=== PATIENT | male | born 1960 | race Caucasian/White ===

== ENCOUNTER 2017-11-02 12:07 | Inpatient (IN) | payer OTHER, MEDICAID ==
[~2017-11-02] VITALS: Ht 165.1 cm; Wt 54.0 kg
[2017-11-02 17:06] VITALS: BP 109/68
[2017-11-02] MEDS ORDERED: NYSTATIN ORAL SUSP 5 ML UDC ONE (19:53)
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
[2017-11-02] MEDS: NYSTATIN ORAL SUSP 5 ML UDC PO SCH (20:39)
[2017-11-02] MEDS: QUEtiapine 25 MG (SEROquel) TAB IMMEDIATE RELEASE PO SCH (20:40)
[2017-11-02] MEDS: ENOXAPARIN 30 MG/0.3 ML (LOVENOX) SYR SC SCH (20:40)
[2017-11-02] MEDS: oxyCODONE/APAP 5/325MG (PERCOCET 5) TABLET PO PRN (20:40)
[2017-11-02] MEDS: DOCUSATE SODIUM 100 MG (COLACE) CAP PO SCH (20:41)
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
[2017-11-03] MEDS: oxyCODONE/APAP 5/325MG (PERCOCET 5) TABLET PO PRN ×5 (03:43→21:26)
[2017-11-03 05:22] VITALS: BP 110/75
[2017-11-03] MEDS: NYSTATIN ORAL SUSP 5 ML UDC PO SCH ×3 (05:28→16:59)
[2017-11-03] MEDS: lisINopril 10 MG (PRINIVIL) TABLET PO SCH (07:55)
[2017-11-03] MEDS: ENOXAPARIN 30 MG/0.3 ML (LOVENOX) SYR SC SCH ×2 (07:55→21:25)
[2017-11-03] MEDS: DOCUSATE SODIUM 100 MG (COLACE) CAP PO SCH ×2 (07:56→21:26)
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
[2017-11-03] MEDS ORDERED: lisINopril 40 MG (PRINIVIL) TABLET PO SCH (09:00)
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
--- NOTE | 2017-11-03 13:29 | Physical Therapy Daily Note ---
PT Daily Note-Current Subjective "Perseverance" "I hope I worked hard today." Transfers Functional [place] Measure 0=Not Assessed/NA 4=Minimal Assistance 1=Total Assistance 5=Supervision or Setup 2=Maximal Assistance 6=Modified [place] 3=Moderate Assistance 7=Complete IndependenceIRFPAI Quality Coding Scale 6 Independent with activity with or without an assistive device 5 Patient requires set up or clean up by helper. Patient completes activity by themselves 4 Supervision or touching assist (CGA). [employer] provide cues , steadying assist 3 The helper provides less than half the effort to complete the activity 2 The helper provides more than half the effort to complete the activity 1 Dependent. The helper does all the effort to complete an activity 7 Patient refused to complete or attempt activity 9 The patient did not perform the activity before the current illness or injury 88 Not attempted due to Medical conditions or safety concerns Weight Bearing Right Lower Extremity: Right Non Weight Bearing Left Lower Extremity: Left Weight Bearing/Tolerated Treatments Supine to from sit with mod assist and assist to move his right LE. Sat EOB and performed AP, LAQ on the left. Worked on deep breathing and education on importance of upright mobility. Also discussed risk of pneumonia and bed sores. Pt able to sit EOB and scoot up towards the head of bed with CGA and light assist to lift his right leg. Pt in bed post treatment with needs met. Assessment Motivated and cooperative. Aware of his precautions. PT Short Term Goals Short Term Goals Time Frame: November 10, 2017 Transfers (B,C,W/C) (FIM): 4 Gait (FIM): 1 Gait Distance Comment: 5' Gait Level of Assist: 4 Gait Assistive Device: FWW Wheelchair Distance: 50' PT Sponge Fisherman Goals Sponge Fisherman Goals PT Sponge Fisherman Goals Time Frame: Nov 24, 2017 Transfers (B,C,W/C) (FIM): 5 Sit to Lying (QC): 4 Lying-Sitting on Side/Bed(QC): 4 Sit to Stand (QC): 4 Rollin Roll Left to Right (QC): 4 Chair/Oks-is-Nqjgx Xfer(QC): 4 Car Transfer (QC): 4 Gait (FIM): 1 Distance: 20' Walk 10 feet (QC): 4 Walk 10ft-Uneven Surface(QC): 4 Gait Level of Assist: 4 Gait Assistive Device: FWW Wheelchair (FIM): 6 Distance: 150' Wheel 50 feet with 2 turns (QC: 6 PT Plan Problem List Problem List: Activity Tolerance, Functional Strength, Safety, Balance, Gait, Transfer, Bed Mobility Treatment/Plan Treatment Plan: Continue Plan of Care Treatment Plan: Bed Mobility, Concurrent Therapy, Education, Functional Activity [place], Functional Strength, Group Therapy, Gait, Safety, Therapeutic Exercise, Transfers Treatment Duration: Nov 24, 2017 Frequency: At least 5 of 7 days/Wk (IRF) Estimated Hrs Per Day: 1.5 hours per day Patient and/or Family Agrees t: Yes Safety Risks/Education Patient Education: Reviewed Precautions, Safety Issues Teaching Recipient: Patient Teaching Methods: Demonstration Response to Teaching: Verbalize Understanding, Reinforcement Needed Time/GCodes Time In: 1300 Time Out: 1327 Total Billed Treatment Time: 27 Total Billed Treatment visit FA 27 MALI MATAMOROS PT November 03, 2017 13:29
[2017-11-03] MEDS ORDERED: RT-ALBUINH INH (13:31)
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
[2017-11-03] MEDS: SALIVA STIMULANT MOUTH SPRAY (BIOTENE) 1.5 OZ MM PRN (16:59)
[2017-11-03 17:07] VITALS: BP 123/70
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
[2017-11-03] MEDS: QUEtiapine 25 MG (SEROquel) TAB IMMEDIATE RELEASE PO SCH (21:26)
[2017-11-04] MEDS: NYSTATIN ORAL SUSP 5 ML UDC PO SCH ×4 (00:41→17:12)
[2017-11-04] MEDS: oxyCODONE/APAP 5/325MG (PERCOCET 5) TABLET PO PRN ×3 (02:44→19:45)
[2017-11-04 05:12] VITALS: BP 117/75
[2017-11-04 05:49] LABS: BASOPHILS % (AUTO) 0 % (0-10); EOSINOPHILS # (AUTO) 0.2 10^3/uL (0.0-0.3); EOSINOPHILS % (AUTO) 2 % (0-10); HEMATOCRIT 34 % (40-54); HEMOGLOBIN 11.3 G/DL (13.3-17.7); LYMPHOCYTES # (AUTO) 1.2 X 10^3 (1.0-4.0); LYMPHOCYTES % (AUTO) 15 % (12-44); MEAN CORPUSCULAR HEMOGLOBIN 30 PG (25-34); MEAN CORPUSCULAR HGB CONC 33 G/DL (32-36); MEAN CORPUSCULAR VOLUME 91 FL (80-99); MEAN PLATELET VOLUME 9.5 FL (7.4-10.4); MONOCYTES # (AUTO) 0.8 X 10^3 (0.0-1.0); MONOCYTES % (AUTO) 10 % (0-12); NEUTROPHILS # (AUTO) 5.8 X 10^3 (1.8-7.8); NEUTROPHILS % (AUTO) 72 % (42-75); PLATELET COUNT 290 10^3/uL (130-400); RED BLOOD COUNT 3.77 10^6/uL (4.35-5.85); RED CELL DISTRIBUTION WIDTH 14.4 % (10.0-14.5)
[2017-11-04 06:15] LABS: ALANINE AMINOTRANSFERASE 105 U/L (0-55); ALBUMIN 2.7 GM/DL (3.2-4.5); ALKALINE PHOSPHATASE 149 U/L (40-136); BILIRUBIN,TOTAL 0.7 MG/DL (0.1-1.0); BUN/CREATININE RATIO 29; CALCIUM 8.6 MG/DL (8.5-10.1); CARBON DIOXIDE 25 MMOL/L (21-32); CHLORIDE 102 MMOL/L (98-107); CREATININE SERUM 0.55 MG/DL (0.60-1.30); GFR ESTIMATED > 60; GLUCOSE 133 MG/DL (70-105); POTASSIUM 4.6 MMOL/L (3.6-5.0); SODIUM 136 MMOL/L (135-145); TOTAL PROTEIN 7.3 GM/DL (6.4-8.2)
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
[2017-11-04] MEDS: DOCUSATE SODIUM 10 MG/ML 10 ML UDC (COLACE) PEG SCH ×2 (08:50→21:00)
[2017-11-04] MEDS: lisINopril 10 MG (PRINIVIL) TABLET PO SCH (08:50)
[2017-11-04] MEDS: ENOXAPARIN 30 MG/0.3 ML (LOVENOX) SYR SC SCH ×2 (08:51→19:57)
--- NOTE | 2017-11-04 09:00 | Physical Therapy Daily Note ---
PT Daily Note-Current Subjective Patient in bed pre tx, agrees to PT, has 7/10 pain. Appearance Patient in wheelchair at bedside pre tx, has nurse call, phone, tray, all needs met. Mental Status Patient Orientation: Person, Place, Situation Attachments: PEG Tube cervical collar, bilateral knee immobilizers Transfers Functional [place] Measure 0=Not Assessed/NA 4=Minimal Assistance 1=Total Assistance 5=Supervision or Setup 2=Maximal Assistance 6=Modified [place] 3=Moderate Assistance 7=Complete IndependenceIRFPAI Quality Coding Scale 6 Independent with activity with or without an assistive device 5 Patient requires set up or clean up by helper. Patient completes activity by themselves 4 Supervision or touching assist (CGA). Alicia provide cues , steadying assist 3 The helper provides less than half the effort to complete the activity 2 The helper provides more than half the effort to complete the activity 1 Dependent. The helper does all the effort to complete an activity 7 Patient refused to complete or attempt activity 9 The patient did not perform the activity before the current illness or injury 88 Not attempted due to Medical conditions or safety concerns Transfers (B, C, W/C) (FIM): 3 Scootin Rollin Supine to/from Sit: 3 Sit to/from Stand: 3 Bed to/from Chair: 3 Patient performed a sliding board transfer with min/mod assist, he needs the board placed and some assistance with scooting, especially if he has to go uphill. Weight Bearing Right Lower Extremity: Right Non Weight Bearing Left Lower Extremity: Left Weight Bearing/Tolerated Wheelchair Training Does the Pt Use a Wheelchair?: Yes Wheelchair (FIM): 2 Distance: 100', 50' Wheelchair Level of Assist: 5 Type of Wheelchair: Manual Patient could not propel the wheelchair all the way back to his room due to right arm pain. Exercises Supine Ex: Ankle pumps, Quad Set, Glut sets, Straight leg raise, Hip abd/add Supine Reps: 20 Treatments bed mobility, transfers, functional strengthening, right leg brace was adjusted it slid down his leg and needed to be readjusted Assessment Current Status: Fair Progress Patient can now perform a sliding board transfer. PT Short Term Goals Short Term Goals Time Frame: November 10, 2017 Gait (FIM): 1 Gait Distance Comment: 5' Gait Level of Assist: 4 Gait Assistive Device: FWW Wheelchair Distance: 50' PT Recording Clerk Goals Recording Clerk Goals PT Recording Clerk Goals Time Frame: Nov 24, 2017 Transfers (B,C,W/C) (FIM): 5 Sit to Lying (QC): 4 Lying-Sitting on Side/Bed(QC): 4 Sit to Stand (QC): 4 Rollin Roll Left to Right (QC): 4 Chair/Uvz-sk-Tnkva Xfer(QC): 4 Car Transfer (QC): 4 Gait (FIM): 1 Distance: 20' Walk 10 feet (QC): 4 Walk 10ft-Uneven Surface(QC): 4 Gait Level of Assist: 4 Gait Assistive Device: FWW Wheelchair (FIM): 6 Distance: 150' Wheel 50 feet with 2 turns (QC: 6 PT Plan Problem List Problem List: Activity Tolerance, Functional Strength, Safety, Balance, Gait, Transfer, Bed Mobility, ROM Treatment/Plan Treatment Plan: Continue Plan of Care Treatment Plan: Bed Mobility, Concurrent Therapy, Education, Functional Activity Douglas, Functional Strength, Group Therapy, Gait, Safety, Therapeutic Exercise, Transfers Treatment Duration: Nov 24, 2017 Frequency: At least 5 of 7 days/Wk (IRF) Estimated Hrs Per Day: 1.5 hours per day Patient and/or Family Agrees t: Yes Safety Risks/Education Patient Education: Transfer Techniques, Reviewed Precautions, Correct Positioning, Safety Issues Teaching Recipient: Patient Teaching Methods: Demonstration, Discussion Response to Teaching: Reinforcement Needed Time/GCodes Time In: 815 Time Out: 900 Total Billed Treatment Time: 45 Total Billed Treatment 1 visit EX 15' FA 15' WCH 15' FARIHA REYES PT November 04, 2017 09:00
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
--- NOTE | 2017-11-04 10:07 | Speech Therapy Daily Note ---
Speech Daily Progress Note Subjective Date Seen by Provider: November 04, 2017 Time Seen by Provider: 09:00 The patient was seated upright in wheelchair upon entrance. The moment the clinician entered the room, the patient wished to return to bed. The clinician attempted to have the patient remain upright as he recently finished PT and was initiating OT in 30 minutes, however, the patient requested to lay down. With the aid of two RN's the patient was returned upright in bed for the session. Objective The patient was provided a [place] as he continues to expectorate thick copious secretions into tissues. The patient frequently clears his throat and coughs at baseline due to secretions. Oral Trials: The patient refused all PO oral trials stating all consistencies were "too cold" and he was "already cold enough." The clinician attempted puree (room temperature), however, the patient again deferred. The patient was provided extra blankets and stated he was comfortable following placement. Dysphagia Exercises: Base of tongue retraction, laryngeal closure, and pharyngeal wall contraction exercises were initiated on this date. The patient demonstrated limited accuracy and participation, as he frequently returned to previous topics of conversation. Three to five repetitions of each exercise were performed. Assessment Assessment Current Status: Poor Progress Treatment Plan Continue Plan of Care Communication Comprehension: 4 Expression: 5 Social Cognition Social Interaction: 4 Problem Solvin Memory: 3 Speech Short Term Goals Short Term Goals Short Term Goals 1. The patient will attend to a task for a duration of five minutes with mild clinician verbal prompting. 2. The patient will identify safety concerns in a common environment with 80% accuracy and mild clinician verbal cueing. 3. The patient will recall and demonstrate intelligibility strategies with 80% accuracy and mild clinician cueing. 4. The patient will tolerate 10/10 puree and honey-thickened liquid bolus trials without signs/symptoms of aspiration or laryngeal penetration. Time Frame-STG: Two Weeks Speech It Applications Manager Goals [facility]ci Goals 1. The patient will demonstrate improved cognitive linguistic skills for increased safety and function with ADL's. 2. The patient will tolerate trials of the least restrictive consistency without signs/symptoms of aspiration. Time Frame: Four Weeks Comprehension: 4 Expression: 5 Social Interaction: 5 Problem Solvin Memory: 4 Speech-Plan Treatment Plan Speech Therapy Treatment Plan: Continue Plan of Care Continue skilled speech pathology to target improved swallowing function. Treatment Duration: Dec 01, 2017 Frequency: 3 times per week Estimated Hrs Per Day: .5 hour per day Rehab Potential: Fair Safety Risks/Education Teaching Recipient: Patient Teaching Methods: Demonstration, Discussion Response to Teaching: Reinforcement Needed Education Topics Provided: Oropharyngeal Strengthening Exercises Time Speech Therapy Time In: 09:00 Speech Therapy Time Out: 09:30 Total Billed Time: 30 Billed Treatment Time 1, CHARLENE ALEXIS FOX November 04, 2017 10:07
[2017-11-04] MEDS: SALIVA STIMULANT MOUTH SPRAY (BIOTENE) 1.5 OZ MM PRN (12:41)
--- NOTE | 2017-11-04 13:01 | Occupational Ther Daily Note ---
OT Current Status-Daily Note Subjective Pt seen in room, up in bed, agreeable to OT and looking forward to shower. Pt did not report pain at beginning of tx and was more verbal about feeling hot and sweaty and cold during ADLs. Mental Status/Objective Functional [place] Measure 0=Not Assessed/NA 4=Minimal Assistance 1=Total Assistance 5=Supervision or Setup 2=Maximal Assistance 6=Modified [place] 3=Moderate Assistance 7=Complete Williams ADL-Treatment Pt needed mod assist to move from supine to sit EOB and to stand to use FWW. Mod assist stand pivot transfer and cues for hand placement. Pt transported to shower room per w/c and transferred mod assist to transfer tub bench. Both legs were positioned in knee extension on second shower chair. Both leg braces, cast boot, abdominal binder taken off for shower but cervical collar was left on. It was replaced with a dry one at end of shower. He was able to wash and dry chest , abdomen, arms, dave in front (50%), using hand held shower. OT helped wash hair and he did face and hands. He needed occasional cues to scoot back on chair. Nursing replaced dressings on knees, then legs were ian wrapped and cast boot/braces reapplied. Pt transferred mod assist back to w/c and mod assist back to bed. He was able to help lift L leg to get it into bed and needed help pulling him up in bed. He helped get shirt off over head, L arm before shower. Functional [place] Measure 0=Not Assessed/NA 4=Minimal Assistance 1=Total Assistance 5=Supervision or Setup 2=Maximal Assistance 6=Modified [place] 3=Moderate Assistance 7=Complete IndependenceIRFPAI Quality Coding Scale 6 Independent with activity with or without an assistive device 5 Patient requires set up or clean up by helper. Patient completes activity by themselves 4 Supervision or touching assist (CGA). [place] provide cues , steadying assist 3 The helper provides less than half the effort to complete the activity 2 The helper provides more than half the effort to complete the activity 1 Dependent. The helper does all the effort to complete an activity 7 Patient refused to complete or attempt activity 9 The patient did not perform the activity before the current illness or injury 88 Not attempted due to Medical conditions or safety concerns Bathing (FIM): 3 (Transfer tub bench, FWW) Bathing Location: L Arm, R Arm, Chest, Abdomen, Perineal Area Shower Transfer(FIM): 3 Education OT Patient Education: Modified ADL techniques, Progress toward Goal/Update tx plan, Purpose of tx/functional activities, Transfer techniques Teaching Recipient: Patient Teaching Methods: Discussion Response to Teaching: Verbalize Understanding, Return Demonstration, Reinforcement Needed OT Short Term Goals Short Term Goals Time Frame: November 11, 2017 Bathing(FIM): 4 Toileting(FIM): 3 Toilet/Commode Transfer(FIM): 4 Additional Short Term Goals: 1-Demonstrate ADL Tasks, 2-Verbalize Understanding , 3-ImproveStrength/Douglas 1=Demonstrate adherence to instructed precautions during ADL tasks. 2=Patient will verbalize/demonstrate understanding of assistive devices/ modifications for ADL. 3=Patient will improve strength/tolerance for activity to enable patient to perform ADL's. OT Fpc Goals Canal Superintendent Goals Time Frame: Nov 25, 2017 Eating (FIM): 5 Eating (QC): 5 Groomin Oral Hygiene (QC): 6 Bathing(FIM): 5 Shower/Bathe Self (QC): 4 Upper Body Dressing(FIM): 5 Upper Body Dressing (QC): 5 Lower Body Dressing(FIM): 5 Lower Body Dressing (QC): 5 On/Off Footwear (QC): 5 Toileting(FIM): 5 Toileting Hygiene (QC): 4 Toilet/Commode Transfer(FIM): 5 Toilet/Commode Transfer (QC): 4 Shower Transfer(FIM): 5 Comprehension(FIM): 4 Expression (FIM): 5 Social Interaction(FIM): 5 Problem Solving(FIM): 4 Memory(FIM): 4 Additional Goals: 1-Demonstrate ADL Tasks, 2-Verbalize Understanding, 3- ImproveStrength/Douglas 1=Demonstrate adherence to instructed precautions during ADL tasks. 2=Patient will verbalize/demonstrate understanding of assistive devices/ modifications for ADL. 3=Patient will improve strength/tolerance for activity to enable patient to perform ADL's. OT Education/Plan Problem List/Assessment Pt would benefot from skilled OT to increase his independence in basic self care to allow him to safely return home Discharge Recommendations Plan/Recommendations: Continue POC Treatment Plan/Plan of Care Patient would benefit from OT for education, treatment and training to promote independence in ADL's, mobility, safety and/or upper extremity function for ADL' s. Plan of Care: ADL Retraining, Caregiver Training, Functional Mobility, Group Exercise/Act as Ind (education, exercise, funct activity, activity tolerance, socialization, memory), Orthotic Fitting/Training, UE Funct Exercise/Act, UE Neuromus Re-Ed/Coord, Visual/Perceptual Retrain, W/C Management Training Treatment Duration: Nov 25, 2017 Frequency: At least 5 of 7 days/Wk (IRF) Estimated Hrs Per Day: 1.5 hours per day (1.25 to 1.5) Agreement: Yes Rehab Potential: Fair Time/GCodes Start Time: 09:30 Stop Time: 10:45 Total Time Billed (hr/min): 75 Billed Treatment Time visit, 75 minutes ADL AIDEN GARDINER OT November 04, 2017 13:01
--- NOTE | 2017-11-04 13:29 | Physical Therapy Daily Note ---
PT Daily Note-Current Subjective Patient in bed pre tx, agrees to PT, no complaints of pain at rest. Appearance Patient in bed post tx with nurse call, phone, tray, all needs met. Mental Status Patient Orientation: Person, Place, Situation Attachments: PEG Tube cervical collar, leg braces Transfers Functional [place] Measure 0=Not Assessed/NA 4=Minimal Assistance 1=Total Assistance 5=Supervision or Setup 2=Maximal Assistance 6=Modified [place] 3=Moderate Assistance 7=Complete IndependenceIRFPAI Quality Coding Scale 6 Independent with activity with or without an assistive device 5 Patient requires set up or clean up by helper. Patient completes activity by themselves 4 Supervision or touching assist (CGA). [place] provide cues , steadying assist 3 The helper provides less than half the effort to complete the activity 2 The helper provides more than half the effort to complete the activity 1 Dependent. The helper does all the effort to complete an activity 7 Patient refused to complete or attempt activity 9 The patient did not perform the activity before the current illness or injury 88 Not attempted due to Medical conditions or safety concerns Weight Bearing Right Lower Extremity: Right Non Weight Bearing Left Lower Extremity: Left Weight Bearing/Tolerated Exercises Supine Ex: Ankle pumps, Quad Set, Glut sets, Straight leg raise, Hip abd/add Supine Reps: 20 (2 sets) Treatments functional strengthening/ROM Assessment Current Status: Fair Progress improving AROM of right leg PT Short Term Goals Short Term Goals Time Frame: November 10, 2017 Gait (FIM): 1 Gait Distance Comment: 5' Gait Level of Assist: 4 Gait Assistive Device: FWW Wheelchair Distance: 100', 50' PT Kier Drier Goals Kier Drier Goals PT Chcf Goals Time Frame: Nov 24, 2017 Transfers (B,C,W/C) (FIM): 5 Sit to Lying (QC): 4 Lying-Sitting on Side/Bed(QC): 4 Sit to Stand (QC): 4 Rollin Roll Left to Right (QC): 4 Chair/Inq-dt-Afjce Xfer(QC): 4 Car Transfer (QC): 4 Gait (FIM): 1 Distance: 20' Walk 10 feet (QC): 4 Walk 10ft-Uneven Surface(QC): 4 Gait Level of Assist: 4 Gait Assistive Device: FWW Wheelchair (FIM): 6 Distance: 150' Wheel 50 feet with 2 turns (QC: 6 PT Plan Problem List Problem List: Activity Tolerance, Functional Strength, Safety, Balance, Gait, Transfer, Bed Mobility, ROM Treatment/Plan Treatment Plan: Continue Plan of Care Treatment Plan: Bed Mobility, Concurrent Therapy, Education, Functional Activity [place], Functional Strength, Group Therapy, Gait, Safety, Therapeutic Exercise, Transfers Treatment Duration: Nov 24, 2017 Frequency: At least 5 of 7 days/Wk (IRF) Estimated Hrs Per Day: 1.5 hours per day Patient and/or Family Agrees t: Yes Safety Risks/Education Patient Education: Correct Positioning, Safety Issues Teaching Recipient: Patient Teaching Methods: Demonstration, Discussion Response to Teaching: Reinforcement Needed Time/GCodes Time In: 1300 Time Out: 1330 Total Billed Treatment Time: 30 Total Billed Treatment 1 visit EX 30' FARIHA REYES PT November 04, 2017 13:29
[2017-11-04 16:51] VITALS: BP 115/71
[2017-11-04] MEDS: QUEtiapine 25 MG (SEROquel) TAB IMMEDIATE RELEASE PO SCH (21:35)
[2017-11-05] MEDS: NYSTATIN ORAL SUSP 5 ML UDC PO SCH ×5 (00:01→23:17)
[2017-11-05] MEDS: oxyCODONE/APAP 5/325MG (PERCOCET 5) TABLET PO PRN ×3 (04:35→13:10)
[2017-11-05 05:35] VITALS: BP 133/74
[2017-11-05] MEDS: DOCUSATE SODIUM 10 MG/ML 10 ML UDC (COLACE) PEG SCH ×2 (08:59→20:57)
[2017-11-05] MEDS: lisINopril 10 MG (PRINIVIL) TABLET PO SCH (08:59)
[2017-11-05] MEDS: ENOXAPARIN 30 MG/0.3 ML (LOVENOX) SYR SC SCH ×2 (08:59→20:09)
--- NOTE | 2017-11-05 10:13 | Physical Therapy Daily Note ---
PT Daily Note-Current Subjective Agreeable to PT. Agrees to get out of bed to the chair. Reports his mom is coming to visit today. Transfers Functional [place] Measure 0=Not Assessed/NA 4=Minimal Assistance 1=Total Assistance 5=Supervision or Setup 2=Maximal Assistance 6=Modified [place] 3=Moderate Assistance 7=Complete IndependenceIRFPAI Quality Coding Scale 6 Independent with activity with or without an assistive device 5 Patient requires set up or clean up by helper. Patient completes activity by themselves 4 Supervision or touching assist (CGA). [place] provide cues , steadying assist 3 The helper provides less than half the effort to complete the activity 2 The helper provides more than half the effort to complete the activity 1 Dependent. The helper does all the effort to complete an activity 7 Patient refused to complete or attempt activity 9 The patient did not perform the activity before the current illness or injury 88 Not attempted due to Medical conditions or safety concerns Transfers (B, C, W/C) (FIM): 3 Supine to/from Sit: 3 (assist with right leg and trunk) Sit to/from Stand: 3 (mod assist to come to full stand ) Chair/Flj-sg-Fximq Xfer(QC): 3 Mod assist with transfer and maintenance of NWB right LE. Up to chair after treatment. Weight Bearing Right Lower Extremity: Right Non Weight Bearing Left Lower Extremity: Left Weight Bearing/Tolerated Assessment Pt is pleasant and cooperative. PT Short Term Goals Short Term Goals Time Frame: November 10, 2017 Gait (FIM): 1 Gait Distance Comment: 5' Gait Level of Assist: 4 Gait Assistive Device: FWW Wheelchair Distance: 100', 50' PT Mica Miner Blasting Goals Alf Goals PT Alf Goals Time Frame: Nov 24, 2017 Transfers (B,C,W/C) (FIM): 5 Sit to Lying (QC): 4 Lying-Sitting on Side/Bed(QC): 4 Sit to Stand (QC): 4 Rollin Roll Left to Right (QC): 4 Chair/Lth-kw-Yoiix Xfer(QC): 4 Car Transfer (QC): 4 Gait (FIM): 1 Distance: 20' Walk 10 feet (QC): 4 Walk 10ft-Uneven Surface(QC): 4 Gait Level of Assist: 4 Gait Assistive Device: FWW Wheelchair (FIM): 6 Distance: 150' Wheel 50 feet with 2 turns (QC: 6 PT Plan Problem List Problem List: Activity Tolerance, Functional Strength, Safety Treatment/Plan Treatment Plan: Continue Plan of Care Treatment Plan: Bed Mobility, Concurrent Therapy, Education, Functional Activity [place], Functional Strength, Group Therapy, Gait, Safety, Therapeutic Exercise, Transfers Treatment Duration: Nov 24, 2017 Frequency: At least 5 of 7 days/Wk (IRF) Estimated Hrs Per Day: 1.5 hours per day Patient and/or Family Agrees t: Yes Safety Risks/Education Patient Education: Transfer Techniques, Reviewed Precautions, Safety Issues Teaching Recipient: Patient Teaching Methods: Discussion Response to Teaching: Reinforcement Needed Time/GCodes Time In: 953 Time Out: 1017 Total Billed Treatment Time: 24 Total Billed Treatment visit FA 24 MALI MATAMOROS PT November 05, 2017 10:13
[2017-11-05] MEDS: ARTIFICAL TEARS 0.4 ML UNIT DOSE (REFRESH PLUS) OU SCH ×3 (14:10→23:14)
[2017-11-05] MEDS: oxyCODONE/APAP 5/325MG (PERCOCET 5) TABLET PEG PRN (17:24)
[2017-11-05 18:00] VITALS: BP 113/70
[2017-11-05] MEDS ORDERED: ARTIFICAL TEARS 0.4 ML UNIT DOSE (REFRESH PLUS) OU SCH (18:00)
[2017-11-05] MEDS: QUEtiapine 25 MG (SEROquel) TAB IMMEDIATE RELEASE PEG SCH (20:57)
[2017-11-06] MEDS: oxyCODONE/APAP 5/325MG (PERCOCET 5) TABLET PEG PRN ×4 (01:08→21:06)
[2017-11-06 05:44] VITALS: BP 128/78
[2017-11-06] MEDS: NYSTATIN ORAL SUSP 5 ML UDC PO SCH ×3 (06:47→18:01)
[2017-11-06] MEDS: ARTIFICAL TEARS 0.4 ML UNIT DOSE (REFRESH PLUS) OU SCH ×3 (06:47→18:01)
[2017-11-06] MEDS: DOCUSATE SODIUM 10 MG/ML 10 ML UDC (COLACE) PEG SCH ×2 (09:23→21:06)
[2017-11-06] MEDS: lisINopril 10 MG (PRINIVIL) TABLET PEG SCH (09:23)
[2017-11-06] MEDS: ENOXAPARIN 30 MG/0.3 ML (LOVENOX) SYR SC SCH ×2 (09:24→21:06)
[2017-11-06 17:35] VITALS: BP 139/96
[2017-11-06] MEDS: QUEtiapine 25 MG (SEROquel) TAB IMMEDIATE RELEASE PEG SCH (21:06)
[2017-11-07] MEDS: NYSTATIN ORAL SUSP 5 ML UDC PO SCH ×4 (00:38→18:17)
[2017-11-07] MEDS: ARTIFICAL TEARS 0.4 ML UNIT DOSE (REFRESH PLUS) OU SCH ×4 (00:38→18:17)
[2017-11-07] MEDS: oxyCODONE/APAP 5/325MG (PERCOCET 5) TABLET PEG PRN ×4 (05:05→18:51)
[2017-11-07 05:21] VITALS: BP 125/75
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
[2017-11-07] MEDS: lisINopril 10 MG (PRINIVIL) TABLET PEG SCH (08:34)
[2017-11-07] MEDS: DOCUSATE SODIUM 10 MG/ML 10 ML UDC (COLACE) PEG SCH ×2 (08:34→20:29)
[2017-11-07] MEDS: ENOXAPARIN 30 MG/0.3 ML (LOVENOX) SYR SC SCH ×2 (08:34→20:29)
--- NOTE | 2017-11-07 09:04 | Physical Therapy Daily Note ---
PT Daily Note-Current Subjective Pt laying Supine in bed upon arrival. Pt reports not sleeping well last night & requests to visit with Dr about meds for sleeping. Pt agrees to PT. Pain Numeric Pain Scale: 8 Location: Right Location Body Site: Knee Pain Description: Stabbing Mental Status Patient Orientation: Person, Place, Situation Transfers Functional [place] Measure 0=Not Assessed/NA 4=Minimal Assistance 1=Total Assistance 5=Supervision or Setup 2=Maximal Assistance 6=Modified [place] 3=Moderate Assistance 7=Complete IndependenceIRFPAI Quality Coding Scale 6 Independent with activity with or without an assistive device 5 Patient requires set up or clean up by helper. Patient completes activity by themselves 4 Supervision or touching assist (CGA). [place] provide cues , steadying assist 3 The helper provides less than half the effort to complete the activity 2 The helper provides more than half the effort to complete the activity 1 Dependent. The helper does all the effort to complete an activity 7 Patient refused to complete or attempt activity 9 The patient did not perform the activity before the current illness or injury 88 Not attempted due to Medical conditions or safety concerns [place] Supine to/from Sit: 4 Sit to/from Stand: 3 Sit to Stand (QC): 3 Weight Bearing Right Lower Extremity: Right Non Weight Bearing Left Lower Extremity: Left Weight Bearing/Tolerated Gait Training Does the Patient Walk?: Yes Distance (FIM): 1=up to 49 ft Distance: 5' Gait Level of Assist: 3 Gait Persons Needed: 1 Gait Assistive Device: FWW Pt given VC to keep NWB status for RLE. Pt ambulates very slow. Exercises Supine Ex: Ankle pumps, Quad Set, Glut sets, Heel Slides, Straight leg raise, Hip abd/add Supine Reps: 15 Treatments Pt completes Supine Ex with a couple of rest breaks. Nurse giving meds during tx. Pt transfers to EOB due to need for change of position. Pt rests at EOB before transferring to Standing using FWW at Mod A. Pt transfers to recliner to rest. Pt completes limited Seated Ex due to discomfort. Pt resting at end of tx with all needs met, including call light in hand. Assessment Current Status: Good Progress Pt reports decrease in pain from previous tx. PT Short Term Goals Short Term Goals Time Frame: November 10, 2017 Gait (FIM): 1 Gait Distance Comment: 5' Gait Level of Assist: 4 Gait Assistive Device: FWW Wheelchair Distance: 100', 50' PT Custodial Goals Hourly Manager Goals PT Custodial Goals Time Frame: Nov 24, 2017 Transfers (B,C,W/C) (FIM): 5 Sit to Lying (QC): 4 Lying-Sitting on Side/Bed(QC): 4 Sit to Stand (QC): 4 Rollin Roll Left to Right (QC): 4 Chair/Cjv-uw-Rvfcm Xfer(QC): 4 Car Transfer (QC): 4 Gait (FIM): 1 Distance: 20' Walk 10 feet (QC): 4 Walk 10ft-Uneven Surface(QC): 4 Gait Level of Assist: 4 Gait Assistive Device: FWW Wheelchair (FIM): 6 Distance: 150' Wheel 50 feet with 2 turns (QC: 6 PT Plan Problem List Problem List: Activity Tolerance, Functional Strength, Safety, Balance, Gait, Transfer, Bed Mobility Treatment/Plan Treatment Plan: Continue Plan of Care Treatment Plan: Bed Mobility, Concurrent Therapy, Education, Functional Activity [place], Functional Strength, Group Therapy, Gait, Safety, Therapeutic Exercise, Transfers Treatment Duration: Nov 24, 2017 Frequency: At least 5 of 7 days/Wk (IRF) Estimated Hrs Per Day: 1.5 hours per day Patient and/or Family Agrees t: Yes Safety Risks/Education Patient Education: Transfer Techniques, Correct Positioning, Safety Issues Teaching Recipient: Patient Teaching Methods: Discussion Response to Teaching: Verbalize Understanding Time/GCodes Time In: 815 Time Out: 900 Total Billed Treatment Time: 45 Total Billed Treatment 1, EX (20m) & FA x2 (25m) G Codes Necessary: GAYE Navarrete PTA November 07, 2017 09:04
--- NOTE | 2017-11-07 10:59 | Occupational Ther Daily Note ---
OT Current Status-Daily Note Subjective Pt seen in room, up in recliner, agreeable to OT. Does not want to shower today but agreeable to sponge bath. No pain mentioned until end of tx when pt requested pain meds. Appearance Alert, cooperative Mental Status/Objective Functional [place] Measure 0=Not Assessed/NA 4=Minimal Assistance 1=Total Assistance 5=Supervision or Setup 2=Maximal Assistance 6=Modified [place] 3=Moderate Assistance 7=Complete [place] ADL-Treatment Pt was able to wash and dry face and hands, arms, chest, abdomen and dave in front, sponge bath. He needed min-mod assist sit to stand, using lift chair with seat elevated and min assist to maintain standing. He was unable to release walker to wash bottom but was able to help pull shorts up when standing , FWW. He put shirt on with setup and needed help to get pants over feet, using grabber. He could pick remover R heel off the floor briefly. Once they were up to knees, he could pull them up. Help to put slipper sock on L foot and take it off. Transferred min assist to bed, was able to get L leg into bed but needed help with R one. Functional [place] Measure 0=Not Assessed/NA 4=Minimal Assistance 1=Total Assistance 5=Supervision or Setup 2=Maximal Assistance 6=Modified [place] 3=Moderate Assistance 7=Complete IndependenceIRFPAI Quality Coding Scale 6 Independent with activity with or without an assistive device 5 Patient requires set up or clean up by helper. Patient completes activity by themselves 4 Supervision or touching assist (CGA). [place] provide cues , steadying assist 3 The helper provides less than half the effort to complete the activity 2 The helper provides more than half the effort to complete the activity 1 Dependent. The helper does all the effort to complete an activity 7 Patient refused to complete or attempt activity 9 The patient did not perform the activity before the current illness or injury 88 Not attempted due to Medical conditions or safety concerns Grooming (FIM): 5 (Setup. Shaved while head was supported on pillow, electric razor. Cervical collar on) Bathing (FIM): 3 (50%) Bathing Location: L Arm, R Arm, Chest, Abdomen, Perineal Area Upper Body (FIM): 5 Lower Body Dressing (FIM): 2 Transfers (B, C, W/C) (FIM): 4 Other Treatment Pt education on stretching at R shoulder. Has incision that crosses front part of shoulder and is tight. Pt did 10 stretches with flex using exercise bar. Also did 10 stretches with hands together, holding stretch approx 15 seconds. Pt did 10 reps stretch for int/ext rotation and also for abduction. He is unable to put R hand on top of head due to stretching with combined shoulder flex and elbow flex. Pt verbalized understanding and return demo, stretches he can do on his own. Pt left up in bed, 4 rails up, all needs met. Education OT Patient Education: Exercise program, Progress toward Goal/Update tx plan, Purpose of tx/functional activities Teaching Recipient: Patient Teaching Methods: Demonstration, Discussion Response to Teaching: Verbalize Understanding, Return Demonstration, Reinforcement Needed OT Short Term Goals Short Term Goals Time Frame: November 11, 2017 Bathing(FIM): 4 Toileting(FIM): 3 Toilet/Commode Transfer(FIM): 4 Additional Short Term Goals: 1-Demonstrate ADL Tasks, 2-Verbalize Understanding , 3-ImproveStrength/[place] 1=Demonstrate adherence to instructed precautions during ADL tasks. 2=Patient will verbalize/demonstrate understanding of assistive devices/ modifications for ADL. 3=Patient will improve strength/tolerance for activity to enable patient to perform ADL's. OT Transport Aircrewman Goals Transport Aircrewman Goals Time Frame: Nov 25, 2017 Eating (FIM): 5 Eating (QC): 5 Groomin Oral Hygiene (QC): 6 Bathing(FIM): 5 Shower/Bathe Self (QC): 4 Upper Body Dressing(FIM): 5 Upper Body Dressing (QC): 5 Lower Body Dressing(FIM): 5 Lower Body Dressing (QC): 5 On/Off Footwear (QC): 5 Toileting(FIM): 5 Toileting Hygiene (QC): 4 Toilet/Commode Transfer(FIM): 5 Toilet/Commode Transfer (QC): 4 Shower Transfer(FIM): 5 Comprehension(FIM): 4 Expression (FIM): 5 Social Interaction(FIM): 5 Problem Solving(FIM): 4 Memory(FIM): 4 Additional Goals: 1-Demonstrate ADL Tasks, 2-Verbalize Understanding, 3- ImproveStrength/[place] 1=Demonstrate adherence to instructed precautions during ADL tasks. 2=Patient will verbalize/demonstrate understanding of assistive devices/ modifications for ADL. 3=Patient will improve strength/tolerance for activity to enable patient to perform ADL's. OT Education/Plan Problem List/Assessment Pt would benefot from skilled OT to increase his independence in basic self care to allow him to safely return home Discharge Recommendations Plan/Recommendations: Continue POC Treatment Plan/Plan of Care Patient would benefit from OT for education, treatment and training to promote independence in ADL's, mobility, safety and/or upper extremity function for ADL' s. Plan of Care: ADL Retraining, Caregiver Training, Functional Mobility, Group Exercise/Act as Ind (education, exercise, funct activity, activity tolerance, socialization, memory), Orthotic Fitting/Training, UE Funct Exercise/Act, UE Neuromus Re-Ed/Coord, Visual/Perceptual Retrain, W/C Management Training Treatment Duration: Nov 25, 2017 Frequency: At least 5 of 7 days/Wk (IRF) Estimated Hrs Per Day: 1.5 hours per day (1.25 to 1.5) Agreement: Yes Rehab Potential: Fair Time/GCodes Start Time: 09:30 Stop Time: 10:30 Total Time Billed (hr/min): 60 Billed Treatment Time visit, 30 minutes ADL, 30 minutes exercise AIDEN GARDINER OT November 07, 2017 10:59
--- NOTE | 2017-11-07 13:34 | Speech Therapy Daily Note ---
Speech Daily Progress Note Subjective Date Seen by Provider: November 07, 2017 Time Seen by Provider: 10:00 The patient was seated upright in recliner upon entrance. The patient greeted the clinician appropriately and was agreeable to participation in the dysphagia treatment session. Objective The patient continues to use his [place] to expectorate thick copious secretions into tissues. The patient frequently clears his throat and coughs at baseline due to secretions. The patient's voice remains somewhat aphonic. Oral Trials: PO trials (ten trials total) of ice chips were provided on this date. While no throat clearing was demonstrated, the patient did demonstrate a wet vocal quality throughout and following the trials. The patient independently expectorated secretions approximately two minutes following the trials which did clear the quality of his voice. Dysphagia Exercises: Base of tongue retraction, laryngeal closure, and pharyngeal wall contraction exercises were initiated on this date. The patient demonstrated improved and increased accuracy and participation. Ten repetitions of each exercise were performed with mild clinician cueing. The patient remains extremely motivated for improvement. Assessment Assessment Current Status: Fair Progress Treatment Plan Continue Plan of Care Communication Comprehension: 4 Expression: 5 Social Cognition Social Interaction: 4 Problem Solvin Memory: 3 Speech Short Term Goals Short Term Goals Short Term Goals 1. The patient will attend to a task for a duration of five minutes with mild clinician verbal prompting. 2. The patient will identify safety concerns in a common environment with 80% accuracy and mild clinician verbal cueing. 3. The patient will recall and demonstrate intelligibility strategies with 80% accuracy and mild clinician cueing. 4. The patient will tolerate 10/10 puree and honey-thickened liquid bolus trials without signs/symptoms of aspiration or laryngeal penetration. Time Frame-STG: Two Weeks Speech Retirement Goals Retirement Goals 1. The patient will demonstrate improved cognitive linguistic skills for increased safety and function with ADL's. 2. The patient will tolerate trials of the least restrictive consistency without signs/symptoms of aspiration. Time Frame: Four Weeks Comprehension: 4 Expression: 5 Social Interaction: 5 Problem Solvin Memory: 4 Speech-Plan Treatment Plan Speech Therapy Treatment Plan: Continue Plan of Care Continue skilled speech pathology to target improved swallowing safety. Treatment Duration: Dec 01, 2017 Frequency: 3 times per week Estimated Hrs Per Day: .5 hour per day Rehab Potential: Fair Safety Risks/Education Teaching Recipient: Patient Teaching Methods: Demonstration, Discussion Response to Teaching: Return Demonstration Education Topics Provided: Oropharyngeal Exercises Time Speech Therapy Time In: 09:00 Speech Therapy Time Out: 09:30 Total Billed Time: 30 Billed Treatment Time 1, ALEXIS TOTH November 07, 2017 13:34
--- NOTE | 2017-11-07 15:21 | Therapy Group Daily Note ---
Therapy Daily Group Note Patient Education Topic Other List Below (ARU Description) Exercises LE Seated Exercise, UE Exercise Other/Notes Pt was propelled in [facility] to PT/OT Group. Group consisted of Introduction (Name, Current Location & Personal Fact), Socialization, UE/LE Ex with Theraband, ARU Description, Current Events in the form of Jeopardy activity & Words of Inspiration for new patients. Pt actively participated in Group by completing Seated Ex as well as giving verbal responses to questions when asked. Pt also gave his Word of Inspiration during Group. Pt was very vocal and knew many of the Current Events answers during activity. Pt returned to room at the end of Group via [facility]. Pt has all needs met, including call light in hand. Start Time: 13:00 Stop Time: 14:05 Total Billed Treatment Time: 65 Total Billed Treatment 1, GRP (65m) GAYE GONSALES RESIDENTIAL ASSISTANT November 07, 2017 15:21
[2017-11-07 16:53] VITALS: BP 108/69
[2017-11-07] MEDS: QUEtiapine 25 MG (SEROquel) TAB IMMEDIATE RELEASE PEG SCH (20:29)
[2017-11-07] MEDS: traZODone 50 MG (DESYREL) TAB PO SCH (20:29)
[2017-11-08] MEDS: NYSTATIN ORAL SUSP 5 ML UDC PO SCH ×4 (00:05→17:30)
[2017-11-08] MEDS: ARTIFICAL TEARS 0.4 ML UNIT DOSE (REFRESH PLUS) OU SCH ×4 (00:05→17:30)
[2017-11-08] MEDS: oxyCODONE/APAP 5/325MG (PERCOCET 5) TABLET PEG PRN ×4 (03:32→19:15)
[2017-11-08 05:25] VITALS: BP 112/72
[2017-11-08 08:49] LABS: ALBUMIN 2.8 GM/DL (3.2-4.5); BILIRUBIN,DIRECT 0.4 MG/DL (0.0-0.3); BILIRUBIN,INDIRECT 0.2 MG/DL; BILIRUBIN,TOTAL 0.6 MG/DL (0.1-1.0); TOTAL PROTEIN 7.4 GM/DL (6.4-8.2)
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
--- NOTE | 2017-11-08 09:01 | Physical Therapy Daily Note ---
PT Daily Note-Current Subjective Pt. in bed agrees to Therapy. States he feels he is making progress but fatigues quickly. States his Mom and will care for him at home FT if needed Pain Numeric Pain Scale: 3 Location: Right Location Body Site: Thigh Pain Description: Ache Comment: during TRFs Mental Status Patient Orientation: Mumbles Attachments: PEG Tube, Other-See Comments (bilat LE braces) Transfers Functional [place] Measure 0=Not Assessed/NA 4=Minimal Assistance 1=Total Assistance 5=Supervision or Setup 2=Maximal Assistance 6=Modified [place] 3=Moderate Assistance 7=Complete IndependenceIRFPAI Quality Coding Scale 6 Independent with activity with or without an assistive device 5 Patient requires set up or clean up by helper. Patient completes activity by themselves 4 Supervision or touching assist (CGA). [place] provide cues , steadying assist 3 The helper provides less than half the effort to complete the activity 2 The helper provides more than half the effort to complete the activity 1 Dependent. The helper does all the effort to complete an activity 7 Patient refused to complete or attempt activity 9 The patient did not perform the activity before the current illness or injury 88 Not attempted due to Medical conditions or safety concerns Transfers (B, C, W/C) (FIM): 3 Scootin Rollin Supine to/from Sit: 5 Bed to/from Chair: 3 Weight Bearing Right Lower Extremity: Right Non Weight Bearing Left Lower Extremity: Left Weight Bearing/Tolerated Wheelchair Training Does the Pt Use a Wheelchair?: Yes Wheelchair (FIM): 4 Wheelchair Distance: 3=150 ft Wheelchair Level of Assist: 4 Type of Wheelchair: Manual needs assist to manage arm rest back in place. needs assist to manage extended leg rests Exercises Supine Ex: Ankle pumps (left HC stretch x 4 20s), Quad Set, Rolling, Glut sets , Straight leg raise, Hip abd/add Supine Reps: 10 (x2) Treatments emphasis on sup to sit via rolling to side. pt. did this indep in hosp bed as well as well as on Rx table. Pt. explains his situation at home as bed against wall and only way is from one side ...toward his right to exit bed Assessment Current Status: Good Progress improved sup to sit, needed assist at mod level a 1 trial w/c to bed and min to CGA 6 trials, pts. arms are strong but the limitation of bilat fixed extended LEs with limited wt bearing causes great limited TRF indep PT Short Term Goals Short Term Goals Time Frame: November 10, 2017 Gait (FIM): 1 Gait Distance Comment: 5' Gait Level of Assist: 4 Gait Assistive Device: FWW Wheelchair Distance: 100', 50' PT Cement Mason Goals Nursing Home Goals PT Nursing Home Goals Time Frame: Nov 24, 2017 Transfers (B,C,W/C) (FIM): 5 Sit to Lying (QC): 4 Lying-Sitting on Side/Bed(QC): 4 Sit to Stand (QC): 4 Rollin Roll Left to Right (QC): 4 Chair/Lhr-up-[place]ct[place] Xfer(QC): 4 Car Transfer (QC): 4 Gait (FIM): 1 Distance: 20' Walk 10 feet (QC): 4 Walk 10ft-Uneven Surface(QC): 4 Gait Level of Assist: 4 Gait Assistive Device: FWW Wheelchair (FIM): 6 Distance: 150' Wheel 50 feet with 2 turns (QC: 6 PT Plan Treatment/Plan Treatment Plan: Continue Plan of Care Treatment Plan: Bed Mobility, Concurrent Therapy, Education, Functional Activity [place], Functional Strength, Group Therapy, Gait, Safety, Therapeutic Exercise, Transfers Treatment Duration: Nov 24, 2017 Frequency: At least 5 of 7 days/Wk (IRF) Estimated Hrs Per Day: 1.5 hours per day Patient and/or Family Agrees t: Yes Safety Risks/Education Patient Education: Transfer Techniques, Correct Positioning, W/C Management, Disease Process, Safety Issues Teaching Recipient: Patient Teaching Methods: Demonstration, Discussion Response to Teaching: Verbalize Understanding, Return Demonstration, Reinforcement Needed Time/GCodes Time In: 800 Time Out: 900 Total Billed Treatment Time: 60 Total Billed Treatment 1,EX15m,WC15m,FA30m G Codes Necessary: MISHA Bell TREE SURGEON November 08, 2017 09:01
[2017-11-08] MEDS: DOCUSATE SODIUM 10 MG/ML 10 ML UDC (COLACE) PEG SCH ×2 (09:04→20:59)
[2017-11-08] MEDS: ENOXAPARIN 30 MG/0.3 ML (LOVENOX) SYR SC SCH ×2 (09:05→20:15)
[2017-11-08] MEDS: lisINopril 10 MG (PRINIVIL) TABLET PEG SCH (09:05)
--- NOTE | 2017-11-08 09:31 | Speech Therapy Daily Note ---
Speech Daily Progress Note Subjective Date Seen by Provider: November 08, 2017 Time Seen by Provider: 09:00 The patient was seated upright in recliner upon entrance. The patient greeted the clinician appropriately and was agreeable to participation in the dysphagia treatment session. Objective The patient's voice remains somewhat aphonic. Oral Trials: PO trials (ten trials total) of ice chips were provided on this date. While no throat clearing was demonstrated, the patient did demonstrate an intermittent wet vocal quality throughout and following the trials. Dysphagia Exercises: Base of tongue retraction, laryngeal closure, and pharyngeal wall contraction exercises were continued on this date. The patient demonstrated improved and increased accuracy and participation. Ten repetitions of each exercise were performed with mild clinician cueing. The patient remains extremely motivated for improvement. Assessment Assessment Current Status: Good Progress Treatment Plan Continue Plan of Care Communication Comprehension: 4 Expression: 5 Social Cognition Social Interaction: 4 Problem Solvin Memory: 3 Speech Short Term Goals Short Term Goals Short Term Goals 1. The patient will attend to a task for a duration of five minutes with mild clinician verbal prompting. 2. The patient will identify safety concerns in a common environment with 80% accuracy and mild clinician verbal cueing. 3. The patient will recall and demonstrate intelligibility strategies with 80% accuracy and mild clinician cueing. 4. The patient will tolerate 10/10 puree and honey-thickened liquid bolus trials without signs/symptoms of aspiration or laryngeal penetration. Time Frame-STG: Two Weeks Speech Detention Goals Transfer Professor Goals 1. The patient will demonstrate improved cognitive linguistic skills for increased safety and function with ADL's. 2. The patient will tolerate trials of the least restrictive consistency without signs/symptoms of aspiration. Time Frame: Four Weeks Comprehension: 4 Expression: 5 Social Interaction: 5 Problem Solvin Memory: 4 Speech-Plan Treatment Plan Speech Therapy Treatment Plan: Continue Plan of Care Continue skilled speech pathology to target swallowing safety. Treatment Duration: Dec 01, 2017 Frequency: 3 times per week Estimated Hrs Per Day: .5 hour per day Rehab Potential: Fair Safety Risks/Education Teaching Recipient: Patient Teaching Methods: Demonstration, Handout, Discussion Response to Teaching: Return Demonstration Education Topics Provided: Oropharyngeal Dysphagia Time Speech Therapy Time In: 09:00 Speech Therapy Time Out: 09:30 Total Billed Time: 30 Billed Treatment Time Jermaine CHARLENE ALEXIS FOX November 08, 2017 09:31
--- NOTE | 2017-11-08 11:50 | Occupational Ther Daily Note ---
OT Current Status-Daily Note Subjective Pt seen in room, up in bed, agreeable to OT but does not want to take a shower today. Agreed to sponge bath. No pain mentioned. Appearance Alert, cooperative Mental Status/Objective Functional [place] Measure 0=Not Assessed/NA 4=Minimal Assistance 1=Total Assistance 5=Supervision or Setup 2=Maximal Assistance 6=Modified [place] 3=Moderate Assistance 7=Complete [place] ADL-Treatment He was able to move from supine to sit EOB without assistance but struggling a little. Able to take shirt off and put clean one on, with setup, sitting EOB without assistance. Able to scoot out of pants or roll side to side to get them off/on hips but unable to get them off lower legs and braces. Help needed to put pants on over feet and pull them up to thighs. Unable to put slipper sock on L foot or take braces/cast boot off/on. Washed upper body, dave, arms, face and hands, bottom in bed but unable to do legs. Sponge bath. Pt got back into bed and braces/cast boot were removed. Legs washed by OT and skin checked. Nursing came in to change dressings on knees and also add padding on heels and a pressure area lateral R knee. Stockinette put on lower legs instead of ian wraps because he gets very hot and has no edema in LEs. Knee braces and cast boot reapplied and heels floated in bed. Pt left up in bed, all needs met. He seems very pleased with progress and said, "Don't count me out on anything." Functional [place] Measure 0=Not Assessed/NA 4=Minimal Assistance 1=Total Assistance 5=Supervision or Setup 2=Maximal Assistance 6=Modified [place] 3=Moderate Assistance 7=Complete IndependenceIRFPAI Quality Coding Scale 6 Independent with activity with or without an assistive device 5 Patient requires set up or clean up by helper. Patient completes activity by themselves 4 Supervision or touching assist (CGA). [place] provide cues , steadying assist 3 The helper provides less than half the effort to complete the activity 2 The helper provides more than half the effort to complete the activity 1 Dependent. The helper does all the effort to complete an activity 7 Patient refused to complete or attempt activity 9 The patient did not perform the activity before the current illness or injury 88 Not attempted due to Medical conditions or safety concerns Bathing (FIM): 3 (60%. Sponge bath) Bathing Location: L Arm, R Arm, Chest, Abdomen, Buttocks, Perineal Area Upper Body (FIM): 5 (setup) Lower Body Dressing (FIM): 3 Education OT Patient Education: Modified ADL techniques, Progress toward Goal/Update tx plan, Purpose of tx/functional activities Teaching Recipient: Patient Teaching Methods: Demonstration, Discussion Response to Teaching: Verbalize Understanding, Return Demonstration, Reinforcement Needed OT Short Term Goals Short Term Goals Time Frame: November 11, 2017 Bathing(FIM): 4 Toileting(FIM): 3 Toilet/Commode Transfer(FIM): 4 Additional Short Term Goals: 1-Demonstrate ADL Tasks, 2-Verbalize Understanding , 3-ImproveStrength/Douglas 1=Demonstrate adherence to instructed precautions during ADL tasks. 2=Patient will verbalize/demonstrate understanding of assistive devices/ modifications for ADL. 3=Patient will improve strength/tolerance for activity to enable patient to perform ADL's. OT Penitentiary Goals Penitentiary Goals Time Frame: Nov 25, 2017 Eating (FIM): 5 Eating (QC): 5 Groomin Oral Hygiene (QC): 6 Bathing(FIM): 5 Shower/Bathe Self (QC): 4 Upper Body Dressing(FIM): 5 Upper Body Dressing (QC): 5 Lower Body Dressing(FIM): 5 Lower Body Dressing (QC): 5 On/Off Footwear (QC): 5 Toileting(FIM): 5 Toileting Hygiene (QC): 4 Toilet/Commode Transfer(FIM): 5 Toilet/Commode Transfer (QC): 4 Shower Transfer(FIM): 5 Comprehension(FIM): 4 Expression (FIM): 5 Social Interaction(FIM): 5 Problem Solving(FIM): 4 Memory(FIM): 4 Additional Goals: 1-Demonstrate ADL Tasks, 2-Verbalize Understanding, 3- ImproveStrength/Douglas 1=Demonstrate adherence to instructed precautions during ADL tasks. 2=Patient will verbalize/demonstrate understanding of assistive devices/ modifications for ADL. 3=Patient will improve strength/tolerance for activity to enable patient to perform ADL's. OT Education/Plan Problem List/Assessment Pt would benefot from skilled OT to increase his independence in basic self care to allow him to safely return home Discharge Recommendations Plan/Recommendations: Continue POC Treatment Plan/Plan of Care Patient would benefit from OT for education, treatment and training to promote independence in ADL's, mobility, safety and/or upper extremity function for ADL' s. Plan of Care: ADL Retraining, Caregiver Training, Functional Mobility, Group Exercise/Act as Ind (education, exercise, funct activity, activity tolerance, socialization, memory), Orthotic Fitting/Training, UE Funct Exercise/Act, UE Neuromus Re-Ed/Coord, Visual/Perceptual Retrain, W/C Management Training Treatment Duration: Nov 25, 2017 Frequency: At least 5 of 7 days/Wk (IRF) Estimated Hrs Per Day: 1.5 hours per day (1.25 to 1.5) Agreement: Yes Rehab Potential: Fair Time/GCodes Start Time: 09:30 Stop Time: 10:30 Total Time Billed (hr/min): 60 Billed Treatment Time visit, 60 minutes ADL AIDEN GARDINER OT November 08, 2017 11:50
--- NOTE | 2017-11-08 13:26 | Physical Therapy Daily Note ---
PT Daily Note-Current Subjective Agrees to rx, feels tired, wants to EX in bed. Pain Numeric Pain Scale: 3 Location: Right Location Body Site: Hip Pain Description: Pressure Comment: with hip abduction exercise Mental Status Patient Orientation: Normal For Age Attachments: PEG Tube Transfers Functional [place] Measure 0=Not Assessed/NA 4=Minimal Assistance 1=Total Assistance 5=Supervision or Setup 2=Maximal Assistance 6=Modified [place] 3=Moderate Assistance 7=Complete IndependenceIRFPAI Quality Coding Scale 6 Independent with activity with or without an assistive device 5 Patient requires set up or clean up by helper. Patient completes activity by themselves 4 Supervision or touching assist (CGA). [place] provide cues , steadying assist 3 The helper provides less than half the effort to complete the activity 2 The helper provides more than half the effort to complete the activity 1 Dependent. The helper does all the effort to complete an activity 7 Patient refused to complete or attempt activity 9 The patient did not perform the activity before the current illness or injury 88 Not attempted due to Medical conditions or safety concerns rolling and scooting up in bed all SBA with min instruction Weight Bearing Right Lower Extremity: Right Non Weight Bearing Left Lower Extremity: Left Weight Bearing/Tolerated Exercises Supine Ex: Ankle pumps (left only), Quad Set, Rolling, Glut sets, Scooting (up in bed using elbows), Straight leg raise (assist on right), Hip abd/add Supine Reps: 10 (x2) Assessment Current Status: Good Progress tired this PM PT Short Term Goals Short Term Goals Time Frame: November 10, 2017 Gait (FIM): 1 Gait Distance Comment: 5' Gait Level of Assist: 4 Gait Assistive Device: FWW Wheelchair Distance: 100', 50' PT Aerologist Goals Aerologist Goals PT [facility] Goals Time Frame: Nov 24, 2017 Transfers (B,C,W/C) (FIM): 5 Sit to Lying (QC): 4 Lying-Sitting on Side/Bed(QC): 4 Sit to Stand (QC): 4 Rollin Roll Left to Right (QC): 4 Chair/Qlx-is-Ggpos Xfer(QC): 4 Car Transfer (QC): 4 Gait (FIM): 1 Distance: 20' Walk 10 feet (QC): 4 Walk 10ft-Uneven Surface(QC): 4 Gait Level of Assist: 4 Gait Assistive Device: FWW Wheelchair (FIM): 6 Distance: 150' Wheel 50 feet with 2 turns (QC: 6 PT Plan Treatment/Plan Treatment Plan: Continue Plan of Care Treatment Plan: Bed Mobility, Concurrent Therapy, Education, Functional Activity [place], Functional Strength, Group Therapy, Gait, Safety, Therapeutic Exercise, Transfers Treatment Duration: Nov 24, 2017 Frequency: At least 5 of 7 days/Wk (IRF) Estimated Hrs Per Day: 1.5 hours per day Patient and/or Family Agrees t: Yes Safety Risks/Education Patient Education: Transfer Techniques, Correct Positioning, Disease Process, Safety Issues Teaching Recipient: Patient, Primary Caregiver Teaching Methods: Discussion Response to Teaching: Verbalize Understanding, Return Demonstration, Reinforcement Needed Time/GCodes Time In: 1305 Time Out: 1325 Total Billed Treatment Time: 20 Total Billed Treatment 1,EX20 G Codes Necessary: MISHA Bell DATA CLERK November 08, 2017 13:26
--- NOTE | 2017-11-08 16:18 | Occupational Ther Daily Note ---
OT Current Status-Daily Note Subjective Pt seen in room, up in bed, agreeable to OT. No pain mentioned. Appearance Alert, cooperative Mental Status/Objective Functional [place] Measure 0=Not Assessed/NA 4=Minimal Assistance 1=Total Assistance 5=Supervision or Setup 2=Maximal Assistance 6=Modified [place] 3=Moderate Assistance 7=Complete [place] ADL-Treatment Functional [place] Measure 0=Not Assessed/NA 4=Minimal Assistance 1=Total Assistance 5=Supervision or Setup 2=Maximal Assistance 6=Modified [place] 3=Moderate Assistance 7=Complete IndependenceIRFPAI Quality Coding Scale 6 Independent with activity with or without an assistive device 5 Patient requires set up or clean up by helper. Patient completes activity by themselves 4 Supervision or touching assist (CGA). [place] provide cues , steadying assist 3 The helper provides less than half the effort to complete the activity 2 The helper provides more than half the effort to complete the activity 1 Dependent. The helper does all the effort to complete an activity 7 Patient refused to complete or attempt activity 9 The patient did not perform the activity before the current illness or injury 88 Not attempted due to Medical conditions or safety concerns Other Treatment Pt educ on two new stretches for R shoulder and elbow. Pt demonstrated exercises he recalled from yesterday as well. To stretch R shoulder to be able to more easily get shirt on over head and wash thoroughly under L arm. Pt reported he's very pleased with stockinette on legs and said he's been cooler in room. Pt left up in bed, all needs met. Education OT Patient Education: Exercise program, Purpose of tx/functional activities Teaching Recipient: Patient Teaching Methods: Discussion Response to Teaching: Verbalize Understanding, Return Demonstration OT Short Term Goals Short Term Goals Time Frame: November 11, 2017 Bathing(FIM): 4 Toileting(FIM): 3 Toilet/Commode Transfer(FIM): 4 Additional Short Term Goals: 1-Demonstrate ADL Tasks, 2-Verbalize Understanding , 3-ImproveStrength/[place] 1=Demonstrate adherence to instructed precautions during ADL tasks. 2=Patient will verbalize/demonstrate understanding of assistive devices/ modifications for ADL. 3=Patient will improve strength/tolerance for activity to enable patient to perform ADL's. OT [facility] Goals Exhauster Goals Time Frame: Nov 25, 2017 Eating (FIM): 5 Eating (QC): 5 Groomin Oral Hygiene (QC): 6 Bathing(FIM): 5 Shower/Bathe Self (QC): 4 Upper Body Dressing(FIM): 5 Upper Body Dressing (QC): 5 Lower Body Dressing(FIM): 5 Lower Body Dressing (QC): 5 On/Off Footwear (QC): 5 Toileting(FIM): 5 Toileting Hygiene (QC): 4 Toilet/Commode Transfer(FIM): 5 Toilet/Commode Transfer (QC): 4 Shower Transfer(FIM): 5 Comprehension(FIM): 4 Expression (FIM): 5 Social Interaction(FIM): 5 Problem Solving(FIM): 4 Memory(FIM): 4 Additional Goals: 1-Demonstrate ADL Tasks, 2-Verbalize Understanding, 3- ImproveStrength/Douglas 1=Demonstrate adherence to instructed precautions during ADL tasks. 2=Patient will verbalize/demonstrate understanding of assistive devices/ modifications for ADL. 3=Patient will improve strength/tolerance for activity to enable patient to perform ADL's. OT Education/Plan Problem List/Assessment Pt would benefot from skilled OT to increase his independence in basic self care to allow him to safely return home Discharge Recommendations Plan/Recommendations: Continue POC Treatment Plan/Plan of Care Patient would benefit from OT for education, treatment and training to promote independence in ADL's, mobility, safety and/or upper extremity function for ADL' s. Plan of Care: ADL Retraining, Caregiver Training, Functional Mobility, Group Exercise/Act as Ind (education, exercise, funct activity, activity tolerance, socialization, memory), Orthotic Fitting/Training, UE Funct Exercise/Act, UE Neuromus Re-Ed/Coord, Visual/Perceptual Retrain, W/C Management Training Treatment Duration: Nov 25, 2017 Frequency: At least 5 of 7 days/Wk (IRF) Estimated Hrs Per Day: 1.5 hours per day (1.25 to 1.5) Agreement: Yes Rehab Potential: Fair Time/GCodes Start Time: 13:45 Stop Time: 14:00 Total Time Billed (hr/min): 15 Billed Treatment Time visit, 15 minutes exercise AIDEN GARDINER OT November 08, 2017 16:18
[2017-11-08 18:21] VITALS: BP 107/65
[2017-11-08] MEDS: traZODone 50 MG (DESYREL) TAB PO SCH (20:59)
[2017-11-08] MEDS: QUEtiapine 25 MG (SEROquel) TAB IMMEDIATE RELEASE PEG SCH (20:59)
[2017-11-09] MEDS: ARTIFICAL TEARS 0.4 ML UNIT DOSE (REFRESH PLUS) OU SCH ×4 (00:16→18:23)
[2017-11-09] MEDS: NYSTATIN ORAL SUSP 5 ML UDC PO SCH ×4 (00:17→18:07)
[2017-11-09] MEDS: DOCUSATE SODIUM 10 MG/ML 10 ML UDC (COLACE) PEG SCH ×2 (08:32→21:13)
[2017-11-09] MEDS: ENOXAPARIN 30 MG/0.3 ML (LOVENOX) SYR SC SCH ×2 (08:32→20:10)
[2017-11-09] MEDS: lisINopril 10 MG (PRINIVIL) TABLET PEG SCH (08:32)
[2017-11-09] MEDS: oxyCODONE/APAP 5/325MG (PERCOCET 5) TABLET PEG PRN ×2 (08:34→14:33)
--- NOTE | 2017-11-09 08:55 | Physical Therapy Daily Note ---
PT Daily Note-Current Subjective Pt. in bed upon arrival and states he feels really sick and unsure he can participate today. Pt. c/o nausea, pain in right shoulder and chest area as well as dizziness. Pt. c/o pain in shoulder at 6/10. Nurse called to assess pt. and gives pain meds. Pain Numeric Pain Scale: 6 Location: Right Location Body Site: Shoulder Pain Description: Ache Mental Status Patient Orientation: Normal For Age Attachments: PEG Tube Transfers Functional [place] Measure 0=Not Assessed/NA 4=Minimal Assistance 1=Total Assistance 5=Supervision or Setup 2=Maximal Assistance 6=Modified [place] 3=Moderate Assistance 7=Complete IndependenceIRFPAI Quality Coding Scale 6 Independent with activity with or without an assistive device 5 Patient requires set up or clean up by helper. Patient completes activity by themselves 4 Supervision or touching assist (CGA). [place] provide cues , steadying assist 3 The helper provides less than half the effort to complete the activity 2 The helper provides more than half the effort to complete the activity 1 Dependent. The helper does all the effort to complete an activity 7 Patient refused to complete or attempt activity 9 The patient did not perform the activity before the current illness or injury 88 Not attempted due to Medical conditions or safety concerns Transfers (B, C, W/C) (FIM): 4 Scootin Rollin Supine to/from Sit: 4 Sit to/from Stand: 3 Bed to/from Chair: 3 pt. TRFd sup to side indep, side flat bed to sit required min to mod assist this date. Pt. requested up in lift recline chair this date. bed height was raised to perch pt. to near stance then mod assist and FWW used to SPT mod A to recliner. Weight Bearing Right Lower Extremity: Right Non Weight Bearing Left Lower Extremity: Left Weight Bearing/Tolerated Exercises Supine Ex: Ankle pumps, Quad Set, Rolling, Glut sets, Scooting, Straight leg raise, Hip abd/add Supine Reps: 15 Assessment Current Status: Fair Progress not feeling well today, see above description, supine BP: 116/73, HR 85, O2 sats 95% PT Short Term Goals Short Term Goals Time Frame: November 10, 2017 Gait (FIM): 1 Gait Distance Comment: 5' Gait Level of Assist: 4 Gait Assistive Device: FWW Wheelchair Distance: 100', 50' PT Ent Surgeon Goals Assisted Goals PT Assisted Goals Time Frame: Nov 24, 2017 Transfers (B,C,W/C) (FIM): 5 Sit to Lying (QC): 4 Lying-Sitting on Side/Bed(QC): 4 Sit to Stand (QC): 4 Rollin Roll Left to Right (QC): 4 Chair/Bgo-ml-Fpdhj Xfer(QC): 4 Car Transfer (QC): 4 Gait (FIM): 1 Distance: 20' Walk 10 feet (QC): 4 Walk 10ft-Uneven Surface(QC): 4 Gait Level of Assist: 4 Gait Assistive Device: FWW Wheelchair (FIM): 6 Distance: 150' Wheel 50 feet with 2 turns (QC: 6 PT Plan Treatment/Plan Treatment Plan: Continue Plan of Care Treatment Plan: Bed Mobility, Concurrent Therapy, Education, Functional Activity [place], Functional Strength, Group Therapy, Gait, Safety, Therapeutic Exercise, Transfers Treatment Duration: Nov 24, 2017 Frequency: At least 5 of 7 days/Wk (IRF) Estimated Hrs Per Day: 1.5 hours per day Patient and/or Family Agrees t: Yes Safety Risks/Education Patient Education: Transfer Techniques, Correct Positioning, Safety Issues Teaching Recipient: Patient Teaching Methods: Demonstration, Discussion Response to Teaching: Verbalize Understanding, Return Demonstration, Reinforcement Needed Time/GCodes Time In: 755 Time Out: 855 Total Billed Treatment Time: 60 Total Billed Treatment 1,EX20m,FA40m G Codes Necessary: MISHA Bell WEDDING PHOTOGRAPHER November 09, 2017 08:55
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
--- NOTE | 2017-11-09 10:09 | Speech Therapy Daily Note ---
Speech Daily Progress Note Subjective Date Seen by Provider: November 09, 2017 Time Seen by Provider: 09:00 The patient was seated upright in recliner upon entrance. The patient greeted the clinician appropriately and was agreeable to participation in the dysphagia treatment session. Dr. Pruitt was present during the session. The clinician requested an Otolaryngology consult to evaluate for possible vocal cord paralysis due to the patient's dysphonic vocal quality. Dr. Pruitt agreed to this and placed a consult. Objective Dysphagia Exercises: Base of tongue retraction, laryngeal closure, and pharyngeal wall contraction exercises were continued on this date. The patient demonstrated improved and increased accuracy and participation. Ten repetitions of each exercise were performed with mild clinician cueing. The patient remains extremely motivated for improvement. Assessment Assessment Current Status: Fair Progress Treatment Plan Continue Plan of Care Communication Comprehension: 4 Expression: 5 Social Cognition Social Interaction: 4 Problem Solvin Memory: 3 Speech Short Term Goals Short Term Goals Short Term Goals 1. The patient will attend to a task for a duration of five minutes with mild clinician verbal prompting. 2. The patient will identify safety concerns in a common environment with 80% accuracy and mild clinician verbal cueing. 3. The patient will recall and demonstrate intelligibility strategies with 80% accuracy and mild clinician cueing. 4. The patient will tolerate 10/10 puree and honey-thickened liquid bolus trials without signs/symptoms of aspiration or laryngeal penetration. Time Frame-STG: Two Weeks Speech Wet Inspector Optical Glass Goals Wet Inspector Optical Glass Goals 1. The patient will demonstrate improved cognitive linguistic skills for increased safety and function with ADL's. 2. The patient will tolerate trials of the least restrictive consistency without signs/symptoms of aspiration. Time Frame: Four Weeks Comprehension: 4 Expression: 5 Social Interaction: 5 Problem Solvin Memory: 4 Speech-Plan Treatment Plan Speech Therapy Treatment Plan: Continue Plan of Care Continue skilled speech pathology to target improved swallowing function. Treatment Duration: Dec 01, 2017 Frequency: 3 times per week Estimated Hrs Per Day: .5 hour per day Rehab Potential: Fair Safety Risks/Education Teaching Recipient: Patient Teaching Methods: Demonstration, Handout Response to Teaching: Return Demonstration Education Topics Provided: Dysphagia Exercises Time Speech Therapy Time In: 09:00 Speech Therapy Time Out: 09:30 Total Billed Time: 30 Billed Treatment Time Jermaine CHARLENE ALEXIS FOX November 09, 2017 10:09
--- NOTE | 2017-11-09 11:34 | Occupational Ther Daily Note ---
OT Current Status-Daily Note Subjective Pt seen in room, up in recliner, agreeable to OT. Pt reported that he "overdid it yesterday" and R shoulder hurt. Appearance Alert, cooperative Mental Status/Objective Functional [place] Measure 0=Not Assessed/NA 4=Minimal Assistance 1=Total Assistance 5=Supervision or Setup 2=Maximal Assistance 6=Modified [place] 3=Moderate Assistance 7=Complete [place] ADL-Treatment Pt was able to wash and dry arms, chest, abdomen, dave and bottom with sponge bath. Unable to do legs due to braces/cast boot. Able to doff/don t shirt and pull pants down to knees but help needed to get pants off and on braces. He could pull them back up and get them over hips. Needs help with slipper sock and unable to manage braces by himself. Pt reported that he has two steps into house and two steps in house so will need a ramp. Will also need drop arm bedside commode because w/c may not fit into bathroom and he is not able to walk that distance. Also talked about transfer tub bench but he may not be able to get legs into bathtub due to no knee flexion allowed. Pt left up in recliner , all needs met. Functional [place] Measure 0=Not Assessed/NA 4=Minimal Assistance 1=Total Assistance 5=Supervision or Setup 2=Maximal Assistance 6=Modified [place] 3=Moderate Assistance 7=Complete IndependenceIRFPAI Quality Coding Scale 6 Independent with activity with or without an assistive device 5 Patient requires set up or clean up by helper. Patient completes activity by themselves 4 Supervision or touching assist (CGA). [place] provide cues , steadying assist 3 The helper provides less than half the effort to complete the activity 2 The helper provides more than half the effort to complete the activity 1 Dependent. The helper does all the effort to complete an activity 7 Patient refused to complete or attempt activity 9 The patient did not perform the activity before the current illness or injury 88 Not attempted due to Medical conditions or safety concerns Bathing (FIM): 3 (60%. setup, sponge bath) Upper Body (FIM): 5 Lower Body Dressing (FIM): 3 Education OT Patient Education: Modified ADL techniques, Progress toward Goal/Update tx plan, Purpose of tx/functional activities, Transfer techniques, Use of adapted equipment Teaching Recipient: Patient Teaching Methods: Discussion Response to Teaching: Verbalize Understanding OT Short Term Goals Short Term Goals Time Frame: November 11, 2017 Bathing(FIM): 4 Toileting(FIM): 3 Toilet/Commode Transfer(FIM): 4 Additional Short Term Goals: 1-Demonstrate ADL Tasks, 2-Verbalize Understanding , 3-ImproveStrength/Douglas 1=Demonstrate adherence to instructed precautions during ADL tasks. 2=Patient will verbalize/demonstrate understanding of assistive devices/ modifications for ADL. 3=Patient will improve strength/tolerance for activity to enable patient to perform ADL's. OT E Commerce Architect Goals E Commerce Architect Goals Time Frame: Nov 25, 2017 Eating (FIM): 5 Eating (QC): 5 Groomin Oral Hygiene (QC): 6 Bathing(FIM): 5 Shower/Bathe Self (QC): 4 Upper Body Dressing(FIM): 5 Upper Body Dressing (QC): 5 Lower Body Dressing(FIM): 5 Lower Body Dressing (QC): 5 On/Off Footwear (QC): 5 Toileting(FIM): 5 Toileting Hygiene (QC): 4 Toilet/Commode Transfer(FIM): 5 Toilet/Commode Transfer (QC): 4 Shower Transfer(FIM): 5 Comprehension(FIM): 4 Expression (FIM): 5 Social Interaction(FIM): 5 Problem Solving(FIM): 4 Memory(FIM): 4 Additional Goals: 1-Demonstrate ADL Tasks, 2-Verbalize Understanding, 3- ImproveStrength/Douglas 1=Demonstrate adherence to instructed precautions during ADL tasks. 2=Patient will verbalize/demonstrate understanding of assistive devices/ modifications for ADL. 3=Patient will improve strength/tolerance for activity to enable patient to perform ADL's. OT Education/Plan Problem List/Assessment Pt would benefot from skilled OT to increase his independence in basic self care to allow him to safely return home Discharge Recommendations Plan/Recommendations: Continue POC Treatment Plan/Plan of Care Patient would benefit from OT for education, treatment and training to promote independence in ADL's, mobility, safety and/or upper extremity function for ADL' s. Plan of Care: ADL Retraining, Caregiver Training, Functional Mobility, Group Exercise/Act as Ind (education, exercise, funct activity, activity tolerance, socialization, memory), Orthotic Fitting/Training, UE Funct Exercise/Act, UE Neuromus Re-Ed/Coord, Visual/Perceptual Retrain, W/C Management Training Treatment Duration: Nov 25, 2017 Frequency: At least 5 of 7 days/Wk (IRF) Estimated Hrs Per Day: 1.5 hours per day (1.25 to 1.5) Agreement: Yes Rehab Potential: Fair Time/GCodes Start Time: 09:45 Stop Time: 10:30 Total Time Billed (hr/min): 45 Billed Treatment Time visit, 45 minutes ADL AIDEN GARDINER OT November 09, 2017 11:34
--- NOTE | 2017-11-09 14:41 | Therapy Group Daily Note ---
Therapy Daily Group Note Patient Education Topic Other List Below (memory loss and management strategies, giat deviances and assistive devices) Exercises LE Seated Exercise, UE Exercise Other/Notes Pt. participated in group PT OT session this date. Pt. required mod assist in out bed and came went via w/c. Pt. participated in exercises well as much as possible with LE limitations. Pts. were educated in gait, gait deviations and assistive devices and these were demonstrated as well. Pts. received review of ARU practices and expectations. Pts. enjoyed rolling large foam dice on the floor as part of introductions, then answering a fun conversation provoking question. Pts also participated in memory game activity matching images etc. Pt. to room with mod assist and in bed with call parrish at hand. Start Time: 13:00 Stop Time: 14:15 Total Billed Treatment Time: 75 Total Billed Treatment 1,GRP MISHA JORDAN STATE COMPTROLLER November 09, 2017 14:41
[2017-11-09] MEDS ORDERED: PHENYLEPHRINE 0.5% NASAL SPR (NEO-SYNEPHRINE) REG NR (14:45)
[2017-11-09] MEDS ORDERED: LIDOCAINE 4% INJ (XYLOCAINE) 5ML AMP TOP NR (14:45)
[2017-11-09 17:28] VITALS: BP 120/70
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
[2017-11-09] MEDS ORDERED: SALINE NASAL SPRAY (OCEAN) 45 ML BTL PRN (18:45)
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
[2017-11-09] MEDS ORDERED: CATHETER FLUSH 10 ML SYR IV PRN (20:45)
[2017-11-09] MEDS ORDERED: IOHEXOL 350 MG/ML 100 ML (OMNIPAQUE 350) VIAL IV ONE (20:45)
[2017-11-09] MEDS ORDERED: NS 250 ML (IVPB) BAG IV ONE (20:45)
[2017-11-09] MEDS: QUEtiapine 25 MG (SEROquel) TAB IMMEDIATE RELEASE PEG SCH (21:13)
[2017-11-09] MEDS: traZODone 50 MG (DESYREL) TAB PO SCH (21:13)
[2017-11-10] MEDS: ARTIFICAL TEARS 0.4 ML UNIT DOSE (REFRESH PLUS) OU SCH ×5 (00:18→20:52)
[2017-11-10] MEDS: NYSTATIN ORAL SUSP 5 ML UDC PO SCH ×6 (06:00→23:02)
[2017-11-10 06:02] VITALS: BP 121/79
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
[2017-11-10] MEDS: ENOXAPARIN 30 MG/0.3 ML (LOVENOX) SYR SC SCH ×2 (08:48→20:51)
[2017-11-10] MEDS: lisINopril 10 MG (PRINIVIL) TABLET PEG SCH (08:48)
[2017-11-10] MEDS: DOCUSATE SODIUM 10 MG/ML 10 ML UDC (COLACE) PEG SCH ×2 (08:48→20:51)
[2017-11-10] MEDS: oxyCODONE/APAP 5/325MG (PERCOCET 5) TABLET PEG PRN ×3 (08:48→18:12)
--- NOTE | 2017-11-10 08:58 | Physical Therapy Daily Note ---
PT Daily Note-Current Subjective Patient in bed pre tx, agrees to PT, has 8/10 pain, nurse notified. Appearance Patient in recliner post tx with legs elevated, has nurse call, phone, tray, all needs met. Mental Status Patient Orientation: Person, Place, Situation Attachments: PEG Tube cervical collar and bilateral leg braces Transfers Functional [place] Measure 0=Not Assessed/NA 4=Minimal Assistance 1=Total Assistance 5=Supervision or Setup 2=Maximal Assistance 6=Modified [place] 3=Moderate Assistance 7=Complete IndependenceIRFPAI Quality Coding Scale 6 Independent with activity with or without an assistive device 5 Patient requires set up or clean up by helper. Patient completes activity by themselves 4 Supervision or touching assist (CGA). [place] provide cues , steadying assist 3 The helper provides less than half the effort to complete the activity 2 The helper provides more than half the effort to complete the activity 1 Dependent. The helper does all the effort to complete an activity 7 Patient refused to complete or attempt activity 9 The patient did not perform the activity before the current illness or injury 88 Not attempted due to Medical conditions or safety concerns Transfers (B, C, W/C) (FIM): 3 Scootin Rollin Supine to/from Sit: 5 Sit to/from Stand: 3 Bed to/from Chair: 4 Patient is able to sit and slide over from chair to bed without the need of a sliding board Weight Bearing Right Lower Extremity: Right Non Weight Bearing Left Lower Extremity: Left Weight Bearing/Tolerated Wheelchair Training Does the Pt Use a Wheelchair?: Yes Wheelchair (FIM): 5 Distance: 150', 20' Wheelchair Level of Assist: 5 Type of Wheelchair: Manual Patient was not able to propel the wheelchair back to his room, he refused to do it because of pain in right arm. Exercises Supine Ex: Ankle pumps, Quad Set, Glut sets, Straight leg raise, Hip abd/add Supine Reps: 20 Patient also stood in the parallel bars x2 for about 1 min each time, maintaining his weight bearing status. Treatments bed mobility and transfers, functional strengthening, wheelchair mobility Assessment Current Status: Fair Progress improving transfers PT Short Term Goals Short Term Goals Time Frame: November 10, 2017 Gait (FIM): 1 Gait Distance Comment: 5' Gait Level of Assist: 4 Gait Assistive Device: FWW Wheelchair Distance: 100', 50' PT Director Family Goals Nursing Home Goals PT Nursing Home Goals Time Frame: Nov 24, 2017 Transfers (B,C,W/C) (FIM): 5 Sit to Lying (QC): 4 Lying-Sitting on Side/Bed(QC): 4 Sit to Stand (QC): 4 Rollin Roll Left to Right (QC): 4 Chair/Vky-iu-Qqhtk Xfer(QC): 4 Car Transfer (QC): 4 Gait (FIM): 1 Distance: 20' Walk 10 feet (QC): 4 Walk 10ft-Uneven Surface(QC): 4 Gait Level of Assist: 4 Gait Assistive Device: FWW Wheelchair (FIM): 6 Distance: 150' Wheel 50 feet with 2 turns (QC: 6 PT Plan Problem List Problem List: Activity Tolerance, Functional Strength, Safety, Balance, Gait, Transfer, Bed Mobility, ROM Treatment/Plan Treatment Plan: Continue Plan of Care Treatment Plan: Bed Mobility, Concurrent Therapy, Education, Functional Activity [place], Functional Strength, Group Therapy, Gait, Safety, Therapeutic Exercise, Transfers Treatment Duration: Nov 24, 2017 Frequency: At least 5 of 7 days/Wk (IRF) Estimated Hrs Per Day: 1.5 hours per day Patient and/or Family Agrees t: Yes Safety Risks/Education Patient Education: Transfer Techniques, Reviewed Precautions, Correct Positioning, W/C Management, Reviewed Don/Doff Brace, Disease Process, Safety Issues Teaching Recipient: Patient Teaching Methods: Demonstration, Discussion Response to Teaching: Reinforcement Needed Time/GCodes Time In: 800 Time Out: 900 Total Billed Treatment Time: 60 Total Billed Treatment 1 visit [facility] 15' EX 15' FA 30' FARIHA REYES PT November 10, 2017 08:58
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
--- NOTE | 2017-11-10 11:51 | Occupational Ther Daily Note ---
OT Current Status-Daily Note Subjective Pt seen in room, up in recliner, agreeable to OT. No pain mentioned. Very excited to eat "real food" today. Appearance Alert, cooperative Mental Status/Objective Functional [place] Measure 0=Not Assessed/NA 4=Minimal Assistance 1=Total Assistance 5=Supervision or Setup 2=Maximal Assistance 6=Modified [place] 3=Moderate Assistance 7=Complete [place] ADL-Treatment Pt stood with min assist from lift chair and transferred min assist to [facility], occasional cues. Transported to shower room and transferred to transfer tub bench with scooting but without sliding board, CGA. Legs elevated on shower chair and braces/cast boot removed. Cervical collar left on during shower. Pt washed and dried all parts, using grab bars, hand held shower, long handled sponge, with educ on how to use sponge. He also washed his hair and washed under cervical collar. After shower, nursing changed dressings, then stockinette reapplied and braces/cast boot put back on before transfer back to [facility], scooting with CGA. Pt doffed and donned t shirt with setup and needed mod assist for LE dressing, with help getting pants off/on over braces and putting slipper sock on L foot. He was able to weight shift to get pants up over hips. Pt transferred [facility] to bed with min assist and was able to get legs into bed himself. Cervical collar changed out for dry one but they are all big on him. Pt left up in bed, all needs met, marlene and Dr Higgins on the way. Functional [place] Measure 0=Not Assessed/NA 4=Minimal Assistance 1=Total Assistance 5=Supervision or Setup 2=Maximal Assistance 6=Modified [place] 3=Moderate Assistance 7=Complete IndependenceIRFPAI Quality Coding Scale 6 Independent with activity with or without an assistive device 5 Patient requires set up or clean up by helper. Patient completes activity by themselves 4 Supervision or touching assist (CGA). [place] provide cues , steadying assist 3 The helper provides less than half the effort to complete the activity 2 The helper provides more than half the effort to complete the activity 1 Dependent. The helper does all the effort to complete an activity 7 Patient refused to complete or attempt activity 9 The patient did not perform the activity before the current illness or injury 88 Not attempted due to Medical conditions or safety concerns Bathing (FIM): 5 Upper Body (FIM): 5 Lower Body Dressing (FIM): 3 Transfers (B, C, W/C) (FIM): 4 Shower Transfer(FIM): 4 Education OT Patient Education: Modified ADL techniques, Progress toward Goal/Update tx plan, Purpose of tx/functional activities, Transfer techniques, Use of adapted equipment Teaching Recipient: Patient Teaching Methods: Demonstration, Discussion Response to Teaching: Verbalize Understanding, Return Demonstration, Reinforcement Needed OT Short Term Goals Short Term Goals Time Frame: November 11, 2017 Bathing(FIM): 4 Toileting(FIM): 3 Toilet/Commode Transfer(FIM): 4 Additional Short Term Goals: 1-Demonstrate ADL Tasks, 2-Verbalize Understanding , 3-ImproveStrength/Douglas 1=Demonstrate adherence to instructed precautions during ADL tasks. 2=Patient will verbalize/demonstrate understanding of assistive devices/ modifications for ADL. 3=Patient will improve strength/tolerance for activity to enable patient to perform ADL's. OT Notch Grinder Goals Notch Grinder Goals Time Frame: Nov 25, 2017 Eating (FIM): 5 Eating (QC): 5 Groomin Oral Hygiene (QC): 6 Bathing(FIM): 5 Shower/Bathe Self (QC): 4 Upper Body Dressing(FIM): 5 Upper Body Dressing (QC): 5 Lower Body Dressing(FIM): 5 Lower Body Dressing (QC): 5 On/Off Footwear (QC): 5 Toileting(FIM): 5 Toileting Hygiene (QC): 4 Toilet/Commode Transfer(FIM): 5 Toilet/Commode Transfer (QC): 4 Shower Transfer(FIM): 5 Comprehension(FIM): 4 Expression (FIM): 5 Social Interaction(FIM): 5 Problem Solving(FIM): 4 Memory(FIM): 4 Additional Goals: 1-Demonstrate ADL Tasks, 2-Verbalize Understanding, 3- ImproveStrength/Douglas 1=Demonstrate adherence to instructed precautions during ADL tasks. 2=Patient will verbalize/demonstrate understanding of assistive devices/ modifications for ADL. 3=Patient will improve strength/tolerance for activity to enable patient to perform ADL's. OT Education/Plan Problem List/Assessment Pt would benefot from skilled OT to increase his independence in basic self care to allow him to safely return home Discharge Recommendations Plan/Recommendations: Continue POC Treatment Plan/Plan of Care Patient would benefit from OT for education, treatment and training to promote independence in ADL's, mobility, safety and/or upper extremity function for ADL' s. Plan of Care: ADL Retraining, Caregiver Training, Functional Mobility, Group Exercise/Act as Ind (education, exercise, funct activity, activity tolerance, socialization, memory), Orthotic Fitting/Training, UE Funct Exercise/Act, UE Neuromus Re-Ed/Coord, Visual/Perceptual Retrain, W/C Management Training Treatment Duration: Nov 25, 2017 Frequency: At least 5 of 7 days/Wk (IRF) Estimated Hrs Per Day: 1.5 hours per day (1.25 to 1.5) Agreement: Yes Rehab Potential: Fair Time/GCodes Start Time: 10:15 Stop Time: 11:35 Total Time Billed (hr/min): 80 Billed Treatment Time visit, 80 minutes ADL AIDEN GARDINER OT November 10, 2017 11:51
--- NOTE | 2017-11-10 14:32 | Physical Therapy Daily Note ---
PT Daily Note-Current Subjective Agreeable to PT. No complaints. Transfers Functional [place] Measure 0=Not Assessed/NA 4=Minimal Assistance 1=Total Assistance 5=Supervision or Setup 2=Maximal Assistance 6=Modified [place] 3=Moderate Assistance 7=Complete IndependenceIRFPAI Quality Coding Scale 6 Independent with activity with or without an assistive device 5 Patient requires set up or clean up by helper. Patient completes activity by themselves 4 Supervision or touching assist (CGA). [place] provide cues , steadying assist 3 The helper provides less than half the effort to complete the activity 2 The helper provides more than half the effort to complete the activity 1 Dependent. The helper does all the effort to complete an activity 7 Patient refused to complete or attempt activity 9 The patient did not perform the activity before the current illness or injury 88 Not attempted due to Medical conditions or safety concerns Supine to/from Sit: 5 (SBA for safety but did not need any assist. ) Chair/Kaj-xi-Rjwsb Xfer(QC): 4 (SBA to transfer to the left and CG-min assist to transfer to his right; Used his UE and slided bed to/from wheelchair. ) Weight Bearing Right Lower Extremity: Right Non Weight Bearing Left Lower Extremity: Left Weight Bearing/Tolerated Gait Training Does the Patient Walk?: No and Walking Goal NOT indicated Wheelchair Training Does the Pt Use a Wheelchair?: Yes Wheelchair (FIM): 2 Wheelchair Distance: 0=115-50 ft Distance: 50 ft x 2 Type of Wheelchair: Manual Limited by UE weakness and decreased functional activity tolerance. He did work on propelling his chair with turns and even on outdoor sidewalk surfaces. Treatments Wheelchair mobility and transfers; went outdoors; pt in bed post treatment with needs met. Assessment Current Status: Good Progress Transfers improving and decreased need for assist. Limited wheelchair mobility still. PT Short Term Goals Short Term Goals Time Frame: November 10, 2017 Gait (FIM): 1 Gait Distance Comment: 5' Gait Level of Assist: 4 Gait Assistive Device: FWW Wheelchair Distance: 150', 20' PT Correction Goals Correction Goals PT Glove Wrapper Goals Time Frame: Nov 24, 2017 Transfers (B,C,W/C) (FIM): 5 Sit to Lying (QC): 4 Lying-Sitting on Side/Bed(QC): 4 Sit to Stand (QC): 4 Rollin Roll Left to Right (QC): 4 Chair/Juh-yt-Gvfnt Xfer(QC): 4 Car Transfer (QC): 4 Gait (FIM): 1 Distance: 20' Walk 10 feet (QC): 4 Walk 10ft-Uneven Surface(QC): 4 Gait Level of Assist: 4 Gait Assistive Device: FWW Wheelchair (FIM): 6 Distance: 150' Wheel 50 feet with 2 turns (QC: 6 PT Plan Problem List Problem List: Activity Tolerance, Functional Strength, Safety, Balance, Transfer, Bed Mobility Treatment/Plan Treatment Plan: Continue Plan of Care Treatment Plan: Bed Mobility, Concurrent Therapy, Education, Functional Activity Douglas, Functional Strength, Group Therapy, Gait, Safety, Therapeutic Exercise, Transfers Treatment Duration: Nov 24, 2017 Frequency: At least 5 of 7 days/Wk (IRF) Estimated Hrs Per Day: 1.5 hours per day Patient and/or Family Agrees t: Yes Safety Risks/Education Patient Education: Transfer Techniques Teaching Recipient: Patient Teaching Methods: Demonstration, Discussion Response to Teaching: Reinforcement Needed Time/GCodes Time In: 1330 Time Out: 1403 Total Billed Treatment Time: 33 Total Billed Treatment visit FA 15 WC 18 MALI MATAMOROS PT November 10, 2017 14:31
[2017-11-10 18:22] VITALS: BP 112/67
--- NOTE | 2017-11-10 19:04 | Diagnostic Imaging Report ---
PROCEDURE: US carotid duplex, bilateral. TECHNIQUE: Multiple real-time grayscale images were obtained over the carotid arteries in various projections, bilaterally. Additional duplex Doppler and color Doppler images were also obtained. Parameters based on the consensus panel Blanca-Scale and Doppler ultrasound criteria published April 2003, Radiology, Volume 229. DOPPLER (peak systolic velocity M/S Right Left CCA 1.18 1.31 ICA Proximal 1.3 1.36 ICA Mid 1.25 1.27 ICA Distal 1.1 1.27 RATIO 1.1 1.04 ECA 1.42 1.22 VERT .6 .68 INDICATION: Carotid atherosclerosis. COMPARISON: None. FINDINGS: Mild atherosclerosis is seen in the carotid bulbs. Peak systolic velocities in the bilateral internal carotid arteries are slightly elevated indicating a 50-69% stenosis. This is likely closer to the 50th percentile. There is no occlusion. The flow in the vertebral arteries is antegrade. IMPRESSION: Mild bilateral carotid atherosclerosis with associated 50-69% stenosis in the bilateral internal carotid arteries. Dictated by: Dictated on workstation # [id number]
[2017-11-10] MEDS: QUEtiapine 25 MG (SEROquel) TAB IMMEDIATE RELEASE PEG SCH (20:51)
[2017-11-10] MEDS: traZODone 50 MG (DESYREL) TAB PO SCH (20:51)
[2017-11-11] MEDS: ARTIFICAL TEARS 0.4 ML UNIT DOSE (REFRESH PLUS) OU SCH ×4 (05:57→23:13)
[2017-11-11] MEDS: oxyCODONE/APAP 5/325MG (PERCOCET 5) TABLET PEG PRN ×3 (05:57→18:01)
[2017-11-11 06:00] VITALS: BP 128/73
[2017-11-11] MEDS: NYSTATIN ORAL SUSP 5 ML UDC PO SCH ×4 (06:05→23:12)
[2017-11-11 06:27] LABS: ALBUMIN 2.9 GM/DL (3.2-4.5); BILIRUBIN,DIRECT 0.3 MG/DL (0.0-0.3); BILIRUBIN,INDIRECT 0.3 MG/DL; BILIRUBIN,TOTAL 0.6 MG/DL (0.1-1.0); TOTAL PROTEIN 7.4 GM/DL (6.4-8.2)
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
--- NOTE | 2017-11-11 08:54 | Physical Therapy Daily Note ---
PT Daily Note-Current Subjective Patient in bed pre tx, agrees to PT, no complaints of pain. Appearance Patient in recliner post tx with nurse call, phone, tray, all needs met. Mental Status Patient Orientation: Person, Place, Situation Attachments: PEG Tube cervical collar, leg braces Transfers Functional [place] Measure 0=Not Assessed/NA 4=Minimal Assistance 1=Total Assistance 5=Supervision or Setup 2=Maximal Assistance 6=Modified [place] 3=Moderate Assistance 7=Complete IndependenceIRFPAI Quality Coding Scale 6 Independent with activity with or without an assistive device 5 Patient requires set up or clean up by helper. Patient completes activity by themselves 4 Supervision or touching assist (CGA). [place] provide cues , steadying assist 3 The helper provides less than half the effort to complete the activity 2 The helper provides more than half the effort to complete the activity 1 Dependent. The helper does all the effort to complete an activity 7 Patient refused to complete or attempt activity 9 The patient did not perform the activity before the current illness or injury 88 Not attempted due to Medical conditions or safety concerns Transfers (B, C, W/C) (FIM): 3 Scootin Rollin Supine to/from Sit: 4 Sit to/from Stand: 3 Bed to/from Chair: 4 Patient needs min assist for supine to sit, mod assist for sit to stand, CGA for transfers, patient slides from wheelchair to bed without a sliding board Weight Bearing Right Lower Extremity: Right Non Weight Bearing Left Lower Extremity: Left Weight Bearing/Tolerated Gait Training Gait (FIM): 1 Distance: 20'x4 Gait Level of Assist: 4 Gait Persons Needed: 1 Gait Assistive Device: FWW Wheelchair follow. Patient ambulates with flexed hips bilaterally. Maintains weight bearing status on right leg. Wheelchair Training Does the Pt Use a Wheelchair?: Yes Wheelchair (FIM): 4 Distance: 150'x2 Wheelchair Level of Assist: 4 Type of Wheelchair: Manual Treatments bed mobility and transfers, ambulation, wheelchair mobility Assessment Current Status: Fair Progress patient ambulated for the first time today, he needs a lot of assist to stand but once he is up he ambulates very well PT Short Term Goals Short Term Goals Time Frame: November 10, 2017 Gait (FIM): 1 Gait Distance Comment: 5' Gait Level of Assist: 4 Gait Assistive Device: FWW Wheelchair Distance: 50 ft x 2 PT Tub Chucker Goals Tub Chucker Goals PT Tub Chucker Goals Time Frame: Nov 24, 2017 Transfers (B,C,W/C) (FIM): 5 Sit to Lying (QC): 4 Lying-Sitting on Side/Bed(QC): 4 Sit to Stand (QC): 4 Rollin Roll Left to Right (QC): 4 Chair/Qns-mx-Xgxvc Xfer(QC): 4 Car Transfer (QC): 4 Gait (FIM): 1 Distance: 20' Walk 10 feet (QC): 4 Walk 10ft-Uneven Surface(QC): 4 Gait Level of Assist: 4 Gait Assistive Device: FWW Wheelchair (FIM): 6 Distance: 150' Wheel 50 feet with 2 turns (QC: 6 PT Plan Problem List Problem List: Activity Tolerance, Functional Strength, Safety, Balance, Gait, Transfer, Bed Mobility, ROM Treatment/Plan Treatment Plan: Continue Plan of Care Treatment Plan: Bed Mobility, Concurrent Therapy, Education, Functional Activity Douglas, Functional Strength, Group Therapy, Gait, Safety, Therapeutic Exercise, Transfers Treatment Duration: Nov 24, 2017 Frequency: At least 5 of 7 days/Wk (IRF) Estimated Hrs Per Day: 1.5 hours per day Patient and/or Family Agrees t: Yes Safety Risks/Education Patient Education: Gait Training, Transfer Techniques, Correct Positioning, W/ C Management, Safety Issues Teaching Recipient: Patient Teaching Methods: Demonstration, Discussion Response to Teaching: Reinforcement Needed Time/GCodes Time In: 0800 Time Out: 0900 Total Billed Treatment Time: 60 Total Billed Treatment 1 visit GT 30' FA 10' WCH 20' FARIHA REYES PT November 11, 2017 08:54
[2017-11-11] MEDS: DOCUSATE SODIUM 10 MG/ML 10 ML UDC (COLACE) PEG SCH ×2 (09:22→20:48)
[2017-11-11] MEDS: ENOXAPARIN 30 MG/0.3 ML (LOVENOX) SYR SC SCH ×2 (09:22→20:28)
[2017-11-11] MEDS: lisINopril 10 MG (PRINIVIL) TABLET PEG SCH (09:22)
--- NOTE | 2017-11-11 10:09 | Speech Therapy Daily Note ---
Speech Daily Progress Note Subjective Date Seen by Provider: November 11, 2017 Time Seen by Provider: 09:00 The patient was seated upright in recliner upon entrance. The patient greeted the clinician appropriately and was agreeable to participation in the dysphagia treatment session. The patient stated he consumed breakfast of pureed eggs, chocolate milk, and applesauce without signs/symptoms of aspiration. Objective Dysphagia Exercises: Base of tongue retraction, laryngeal closure, and pharyngeal wall contraction exercises were continued on this date. The patient demonstrated improved and increased accuracy and participation. Ten repetitions of each exercise were performed with mild clinician cueing. The patient was observed sipping water via toothette throughout the session. No signs/symptoms of aspiration were demonstrated. The patient's swallowing strategies were extensively reviewed throughout the session. The patient remains extremely motivated for improvement. Assessment Assessment Current Status: Good Progress Treatment Plan Continue Plan of Care Communication Comprehension: 4 Expression: 5 Social Cognition Social Interaction: 4 Problem Solvin Memory: 3 Speech Short Term Goals Short Term Goals Short Term Goals 1. The patient will attend to a task for a duration of five minutes with mild clinician verbal prompting. 2. The patient will identify safety concerns in a common environment with 80% accuracy and mild clinician verbal cueing. 3. The patient will recall and demonstrate intelligibility strategies with 80% accuracy and mild clinician cueing. 4. The patient will tolerate 10/10 puree and honey-thickened liquid bolus trials without signs/symptoms of aspiration or laryngeal penetration. Time Frame-STG: Two Weeks Speech Helmet Hat Sweatband Puncher Goals Helmet Hat Sweatband Puncher Goals 1. The patient will demonstrate improved cognitive linguistic skills for increased safety and function with ADL's. 2. The patient will tolerate trials of the least restrictive consistency without signs/symptoms of aspiration. Time Frame: Four Weeks Comprehension: 4 Expression: 5 Social Interaction: 5 Problem Solvin Memory: 4 Speech-Plan Treatment Plan Speech Therapy Treatment Plan: Continue Plan of Care Continue skilled speech services for improved swallowing safety and strength. Treatment Duration: Dec 01, 2017 Frequency: 3 times per week Estimated Hrs Per Day: .5 hour per day Rehab Potential: Fair Safety Risks/Education Teaching Recipient: Patient Teaching Methods: Demonstration, Handout, Discussion Response to Teaching: Verbalize Understanding Education Topics Provided: Swallowing Strategies, Dysphagia Exercises Time Speech Therapy Time In: 09:00 Speech Therapy Time Out: 09:30 Total Billed Time: 30 Billed Treatment Time JermaineCHARLENE ELIZABETH ST November 11, 2017 10:09
--- NOTE | 2017-11-11 11:16 | Occupational Ther Daily Note ---
OT Current Status-Daily Note Subjective Pt alert, sitting in recliner. Pt agrees to therapy. No c/o pain at this time. Mental Status/Objective Patient Orientation: Person, Place, Time, Situation Functional [place] Measure 0=Not Assessed/NA 4=Minimal Assistance 1=Total Assistance 5=Supervision or Setup 2=Maximal Assistance 6=Modified [place] 3=Moderate Assistance 7=Complete [place] ADL-Treatment Pt declined shower today. Sponge bath taken sitting in recliner. After set up , pt able to complete upper body, dave area and buttocks. Pt doffed/donned shirt by self after set up. Pt hiked pants over hips to doff/don. Assist to don/doff over feet for lower body dressing. Pt then declined oral care. Pt refused to go out of room to complete rest of therapy stating he just wanted to get back into bed and take a nap and that his R shldr hurt (7-8/10 pain). Pt did agree to complete UE exercises as he was in bed. CGA for pt to transfer from recliner to bed and SBA for sit to supine. Reported pain to nrsg and nrsg brought pain meds. Functional [place] Measure 0=Not Assessed/NA 4=Minimal Assistance 1=Total Assistance 5=Supervision or Setup 2=Maximal Assistance 6=Modified [place] 3=Moderate Assistance 7=Complete IndependenceIRFPAI Quality Coding Scale 6 Independent with activity with or without an assistive device 5 Patient requires set up or clean up by helper. Patient completes activity by themselves 4 Supervision or touching assist (CGA). [place] provide cues , steadying assist 3 The helper provides less than half the effort to complete the activity 2 The helper provides more than half the effort to complete the activity 1 Dependent. The helper does all the effort to complete an activity 7 Patient refused to complete or attempt activity 9 The patient did not perform the activity before the current illness or injury 88 Not attempted due to Medical conditions or safety concerns Upper Body (FIM): 5 Upper Body Dressing (QC): 5 Lower Body Dressing (FIM): 2 Lower Body Dressing (QC): 2 On/Off Footwear (QC): 1 Other Treatment Pt c/o pain in R shldr, no resistance with R UE exercises. Pt was able to lift and hold R UE to 90*. Resistive clothes pins completed with each arm, no c/o pain. 1# wt attached to L wrist during UE activity to promote strength, activity tolerance for daily functional tasks. Fine motor activity complete to work on dexterity, pinch and bindery supervisor strength for dressing. After therapy, pt lying in bed with call light/phone in reach. All needs met in room. OT Short Term Goals Short Term Goals Time Frame: November 11, 2017 Bathing(FIM): 4 Toileting(FIM): 3 Toilet/Commode Transfer(FIM): 4 Additional Short Term Goals: 1-Demonstrate ADL Tasks, 2-Verbalize Understanding , 3-ImproveStrength/Douglas 1=Demonstrate adherence to instructed precautions during ADL tasks. 2=Patient will verbalize/demonstrate understanding of assistive devices/ modifications for ADL. 3=Patient will improve strength/tolerance for activity to enable patient to perform ADL's. OT Shelter Goals Electrophysiologist Goals Time Frame: Nov 25, 2017 Eating (FIM): 5 Eating (QC): 5 Groomin Oral Hygiene (QC): 6 Bathing(FIM): 5 Shower/Bathe Self (QC): 4 Upper Body Dressing(FIM): 5 Upper Body Dressing (QC): 5 Lower Body Dressing(FIM): 5 Lower Body Dressing (QC): 5 On/Off Footwear (QC): 5 Toileting(FIM): 5 Toileting Hygiene (QC): 4 Toilet/Commode Transfer(FIM): 5 Toilet/Commode Transfer (QC): 4 Shower Transfer(FIM): 5 Comprehension(FIM): 4 Expression (FIM): 5 Social Interaction(FIM): 5 Problem Solving(FIM): 4 Memory(FIM): 4 Additional Goals: 1-Demonstrate ADL Tasks, 2-Verbalize Understanding, 3- ImproveStrength/Douglas 1=Demonstrate adherence to instructed precautions during ADL tasks. 2=Patient will verbalize/demonstrate understanding of assistive devices/ modifications for ADL. 3=Patient will improve strength/tolerance for activity to enable patient to perform ADL's. OT Education/Plan Problem List/Assessment Pt would benefot from skilled OT to increase his independence in basic self care to allow him to safely return home Discharge Recommendations Plan/Recommendations: Continue POC Treatment Plan/Plan of Care Patient would benefit from OT for education, treatment and training to promote independence in ADL's, mobility, safety and/or upper extremity function for ADL' s. Plan of Care: ADL Retraining, Caregiver Training, Functional Mobility, Group Exercise/Act as Ind (education, exercise, funct activity, activity tolerance, socialization, memory), Orthotic Fitting/Training, UE Funct Exercise/Act, UE Neuromus Re-Ed/Coord, Visual/Perceptual Retrain, W/C Management Training Treatment Duration: Nov 25, 2017 Frequency: At least 5 of 7 days/Wk (IRF) Estimated Hrs Per Day: 1.5 hours per day (1.25 to 1.5) Agreement: Yes Rehab Potential: Fair Time/GCodes Start Time: 09:50 Stop Time: 11:05 Total Time Billed (hr/min): 75 Billed Treatment Time 1 visit-ADL 3 (50 min) EX 2 (25 min) MALI BUITRAGO November 11, 2017 11:16
--- NOTE | 2017-11-11 14:11 | Physical Therapy Daily Note ---
PT Daily Note-Current Subjective Patient in bed pre tx, agrees to PT, no complaints of pain. Patient very drowsy , agrees to exercises in bed. Appearance Patient in bed post tx with nurse call, phone, tray, all needs met. Mental Status Patient Orientation: Person, Place, Situation Attachments: PEG Tube cervical collar and leg braces Transfers Functional [place] Measure 0=Not Assessed/NA 4=Minimal Assistance 1=Total Assistance 5=Supervision or Setup 2=Maximal Assistance 6=Modified [place] 3=Moderate Assistance 7=Complete IndependenceIRFPAI Quality Coding Scale 6 Independent with activity with or without an assistive device 5 Patient requires set up or clean up by helper. Patient completes activity by themselves 4 Supervision or touching assist (CGA). [place] provide cues , steadying assist 3 The helper provides less than half the effort to complete the activity 2 The helper provides more than half the effort to complete the activity 1 Dependent. The helper does all the effort to complete an activity 7 Patient refused to complete or attempt activity 9 The patient did not perform the activity before the current illness or injury 88 Not attempted due to Medical conditions or safety concerns Weight Bearing Right Lower Extremity: Right Non Weight Bearing Left Lower Extremity: Left Weight Bearing/Tolerated Exercises Supine Ex: Ankle pumps, Quad Set, Glut sets, Straight leg raise, Hip abd/add Supine Reps: 20 Treatments ROM/functional strengthening Assessment Current Status: Fair Progress PT Short Term Goals Short Term Goals Time Frame: November 10, 2017 Gait (FIM): 1 Gait Distance Comment: 5' Gait Level of Assist: 4 Gait Assistive Device: FWW Wheelchair Distance: 150'x2 PT Engineering Supplies Sales Goals Jail Goals PT Jail Goals Time Frame: Nov 24, 2017 Transfers (B,C,W/C) (FIM): 5 Sit to Lying (QC): 4 Lying-Sitting on Side/Bed(QC): 4 Sit to Stand (QC): 4 Rollin Roll Left to Right (QC): 4 Chair/Mgi-nv-Cbitu Xfer(QC): 4 Car Transfer (QC): 4 Gait (FIM): 1 Distance: 20' Walk 10 feet (QC): 4 Walk 10ft-Uneven Surface(QC): 4 Gait Level of Assist: 4 Gait Assistive Device: FWW Wheelchair (FIM): 6 Distance: 150' Wheel 50 feet with 2 turns (QC: 6 PT Plan Problem List Problem List: Activity Tolerance, Functional Strength, Safety, Balance, Gait, Transfer, Bed Mobility, ROM Treatment/Plan Treatment Plan: Continue Plan of Care Treatment Plan: Bed Mobility, Concurrent Therapy, Education, Functional Activity [place], Functional Strength, Group Therapy, Gait, Safety, Therapeutic Exercise, Transfers Treatment Duration: Nov 24, 2017 Frequency: At least 5 of 7 days/Wk (IRF) Estimated Hrs Per Day: 1.5 hours per day Patient and/or Family Agrees t: Yes Safety Risks/Education Patient Education: Correct Positioning, Safety Issues Teaching Recipient: Patient Teaching Methods: Demonstration, Discussion Response to Teaching: Reinforcement Needed Time/GCodes Time In: 1315 Time Out: 1330 Total Billed Treatment Time: 15 Total Billed Treatment 1 visit EX 15' FARIHA REYES PT November 11, 2017 14:10
[2017-11-11 17:10] VITALS: BP 98/61
[2017-11-11] MEDS: traZODone 50 MG (DESYREL) TAB PO SCH (20:48)
[2017-11-11] MEDS: QUEtiapine 25 MG (SEROquel) TAB IMMEDIATE RELEASE PEG SCH (20:48)
[2017-11-12 06:00] VITALS: BP 123/77
[2017-11-12] MEDS: NYSTATIN ORAL SUSP 5 ML UDC PO SCH ×5 (06:00→23:37)
[2017-11-12] MEDS: ARTIFICAL TEARS 0.4 ML UNIT DOSE (REFRESH PLUS) OU SCH ×4 (06:00→23:37)
[2017-11-12] MEDS: oxyCODONE/APAP 5/325MG (PERCOCET 5) TABLET PEG PRN ×3 (07:08→17:40)
[2017-11-12] MEDS: ENOXAPARIN 30 MG/0.3 ML (LOVENOX) SYR SC SCH ×2 (08:38→19:40)
[2017-11-12] MEDS: lisINopril 10 MG (PRINIVIL) TABLET PEG SCH (08:38)
[2017-11-12] MEDS: DOCUSATE SODIUM 10 MG/ML 10 ML UDC (COLACE) PEG SCH ×2 (08:38→20:12)
--- NOTE | 2017-11-12 10:36 | Physical Therapy Daily Note ---
PT Daily Note-Current Subjective Pt curses and reports he's not getting up. Pt convinced that it is in his best interest to get out of bed. He reluctantly agrees. Transfers Functional [place] Measure 0=Not Assessed/NA 4=Minimal Assistance 1=Total Assistance 5=Supervision or Setup 2=Maximal Assistance 6=Modified [place] 3=Moderate Assistance 7=Complete IndependenceIRFPAI Quality Coding Scale 6 Independent with activity with or without an assistive device 5 Patient requires set up or clean up by helper. Patient completes activity by themselves 4 Supervision or touching assist (CGA). [place] provide cues , steadying assist 3 The helper provides less than half the effort to complete the activity 2 The helper provides more than half the effort to complete the activity 1 Dependent. The helper does all the effort to complete an activity 7 Patient refused to complete or attempt activity 9 The patient did not perform the activity before the current illness or injury 88 Not attempted due to Medical conditions or safety concerns Transfers (B, C, W/C) (FIM): 4 assist to come to sitting from supine Weight Bearing Right Lower Extremity: Right Non Weight Bearing Left Lower Extremity: Left Weight Bearing/Tolerated Gait Training Gait Assistive Device: FWW 5 steps with FWW and NWB on the (R). Needs Max Assist to come to standing at walker. Unable to continue gait training due to 10/10 ankle pain. Exercises Supine Ex: Ankle pumps, Quad Set, Glut sets, Straight leg raise, Hip abd/add Supine Reps: 10 isometric hip ext (B) x 10 PT Short Term Goals Short Term Goals Time Frame: November 10, 2017 Gait (FIM): 1 Gait Distance Comment: 5' Gait Level of Assist: 4 Gait Assistive Device: FWW Wheelchair Distance: 150'x2 PT Homemaking Rehabilitation Consultant Goals Homemaking Rehabilitation Consultant Goals PT Senior Living Goals Time Frame: Nov 24, 2017 Transfers (B,C,W/C) (FIM): 5 Sit to Lying (QC): 4 Lying-Sitting on Side/Bed(QC): 4 Sit to Stand (QC): 4 Rollin Roll Left to Right (QC): 4 Chair/Qac-uh-Hlwbw Xfer(QC): 4 Car Transfer (QC): 4 Gait (FIM): 1 Distance: 20' Walk 10 feet (QC): 4 Walk 10ft-Uneven Surface(QC): 4 Gait Level of Assist: 4 Gait Assistive Device: FWW Wheelchair (FIM): 6 Distance: 150' Wheel 50 feet with 2 turns (QC: 6 PT Plan Treatment/Plan Treatment Plan: Continue Plan of Care Treatment Plan: Bed Mobility, Concurrent Therapy, Education, Functional Activity [place], Functional Strength, Group Therapy, Gait, Safety, Therapeutic Exercise, Transfers Treatment Duration: Nov 24, 2017 Frequency: At least 5 of 7 days/Wk (IRF) Estimated Hrs Per Day: 1.5 hours per day Patient and/or Family Agrees t: Yes Time/GCodes Time In: 840 Time Out: 905 Total Billed Treatment Time: 25 Total Billed Treatment visit, exercise 10, FA 15 min MAITE ACOSTA PT November 12, 2017 10:36
[2017-11-12 18:36] VITALS: BP 138/80
[2017-11-12] MEDS: traZODone 50 MG (DESYREL) TAB PO SCH (20:11)
[2017-11-12] MEDS: QUEtiapine 25 MG (SEROquel) TAB IMMEDIATE RELEASE PEG SCH (20:12)
[2017-11-13 05:33] VITALS: BP 131/85
[2017-11-13] MEDS: ARTIFICAL TEARS 0.4 ML UNIT DOSE (REFRESH PLUS) OU SCH ×4 (05:41→23:09)
[2017-11-13] MEDS: NYSTATIN ORAL SUSP 5 ML UDC PO SCH ×4 (05:41→23:09)
[2017-11-13] MEDS: oxyCODONE/APAP 5/325MG (PERCOCET 5) TABLET PEG PRN ×4 (08:12→21:51)
[2017-11-13] MEDS: lisINopril 10 MG (PRINIVIL) TABLET PEG SCH (08:12)
[2017-11-13] MEDS: ENOXAPARIN 30 MG/0.3 ML (LOVENOX) SYR SC SCH ×2 (08:12→20:15)
[2017-11-13] MEDS: DOCUSATE SODIUM 10 MG/ML 10 ML UDC (COLACE) PEG SCH ×2 (08:13→20:15)
--- NOTE | 2017-11-13 12:51 | Progress Note-Hospitalist ---
Subjective HPI/CC On Admission Date Seen by Provider: November 13, 2017 Time Seen by Provider: 11:30 Subjective/Events-last exam Patient doing fairly well Pain is somewhat controlled Denies any chest pain or shortness of breath Trying to use I-S Debility is severe Review of Systems General: Fatigue, Malaise Musculoskeletal: leg pain Objective Exam Vital Signs Vital Signs Date Time Temp Pulse Resp B/P (MAP) Pulse Ox O2 Delivery O2 Flow Rate FiO2 11/13/17 05:33 98.9 94 16 131/85 (100) 96 Room Air Capillary Refill : Less Than 3 Seconds General Appearance: No Apparent Distress, WD/WN, Chronically ill Respiratory: Lungs Clear, Normal Breath Sounds, Decreased Breath Sounds Cardiovascular: Regular Rate, Rhythm, No Edema Back: Decreased Range of Motion Extremity: Other (decreased ROM) Results/Procedures Lab Patient resulted labs reviewed. Assessment/Plan Assessment and Plan Assess & Plan/Chief Complaint Pelvic fractures and leg fractures Elevated LFTs Plan: Pain control Rehab Diagnosis/Problems Diagnosis/Problems (1) Frailty Status: Acute (2) Multiple trauma Status: Acute (3) Pelvic fracture Status: Acute (4) Elevated liver enzymes Status: Acute Clinical Quality Measures DVT/VTE Risk/Contraindication: Risk Factor Score Per Nursin RFS Level Per Nursing on Admit: 4+=Very High APARNA CAMERON DO November 13, 2017 12:51
[2017-11-13] MEDS ORDERED: RT-ALBUTEROL SULF 2.5 MG/3 ML PRE-MIX VIAL INH PRN (15:30)
[2017-11-13] MEDS: SALIVA STIMULANT MOUTH SPRAY (BIOTENE) 1.5 OZ MM PRN (17:18)
[2017-11-13 17:57] VITALS: BP 119/64
[2017-11-13] MEDS: traZODone 50 MG (DESYREL) TAB PO SCH (20:15)
[2017-11-13] MEDS: QUEtiapine 25 MG (SEROquel) TAB IMMEDIATE RELEASE PEG SCH (20:15)
[2017-11-14 05:04] VITALS: BP 106/69
[2017-11-14] MEDS: NYSTATIN ORAL SUSP 5 ML UDC PO SCH ×2 (06:13→11:27)
[2017-11-14] MEDS: ARTIFICAL TEARS 0.4 ML UNIT DOSE (REFRESH PLUS) OU SCH ×4 (06:13→21:20)
--- NOTE | 2017-11-14 06:36 | Progress Note-Standard ---
Standard Progress Note Progress Notes/Assess & Plan Date Seen by Provider: November 14, 2017 Time Seen by Provider: 06:30 Progress/Assessment & Plan ENT-Zonia past to see patient patient sleeping-didnt wake up according to nurses taking diet well voice soft but understandable not sure when going home will need follow up as outpatient to relook at cords in about 2-3 wqeeks- that can be done as an outpatient in [place] or closer to his home-would need to make sure in network here will follw up later this week to recheck on him if he has not been discharged yet BLADE COLLINS MD November 14, 2017 6:36 am
[2017-11-14] MEDS: ENOXAPARIN 30 MG/0.3 ML (LOVENOX) SYR SC SCH ×2 (08:31→19:38)
[2017-11-14] MEDS: oxyCODONE/APAP 5/325MG (PERCOCET 5) TABLET PEG PRN ×3 (08:31→19:37)
[2017-11-14] MEDS: lisINopril 10 MG (PRINIVIL) TABLET PEG SCH (08:31)
[2017-11-14] MEDS: DOCUSATE SODIUM 10 MG/ML 10 ML UDC (COLACE) PEG SCH ×2 (08:32→21:18)
--- NOTE | 2017-11-14 08:57 | Physical Therapy Daily Note ---
PT Daily Note-Current Subjective Patient in bed pre tx, agrees reluctantly to PT. Patient has pain of 10/10 in his right ankle. Nursing notified and he got pain meds during treatment. Patient no longer has to wear a cervical collar. Appearance Patient in recliner post tx with nurse call, phone, tray, all needs met. Mental Status Patient Orientation: Person, Place, Situation Attachments: PEG Tube bilateral leg braces Transfers Functional [place] Measure 0=Not Assessed/NA 4=Minimal Assistance 1=Total Assistance 5=Supervision or Setup 2=Maximal Assistance 6=Modified [place] 3=Moderate Assistance 7=Complete IndependenceIRFPAI Quality Coding Scale 6 Independent with activity with or without an assistive device 5 Patient requires set up or clean up by helper. Patient completes activity by themselves 4 Supervision or touching assist (CGA). [place] provide cues , steadying assist 3 The helper provides less than half the effort to complete the activity 2 The helper provides more than half the effort to complete the activity 1 Dependent. The helper does all the effort to complete an activity 7 Patient refused to complete or attempt activity 9 The patient did not perform the activity before the current illness or injury 88 Not attempted due to Medical conditions or safety concerns Transfers (B, C, W/C) (FIM): 5 Scootin Rollin Supine to/from Sit: 5 Bed to/from Chair: 5 Patient refused to stand due to his right ankle pain. He performs a sliding seated transfer without a sliding board. Weight Bearing Right Lower Extremity: Right Non Weight Bearing Left Lower Extremity: Left Weight Bearing/Tolerated Wheelchair Training Does the Pt Use a Wheelchair?: Yes Wheelchair (FIM): 5 Distance: 150'x2 Wheelchair Level of Assist: 5 Type of Wheelchair: Manual Exercises Supine Ex: Ankle pumps, Quad Set, Glut sets, Straight leg raise, Hip abd/add 2 sets of 20 on the supine exercises Treatments bed mobility and transfers, functional strengthening, ROM, wheelchair mobility Assessment Current Status: Fair Progress improving transfers and wheelchair mobility PT Short Term Goals Short Term Goals Time Frame: November 10, 2017 Gait (FIM): 1 Gait Distance Comment: 5' Gait Level of Assist: 4 Gait Assistive Device: FWW Wheelchair Distance: 150'x2 PT [facility] Goals Mask Design Engineer Goals PT Mask Design Engineer Goals Time Frame: Nov 24, 2017 Transfers (B,C,W/C) (FIM): 5 Sit to Lying (QC): 4 Lying-Sitting on Side/Bed(QC): 4 Sit to Stand (QC): 4 Rollin Roll Left to Right (QC): 4 Chair/Jlh-rn-Mvvle Xfer(QC): 4 Car Transfer (QC): 4 Gait (FIM): 1 Distance: 20' Walk 10 feet (QC): 4 Walk 10ft-Uneven Surface(QC): 4 Gait Level of Assist: 4 Gait Assistive Device: FWW Wheelchair (FIM): 6 Distance: 150' Wheel 50 feet with 2 turns (QC: 6 PT Plan Problem List Problem List: Activity Tolerance, Functional Strength, Safety, Balance, Gait, Transfer, Bed Mobility, ROM Treatment/Plan Treatment Plan: Continue Plan of Care Treatment Plan: Bed Mobility, Concurrent Therapy, Education, Functional Activity [place], Functional Strength, Group Therapy, Gait, Safety, Therapeutic Exercise, Transfers Treatment Duration: Nov 24, 2017 Frequency: At least 5 of 7 days/Wk (IRF) Estimated Hrs Per Day: 1.5 hours per day Patient and/or Family Agrees t: Yes Safety Risks/Education Patient Education: Transfer Techniques, Reviewed Precautions, Correct Positioning, W/C Management, Disease Process, Safety Issues Teaching Recipient: Patient Teaching Methods: Demonstration, Discussion Response to Teaching: Reinforcement Needed Time/GCodes Time In: 0800 Time Out: 0900 Total Billed Treatment Time: 60 Total Billed Treatment 1 visit FA 15' [facility] 15' EX 30' FARIHA REYES PT November 14, 2017 08:56
--- NOTE | 2017-11-14 11:30 | Occupational Ther Daily Note ---
OT Current Status-Daily Note Subjective Pt alert, sitting in recliner. Pt agrees to therapy. No c/o pain at this time. Neck brace was d/c'd Mental Status/Objective Patient Orientation: Person, Place, Time, Situation Functional [place] Measure 0=Not Assessed/NA 4=Minimal Assistance 1=Total Assistance 5=Supervision or Setup 2=Maximal Assistance 6=Modified [place] 3=Moderate Assistance 7=Complete [place] Attachments: PEG Tube, Other-See Comments (LE braces.) ADL-Treatment SBA for transfers by scooting from one surface to another. Pt able to maneuver w/c from room to large bathroom. Pt transferred from w/c to shower transfer bench with SBA for safety. Assist to lift B LE onto tub seat. Pt was able to bathe all areas using bench, hand held shower and long handle sponge. Assist to don/doff LE braces. Assist to don/doff lower body clothing due to braces. Set up to don/doff upper body clothing. Pt transferred back to bed and was able to complete bed mobility with minimal assist to maneuver L LE onto pillow. After therapy, pt lying in bed with call light/phone in reach. All needs met in room. Functional [place] Measure 0=Not Assessed/NA 4=Minimal Assistance 1=Total Assistance 5=Supervision or Setup 2=Maximal Assistance 6=Modified [place] 3=Moderate Assistance 7=Complete IndependenceIRFPAI Quality Coding Scale 6 Independent with activity with or without an assistive device 5 Patient requires set up or clean up by helper. Patient completes activity by themselves 4 Supervision or touching assist (CGA). [place] provide cues , steadying assist 3 The helper provides less than half the effort to complete the activity 2 The helper provides more than half the effort to complete the activity 1 Dependent. The helper does all the effort to complete an activity 7 Patient refused to complete or attempt activity 9 The patient did not perform the activity before the current illness or injury 88 Not attempted due to Medical conditions or safety concerns Bathing (FIM): 5 Bathing Location: L Arm, R Arm, L Upper Leg, R Upper Leg, L Lower Leg ( including foot), R Lower Leg (including foot), Chest, Abdomen, Buttocks, Perineal Area Shower/Bathe Self (QC): 4 Upper Body (FIM): 5 Upper Body Dressing (QC): 5 Lower Body Dressing (FIM): 2 Lower Body Dressing (QC): 2 On/Off Footwear (QC): 1 Shower Transfer(FIM): 5 OT Short Term Goals Short Term Goals Time Frame: November 11, 2017 Bathing(FIM): 4 Toileting(FIM): 3 Toilet/Commode Transfer(FIM): 4 Additional Short Term Goals: 1-Demonstrate ADL Tasks, 2-Verbalize Understanding , 3-ImproveStrength/Douglas 1=Demonstrate adherence to instructed precautions during ADL tasks. 2=Patient will verbalize/demonstrate understanding of assistive devices/ modifications for ADL. 3=Patient will improve strength/tolerance for activity to enable patient to perform ADL's. OT Retirement Goals Retirement Goals Time Frame: Nov 25, 2017 Eating (FIM): 5 Eating (QC): 5 Groomin Oral Hygiene (QC): 6 Bathing(FIM): 5 Shower/Bathe Self (QC): 4 Upper Body Dressing(FIM): 5 Upper Body Dressing (QC): 5 Lower Body Dressing(FIM): 5 Lower Body Dressing (QC): 5 On/Off Footwear (QC): 5 Toileting(FIM): 5 Toileting Hygiene (QC): 4 Toilet/Commode Transfer(FIM): 5 Toilet/Commode Transfer (QC): 4 Shower Transfer(FIM): 5 Comprehension(FIM): 4 Expression (FIM): 5 Social Interaction(FIM): 5 Problem Solving(FIM): 4 Memory(FIM): 4 Additional Goals: 1-Demonstrate ADL Tasks, 2-Verbalize Understanding, 3- ImproveStrength/Douglas 1=Demonstrate adherence to instructed precautions during ADL tasks. 2=Patient will verbalize/demonstrate understanding of assistive devices/ modifications for ADL. 3=Patient will improve strength/tolerance for activity to enable patient to perform ADL's. OT Education/Plan Problem List/Assessment Pt would benefot from skilled OT to increase his independence in basic self care to allow him to safely return home Discharge Recommendations Plan/Recommendations: Continue POC Treatment Plan/Plan of Care Patient would benefit from OT for education, treatment and training to promote independence in ADL's, mobility, safety and/or upper extremity function for ADL' s. Plan of Care: ADL Retraining, Caregiver Training, Functional Mobility, Group Exercise/Act as Ind (education, exercise, funct activity, activity tolerance, socialization, memory), Orthotic Fitting/Training, UE Funct Exercise/Act, UE Neuromus Re-Ed/Coord, Visual/Perceptual Retrain, W/C Management Training Treatment Duration: Nov 25, 2017 Frequency: At least 5 of 7 days/Wk (IRF) Estimated Hrs Per Day: 1.5 hours per day (1.25 to 1.5) Agreement: Yes Rehab Potential: Fair Time/GCodes Start Time: 10:00 Stop Time: 11:30 Total Time Billed (hr/min): 90 Billed Treatment Time 1 visit-ADL 6 (90 min) MALI BUITRAGO November 14, 2017 11:30
--- NOTE | 2017-11-14 12:03 | Physical Therapy Daily Note ---
PT Daily Note-Current Subjective Pt in bed, refusing to participate in group therapy this date. Pt agreeable to bed ex only, declines request to move OOB. 11/27 (R) ankle pain "earlier". Mental Status Patient Orientation: Person, Place, Situation Transfers Functional [place] Measure 0=Not Assessed/NA 4=Minimal Assistance 1=Total Assistance 5=Supervision or Setup 2=Maximal Assistance 6=Modified [place] 3=Moderate Assistance 7=Complete IndependenceIRFPAI Quality Coding Scale 6 Independent with activity with or without an assistive device 5 Patient requires set up or clean up by helper. Patient completes activity by themselves 4 Supervision or touching assist (CGA). [place] provide cues , steadying assist 3 The helper provides less than half the effort to complete the activity 2 The helper provides more than half the effort to complete the activity 1 Dependent. The helper does all the effort to complete an activity 7 Patient refused to complete or attempt activity 9 The patient did not perform the activity before the current illness or injury 88 Not attempted due to Medical conditions or safety concerns Weight Bearing Right Lower Extremity: Right Non Weight Bearing Left Lower Extremity: Left Weight Bearing/Tolerated Exercises Supine Ex: Ankle pumps ((L) LE-DF/PF and IV/EV), Glut sets, Straight leg raise , Hip abd/add Supine Reps: 20 Treatments Supine ex 2 x 20 each. Pt refused group therapy and OOB activity. In bed with (B ) LE elevated. Needs met. Assessment Current Status: Fair Progress Pt self limiting this date. Good performance with ex this date. Occasional Min A x 1 on (R) LE. VCS for good control and to slow speed of exercise. PT Short Term Goals Short Term Goals Time Frame: November 10, 2017 Gait (FIM): 1 Gait Distance Comment: 5' Gait Level of Assist: 4 Gait Assistive Device: FWW Wheelchair Distance: 150'x2 PT Occupational Therapy Department Chair Goals Assisted Goals PT Assisted Goals Time Frame: Nov 24, 2017 Transfers (B,C,W/C) (FIM): 5 Sit to Lying (QC): 4 Lying-Sitting on Side/Bed(QC): 4 Sit to Stand (QC): 4 Rollin Roll Left to Right (QC): 4 Chair/Ior-ms-Gggve Xfer(QC): 4 Car Transfer (QC): 4 Gait (FIM): 1 Distance: 20' Walk 10 feet (QC): 4 Walk 10ft-Uneven Surface(QC): 4 Gait Level of Assist: 4 Gait Assistive Device: FWW Wheelchair (FIM): 6 Distance: 150' Wheel 50 feet with 2 turns (QC: 6 PT Plan Problem List Problem List: Activity Tolerance, Functional Strength, Safety, Balance, Gait, Transfer, Bed Mobility, ROM Treatment/Plan Treatment Plan: Continue Plan of Care Treatment Plan: Bed Mobility, Concurrent Therapy, Education, Functional Activity [place], Functional Strength, Group Therapy, Gait, Safety, Therapeutic Exercise, Transfers Treatment Duration: Nov 24, 2017 Frequency: At least 5 of 7 days/Wk (IRF) Estimated Hrs Per Day: 1.5 hours per day Patient and/or Family Agrees t: Yes Time/GCodes Time In: 1135 Time Out: 1205 Total Billed Treatment Time: 30 Total Billed Treatment 1, Ex x 30' G Codes Necessary: AILYN Macario DPRegan November 14, 2017 12:03
[2017-11-14 17:53] VITALS: BP 106/66
[2017-11-14] MEDS: traZODone 50 MG (DESYREL) TAB PO SCH (21:18)
[2017-11-14] MEDS: QUEtiapine 25 MG (SEROquel) TAB IMMEDIATE RELEASE PEG SCH (21:18)
[2017-11-15 05:06] VITALS: BP 109/69
[2017-11-15] MEDS: ARTIFICAL TEARS 0.4 ML UNIT DOSE (REFRESH PLUS) OU SCH ×4 (06:10→21:13)
[2017-11-15] MEDS: oxyCODONE/APAP 5/325MG (PERCOCET 5) TABLET PEG PRN ×4 (06:53→21:14)
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
[2017-11-15] MEDS: DOCUSATE SODIUM 10 MG/ML 10 ML UDC (COLACE) PEG SCH ×2 (08:32→21:12)
[2017-11-15] MEDS: ENOXAPARIN 30 MG/0.3 ML (LOVENOX) SYR SC SCH ×2 (08:32→21:13)
[2017-11-15] MEDS: lisINopril 10 MG (PRINIVIL) TABLET PEG SCH (08:32)
--- NOTE | 2017-11-15 10:04 | Speech Therapy Daily Note ---
Speech Daily Progress Note Subjective Date Seen by Provider: November 15, 2017 Time Seen by Provider: 09:00 The patient was seated upright in recliner upon entrance. The patient greeted the clinician appropriately and was agreeable to participation in the dysphagia treatment session. Objective Dysphagia Exercises: Base of tongue retraction, laryngeal closure, and pharyngeal wall contraction exercises were continued on this date. The patient demonstrated improved and increased accuracy and participation. Ten repetitions of each exercise were performed with mild clinician cueing. The patient was observed sipping water via cup throughout the session. No signs/ symptoms of aspiration were demonstrated. The patient's swallowing strategies were extensively reviewed throughout the session. The patient remains extremely motivated for improvement. Assessment Assessment Current Status: Good Progress Treatment Plan Continue Plan of Care Communication Comprehension: 4 Expression: 5 Social Cognition Social Interaction: 4 Problem Solvin Memory: 3 Speech Short Term Goals Short Term Goals Short Term Goals 1. The patient will attend to a task for a duration of five minutes with mild clinician verbal prompting. 2. The patient will identify safety concerns in a common environment with 80% accuracy and mild clinician verbal cueing. 3. The patient will recall and demonstrate intelligibility strategies with 80% accuracy and mild clinician cueing. 4. The patient will tolerate 10/10 puree and honey-thickened liquid bolus trials without signs/symptoms of aspiration or laryngeal penetration. Time Frame-STG: Two Weeks Speech Fire Protection Inspector Goals Detention Goals 1. The patient will demonstrate improved cognitive linguistic skills for increased safety and function with ADL's. 2. The patient will tolerate trials of the least restrictive consistency without signs/symptoms of aspiration. Time Frame: Four Weeks Comprehension: 4 Expression: 5 Social Interaction: 5 Problem Solvin Memory: 4 Speech-Plan Treatment Plan Speech Therapy Treatment Plan: Continue Plan of Care Continue dysphagia treatment to target swallowing safety. Treatment Duration: Dec 01, 2017 Frequency: 3 times per week Estimated Hrs Per Day: .5 hour per day Rehab Potential: Fair Safety Risks/Education Teaching Recipient: Patient Teaching Methods: Demonstration, Handout, Discussion Response to Teaching: Return Demonstration Education Topics Provided: Dysphagia Exercises Time Speech Therapy Time In: 09:00 Speech Therapy Time Out: 09:30 Total Billed Time: 30 Billed Treatment Time CHARLENE Dean ELIZABETH November 15, 2017 10:04
[2017-11-15] MEDS: DOXYCYCLINE 100 MG (VIBRAMYCIN) TABLET PO SCH ×2 (10:24→17:12)
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
--- NOTE | 2017-11-15 14:17 | Occupational Ther Daily Note ---
OT Current Status-Daily Note Subjective Pt seen in room, up in bed, agreeable to OT. No pain mentioned but he said he was tired from PT. Appearance Alert, cooperative Mental Status/Objective Functional [place] Measure 0=Not Assessed/NA 4=Minimal Assistance 1=Total Assistance 5=Supervision or Setup 2=Maximal Assistance 6=Modified [place] 3=Moderate Assistance 7=Complete [place] ADL-Treatment Functional [place] Measure 0=Not Assessed/NA 4=Minimal Assistance 1=Total Assistance 5=Supervision or Setup 2=Maximal Assistance 6=Modified [place] 3=Moderate Assistance 7=Complete IndependenceIRFPAI Quality Coding Scale 6 Independent with activity with or without an assistive device 5 Patient requires set up or clean up by helper. Patient completes activity by themselves 4 Supervision or touching assist (CGA). [place] provide cues , steadying assist 3 The helper provides less than half the effort to complete the activity 2 The helper provides more than half the effort to complete the activity 1 Dependent. The helper does all the effort to complete an activity 7 Patient refused to complete or attempt activity 9 The patient did not perform the activity before the current illness or injury 88 Not attempted due to Medical conditions or safety concerns Other Treatment Pt pleased to not have to wear cervical collar. He was able to move from supine to sit EOB without help. He transferred from bed to w/c after setup, scooting without sliding board. After leg rests were put on chair, he propelled it to the gym. Pt did 10 minutes bilat UE exercise with arm bike set at 15-20 W resistance and 2 minutes set at 25W. He also did arc activity with short extension, bolt board and graded clothespins, all with 1# weight on each arm. To strengthen arms to help with transfers and ADLs. He propelled chair back to room (OT bringing pole with tube feeding) and positioned w/c for transfer. he was able to get both legs into bed and raised them up for pillows. he was unable to get slipper sock on/off L foot for transfer. Pt left up in bed, all needs met. Education OT Patient Education: Exercise program, Purpose of tx/functional activities Teaching Recipient: Patient Teaching Methods: Discussion Response to Teaching: Verbalize Understanding OT Short Term Goals Short Term Goals Time Frame: November 11, 2017 Bathing(FIM): 4 Toileting(FIM): 3 Toilet/Commode Transfer(FIM): 4 Additional Short Term Goals: 1-Demonstrate ADL Tasks, 2-Verbalize Understanding , 3-ImproveStrength/[place] 1=Demonstrate adherence to instructed precautions during ADL tasks. 2=Patient will verbalize/demonstrate understanding of assistive devices/ modifications for ADL. 3=Patient will improve strength/tolerance for activity to enable patient to perform ADL's. OT Fpc Goals Toolsmith Goals Time Frame: Nov 25, 2017 Eating (FIM): 5 Eating (QC): 5 Groomin Oral Hygiene (QC): 6 Bathing(FIM): 5 Shower/Bathe Self (QC): 4 Upper Body Dressing(FIM): 5 Upper Body Dressing (QC): 5 Lower Body Dressing(FIM): 5 Lower Body Dressing (QC): 5 On/Off Footwear (QC): 5 Toileting(FIM): 5 Toileting Hygiene (QC): 4 Toilet/Commode Transfer(FIM): 5 Toilet/Commode Transfer (QC): 4 Shower Transfer(FIM): 5 Comprehension(FIM): 4 Expression (FIM): 5 Social Interaction(FIM): 5 Problem Solving(FIM): 4 Memory(FIM): 4 Additional Goals: 1-Demonstrate ADL Tasks, 2-Verbalize Understanding, 3- ImproveStrength/[place] 1=Demonstrate adherence to instructed precautions during ADL tasks. 2=Patient will verbalize/demonstrate understanding of assistive devices/ modifications for ADL. 3=Patient will improve strength/tolerance for activity to enable patient to perform ADL's. OT Education/Plan Problem List/Assessment Pt would benefot from skilled OT to increase his independence in basic self care to allow him to safely return home Discharge Recommendations Plan/Recommendations: Continue POC Treatment Plan/Plan of Care Patient would benefit from OT for education, treatment and training to promote independence in ADL's, mobility, safety and/or upper extremity function for ADL' s. Plan of Care: ADL Retraining, Caregiver Training, Functional Mobility, Group Exercise/Act as Ind (education, exercise, funct activity, activity tolerance, socialization, memory), Orthotic Fitting/Training, UE Funct Exercise/Act, UE Neuromus Re-Ed/Coord, Visual/Perceptual Retrain, W/C Management Training Treatment Duration: Nov 25, 2017 Frequency: At least 5 of 7 days/Wk (IRF) Estimated Hrs Per Day: 1.5 hours per day (1.25 to 1.5) Agreement: Yes Rehab Potential: Fair Time/GCodes Start Time: 11:00 Stop Time: 12:00 Total Time Billed (hr/min): 60 Billed Treatment Time visit, 60 minutes exercise AIDEN GARDINER OT November 15, 2017 14:16
--- NOTE | 2017-11-15 14:22 | Occupational Ther Daily Note ---
OT Current Status-Daily Note Subjective Pt seen in room, up in bed, agreeable to OT. Pleased about his walking this morning. No pain mentioned but indicated R shoulder was a little sore Appearance Alert, cooperative Mental Status/Objective Functional [place] Measure 0=Not Assessed/NA 4=Minimal Assistance 1=Total Assistance 5=Supervision or Setup 2=Maximal Assistance 6=Modified [place] 3=Moderate Assistance 7=Complete [place] ADL-Treatment Functional [place] Measure 0=Not Assessed/NA 4=Minimal Assistance 1=Total Assistance 5=Supervision or Setup 2=Maximal Assistance 6=Modified [place] 3=Moderate Assistance 7=Complete IndependenceIRFPAI Quality Coding Scale 6 Independent with activity with or without an assistive device 5 Patient requires set up or clean up by helper. Patient completes activity by themselves 4 Supervision or touching assist (CGA). [place] provide cues , steadying assist 3 The helper provides less than half the effort to complete the activity 2 The helper provides more than half the effort to complete the activity 1 Dependent. The helper does all the effort to complete an activity 7 Patient refused to complete or attempt activity 9 The patient did not perform the activity before the current illness or injury 88 Not attempted due to Medical conditions or safety concerns Other Treatment Pt did 10-15 reps bilat UE exercise with red chioma, working especially on shoulders and elbows and muscle groups needed to help with getting up and down and transfers. He needed occasional cues on how to do each exercise but tracked repetitions himself. Theraband left in room for pt to do a couple of exercises on his own. Pt return understanding of two exercises. Pt left up in bed, all needs met. Education OT Patient Education: Exercise program, Purpose of tx/functional activities Teaching Recipient: Patient Teaching Methods: Demonstration, Discussion Response to Teaching: Verbalize Understanding OT Short Term Goals Short Term Goals Time Frame: November 11, 2017 Bathing(FIM): 4 Toileting(FIM): 3 Toilet/Commode Transfer(FIM): 4 Additional Short Term Goals: 1-Demonstrate ADL Tasks, 2-Verbalize Understanding , 3-ImproveStrength/Douglas 1=Demonstrate adherence to instructed precautions during ADL tasks. 2=Patient will verbalize/demonstrate understanding of assistive devices/ modifications for ADL. 3=Patient will improve strength/tolerance for activity to enable patient to perform ADL's. OT Reel Stripper Goals [facility] Goals Time Frame: Nov 25, 2017 Eating (FIM): 5 Eating (QC): 5 Groomin Oral Hygiene (QC): 6 Bathing(FIM): 5 Shower/Bathe Self (QC): 4 Upper Body Dressing(FIM): 5 Upper Body Dressing (QC): 5 Lower Body Dressing(FIM): 5 Lower Body Dressing (QC): 5 On/Off Footwear (QC): 5 Toileting(FIM): 5 Toileting Hygiene (QC): 4 Toilet/Commode Transfer(FIM): 5 Toilet/Commode Transfer (QC): 4 Shower Transfer(FIM): 5 Comprehension(FIM): 4 Expression (FIM): 5 Social Interaction(FIM): 5 Problem Solving(FIM): 4 Memory(FIM): 4 Additional Goals: 1-Demonstrate ADL Tasks, 2-Verbalize Understanding, 3- ImproveStrength/Douglas 1=Demonstrate adherence to instructed precautions during ADL tasks. 2=Patient will verbalize/demonstrate understanding of assistive devices/ modifications for ADL. 3=Patient will improve strength/tolerance for activity to enable patient to perform ADL's. OT Education/Plan Problem List/Assessment Pt would benefot from skilled OT to increase his independence in basic self care to allow him to safely return home Discharge Recommendations Plan/Recommendations: Continue POC Treatment Plan/Plan of Care Patient would benefit from OT for education, treatment and training to promote independence in ADL's, mobility, safety and/or upper extremity function for ADL' s. Plan of Care: ADL Retraining, Caregiver Training, Functional Mobility, Group Exercise/Act as Ind (education, exercise, funct activity, activity tolerance, socialization, memory), Orthotic Fitting/Training, UE Funct Exercise/Act, UE Neuromus Re-Ed/Coord, Visual/Perceptual Retrain, W/C Management Training Treatment Duration: Nov 25, 2017 Frequency: At least 5 of 7 days/Wk (IRF) Estimated Hrs Per Day: 1.5 hours per day (1.25 to 1.5) Agreement: Yes Rehab Potential: Fair Time/GCodes Start Time: 13:30 Stop Time: 13:45 Total Time Billed (hr/min): 15 Billed Treatment Time visit, 15 minutes exercise AIDEN GARDINER OT November 15, 2017 14:22
[2017-11-15 17:36] VITALS: BP 105/66
[2017-11-15] MEDS: QUEtiapine 25 MG (SEROquel) TAB IMMEDIATE RELEASE PEG SCH (21:13)
[2017-11-15] MEDS: traZODone 50 MG (DESYREL) TAB PO SCH (21:14)
[2017-11-16 06:30] VITALS: BP 115/74
[2017-11-16] MEDS: DOXYCYCLINE 100 MG (VIBRAMYCIN) TABLET PO SCH ×2 (06:53→16:37)
[2017-11-16] MEDS: oxyCODONE/APAP 5/325MG (PERCOCET 5) TABLET PEG PRN ×3 (06:53→16:37)
[2017-11-16] MEDS: ARTIFICAL TEARS 0.4 ML UNIT DOSE (REFRESH PLUS) OU SCH ×4 (06:53→21:35)
[2017-11-16 07:50] LABS: ALBUMIN 3.1 GM/DL (3.2-4.5); BILIRUBIN,DIRECT 0.2 MG/DL (0.0-0.3); BILIRUBIN,INDIRECT 0.2 MG/DL; BILIRUBIN,TOTAL 0.4 MG/DL (0.1-1.0); TOTAL PROTEIN 7.5 GM/DL (6.4-8.2)
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
[2017-11-16] MEDS: lisINopril 10 MG (PRINIVIL) TABLET PEG SCH (09:01)
[2017-11-16] MEDS: DOCUSATE SODIUM 10 MG/ML 10 ML UDC (COLACE) PEG SCH ×2 (09:01→21:18)
[2017-11-16] MEDS: ENOXAPARIN 30 MG/0.3 ML (LOVENOX) SYR SC SCH ×2 (09:01→20:05)
--- NOTE | 2017-11-16 10:23 | Occupational Ther Daily Note ---
OT Current Status-Daily Note Subjective Pt seen in room, up in bed, agreeable to OT. No pain mentioned. Appearance Alert, cooperative Mental Status/Objective Functional [place] Measure 0=Not Assessed/NA 4=Minimal Assistance 1=Total Assistance 5=Supervision or Setup 2=Maximal Assistance 6=Modified [place] 3=Moderate Assistance 7=Complete [place] Attachments: PEG Tube ADL-Treatment Pt agreeable to shower. After OT applying cast boot to L foot, pt transferred from bed to w/c with SBA, setup. He needed help putting leg rests on w/c. Pt propelled himself to shower room. He transferred to transfer tub bench with SBA , setup and helped elevate legs on shower chair. He was able to take shirt off and put a clean one on with setup but needed mod assist with shorts (getting them on/off over braces and cast boot). He washed and dried all parts with setup , using long handled sponge, hand held shower, grab bars, transfer tub bench. Dressings changed by nursing and braces/cast boot reapplied. Pt transferred back to w/c with SBA, setup and took himself back to his room. Extra time needed for preparation. Functional [place] Measure 0=Not Assessed/NA 4=Minimal Assistance 1=Total Assistance 5=Supervision or Setup 2=Maximal Assistance 6=Modified [place] 3=Moderate Assistance 7=Complete IndependenceIRFPAI Quality Coding Scale 6 Independent with activity with or without an assistive device 5 Patient requires set up or clean up by helper. Patient completes activity by themselves 4 Supervision or touching assist (CGA). [place] provide cues , steadying assist 3 The helper provides less than half the effort to complete the activity 2 The helper provides more than half the effort to complete the activity 1 Dependent. The helper does all the effort to complete an activity 7 Patient refused to complete or attempt activity 9 The patient did not perform the activity before the current illness or injury 88 Not attempted due to Medical conditions or safety concerns Bathing (FIM): 5 Upper Body (FIM): 5 Lower Body Dressing (FIM): 3 Transfers (B, C, W/C) (FIM): 5 Shower Transfer(FIM): 5 Education OT Patient Education: Modified ADL techniques, Progress toward Goal/Update tx plan, Purpose of tx/functional activities, Transfer techniques Teaching Recipient: Patient Teaching Methods: Discussion Response to Teaching: Verbalize Understanding, Return Demonstration OT Short Term Goals Short Term Goals Time Frame: November 11, 2017 Bathing(FIM): 4 Toileting(FIM): 3 Toilet/Commode Transfer(FIM): 4 Additional Short Term Goals: 1-Demonstrate ADL Tasks, 2-Verbalize Understanding , 3-ImproveStrength/Douglas 1=Demonstrate adherence to instructed precautions during ADL tasks. 2=Patient will verbalize/demonstrate understanding of assistive devices/ modifications for ADL. 3=Patient will improve strength/tolerance for activity to enable patient to perform ADL's. OT Detention Goals Water Treatment Plant Mechanic Goals Time Frame: Nov 25, 2017 Eating (FIM): 5 Eating (QC): 5 Groomin Oral Hygiene (QC): 6 Bathing(FIM): 5 Shower/Bathe Self (QC): 4 Upper Body Dressing(FIM): 5 Upper Body Dressing (QC): 5 Lower Body Dressing(FIM): 5 Lower Body Dressing (QC): 5 On/Off Footwear (QC): 5 Toileting(FIM): 5 Toileting Hygiene (QC): 4 Toilet/Commode Transfer(FIM): 5 Toilet/Commode Transfer (QC): 4 Shower Transfer(FIM): 5 Comprehension(FIM): 4 Expression (FIM): 5 Social Interaction(FIM): 5 Problem Solving(FIM): 4 Memory(FIM): 4 Additional Goals: 1-Demonstrate ADL Tasks, 2-Verbalize Understanding, 3- ImproveStrength/Douglas 1=Demonstrate adherence to instructed precautions during ADL tasks. 2=Patient will verbalize/demonstrate understanding of assistive devices/ modifications for ADL. 3=Patient will improve strength/tolerance for activity to enable patient to perform ADL's. OT Education/Plan Problem List/Assessment Pt would benefot from skilled OT to increase his independence in basic self care to allow him to safely return home Discharge Recommendations Plan/Recommendations: Continue POC Treatment Plan/Plan of Care Patient would benefit from OT for education, treatment and training to promote independence in ADL's, mobility, safety and/or upper extremity function for ADL' s. Plan of Care: ADL Retraining, Caregiver Training, Functional Mobility, Group Exercise/Act as Ind (education, exercise, funct activity, activity tolerance, socialization, memory), Orthotic Fitting/Training, UE Funct Exercise/Act, UE Neuromus Re-Ed/Coord, Visual/Perceptual Retrain, W/C Management Training Treatment Duration: Nov 25, 2017 Frequency: At least 5 of 7 days/Wk (IRF) Estimated Hrs Per Day: 1.5 hours per day (1.25 to 1.5) Agreement: Yes Rehab Potential: Fair Time/GCodes Start Time: 08:35 Stop Time: 09:50 Total Time Billed (hr/min): 75 Billed Treatment Time visit, 75 minutes ADL AIDEN GARDINER OT November 16, 2017 10:23
--- NOTE | 2017-11-16 10:50 | Speech Therapy Daily Note ---
Speech Daily Progress Note Subjective Date Seen by Provider: November 16, 2017 Time Seen by Provider: 08:00 The patient was seated upright in bed upon entrance. The patient greeted the clinician appropriately and was agreeable to participation in the dysphagia treatment session. Per patient, he is eager to discharge to his mother's house. The patient requests speech pathology visit with other disciplines throughout the progress meeting on this date to set a discharge date. While the clinician was providing treatment, Dr. Pruitt followed up with the patient. The clinician requested a reduction in PEG tube feedings in attempts to provide a full oral diet prior to discharge. Dr. Pruitt agreed with this request and stated he would consult the manager marketing communications to arrange an appropriate weaning schedule. Objective Dysphagia Exercises: Base of tongue retraction, laryngeal closure, and pharyngeal wall contraction exercises were continued on this date. The patient demonstrated improved and increased accuracy and participation. Ten repetitions of each exercise were performed with mild clinician cueing. The patient was observed sipping water via cup throughout the session. No signs/ symptoms of aspiration were demonstrated. The patient's swallowing strategies were extensively reviewed throughout the session. The patient remains extremely motivated for improvement. Assessment Assessment Current Status: Good Progress Treatment Plan Continue Plan of Care Communication Comprehension: 4 Expression: 5 Social Cognition Social Interaction: 4 Problem Solvin Memory: 3 Speech Short Term Goals Short Term Goals Short Term Goals 1. The patient will attend to a task for a duration of five minutes with mild clinician verbal prompting. 2. The patient will identify safety concerns in a common environment with 80% accuracy and mild clinician verbal cueing. 3. The patient will recall and demonstrate intelligibility strategies with 80% accuracy and mild clinician cueing. 4. The patient will tolerate 10/10 puree and honey-thickened liquid bolus trials without signs/symptoms of aspiration or laryngeal penetration. Time Frame-STG: Two Weeks Speech Care Home Goals Administrative Support Assoc Goals 1. The patient will demonstrate improved cognitive linguistic skills for increased safety and function with ADL's. 2. The patient will tolerate trials of the least restrictive consistency without signs/symptoms of aspiration. Time Frame: Four Weeks Comprehension: 4 Expression: 5 Social Interaction: 5 Problem Solvin Memory: 4 Speech-Plan Treatment Plan Speech Therapy Treatment Plan: Continue Plan of Care Continue skilled speech pathology to target improved swallowing safety. Treatment Duration: Dec 01, 2017 Frequency: 3 times per week Estimated Hrs Per Day: .5 hour per day Rehab Potential: Fair Safety Risks/Education Teaching Recipient: Patient Teaching Methods: Demonstration Response to Teaching: Return Demonstration Education Topics Provided: Dysphagia Exercises Time Speech Therapy Time In: 08:00 Speech Therapy Time Out: 08:30 Total Billed Time: 30 Billed Treatment Time 1CHARLENE ELIZABETH ST November 16, 2017 10:50
--- NOTE | 2017-11-16 10:52 | Physical Therapy Daily Note ---
PT Daily Note-Current Subjective Pt. very upset this morning stating he really doesnt want to do therapy b/c he just learned he has MRSA and is very upset. Pt. states he only wants to have his bed made, get some fresh ice and have some assist in to the recliner. With some explanation and encouragement pt. did agree to walk and exercise and TRF training Pain Numeric Pain Scale: 0-No Pain Mental Status Patient Orientation: Normal For Age Attachments: Other-See Comments (bilat leg immoblizers) Transfers Functional [place] Measure 0=Not Assessed/NA 4=Minimal Assistance 1=Total Assistance 5=Supervision or Setup 2=Maximal Assistance 6=Modified [place] 3=Moderate Assistance 7=Complete IndependenceIRFPAI Quality Coding Scale 6 Independent with activity with or without an assistive device 5 Patient requires set up or clean up by helper. Patient completes activity by themselves 4 Supervision or touching assist (CGA). [place] provide cues , steadying assist 3 The helper provides less than half the effort to complete the activity 2 The helper provides more than half the effort to complete the activity 1 Dependent. The helper does all the effort to complete an activity 7 Patient refused to complete or attempt activity 9 The patient did not perform the activity before the current illness or injury 88 Not attempted due to Medical conditions or safety concerns Transfers (B, C, W/C) (FIM): 3 Scootin Rollin Supine to/from Sit: 5 Sit to/from Stand: 3 Bed to/from Chair: 4 pt. has to be "crained" up as bilat knees are fixed by immoblizers. pt. uses UEs but this requires considerable assist to stance Weight Bearing Right Lower Extremity: Right Non Weight Bearing Left Lower Extremity: Left Weight Bearing/Tolerated Gait Training Does the Patient Walk?: Yes Gait (FIM): 2 Distance (FIM): 6=815-64 ft (50ft,70ft) Gait Level of Assist: 4 Gait Persons Needed: 1 Gait Assistive Device: FWW needs w/c to follow close behind as stand to sup is also mod assist to lower back down in to chair Wheelchair Training Does the Pt Use a Wheelchair?: Yes Wheelchair (FIM): 4 Wheelchair Distance: 3=150 ft Wheelchair Level of Assist: 4 Type of Wheelchair: Manual assist only for leg rests Exercises Supine Ex: Ankle pumps (left only), Quad Set, Rolling, Glut sets, Straight leg raise (assist right), Hip abd/add (assist right only) Assessment Current Status: Good Progress frustrated today but gave good effort PT Short Term Goals Short Term Goals Time Frame: November 10, 2017 Gait (FIM): 1 Gait Distance Comment: 5' Gait Level of Assist: 4 Gait Assistive Device: FWW Wheelchair Distance: 150'x2 PT Hard Tile Setter Apprentice Goals [facility] Goals PT [facility] Goals Time Frame: Nov 24, 2017 Transfers (B,C,W/C) (FIM): 5 Sit to Lying (QC): 4 Lying-Sitting on Side/Bed(QC): 4 Sit to Stand (QC): 4 Rollin Roll Left to Right (QC): 4 Chair/Hru-sj-Vnxse Xfer(QC): 4 Car Transfer (QC): 4 Gait (FIM): 1 Distance: 20' Walk 10 feet (QC): 4 Walk 10ft-Uneven Surface(QC): 4 Gait Level of Assist: 4 Gait Assistive Device: FWW Wheelchair (FIM): 6 Distance: 150' Wheel 50 feet with 2 turns (QC: 6 PT Plan Treatment/Plan Treatment Plan: Continue Plan of Care Treatment Plan: Bed Mobility, Concurrent Therapy, Education, Functional Activity [place], Functional Strength, Group Therapy, Gait, Safety, Therapeutic Exercise, Transfers Treatment Duration: Nov 24, 2017 Frequency: At least 5 of 7 days/Wk (IRF) Estimated Hrs Per Day: 1.5 hours per day Patient and/or Family Agrees t: Yes Safety Risks/Education Patient Education: Gait Training, Transfer Techniques, Correct Positioning, W/ C Management, Safety Issues Teaching Recipient: Patient Teaching Methods: Demonstration, Discussion Response to Teaching: Verbalize Understanding, Return Demonstration, Reinforcement Needed Time/GCodes Time In: 1010 Time Out: 1100 Total Billed Treatment Time: 50 Total Billed Treatment 1,GT20,FA15,EX15 G Codes Necessary: MISAH Bell STEAM HEATING INSTALLER November 16, 2017 10:52
[2017-11-16] MEDS: FLUTICASONE NASAL SPRAY (FLONASE) 16 GM BTL NS SCH (10:58)
--- NOTE | 2017-11-16 14:55 | Therapy Group Daily Note ---
Therapy Daily Group Note Patient Education Topic Other List Below (rehab practices and expectations, walker safety , car TRF technique) Exercises LE Standing Exercise, UE Exercise Other/Notes Pt. participated in group PT OT session this date. Pt. came and went via w/c managing w/c Mod I. Pt. introduced himself and was social , made conversation and asked questions. Pts. participated in group seated U&L extremity exercises that they lead using illustrated exercise guide cards. Education focused on ARU orientation as well as safe gait practice using FWW and car TRF techniques. Pt. to room after Rx with CGA to SBA for TRF w/c to bed. Pt. supine with call parrish and needs met after. Start Time: 13:00 Stop Time: 14:15 Total Billed Treatment Time: 75 Total Billed Treatment 1,GRP MISHA JORDAN CLIP LOADING MACHINE ADJUSTER November 16, 2017 14:55
[2017-11-16 15:59] VITALS: BP 126/70
[2017-11-16] MEDS: QUEtiapine 25 MG (SEROquel) TAB IMMEDIATE RELEASE PEG SCH (21:18)
[2017-11-16] MEDS: traZODone 50 MG (DESYREL) TAB PO SCH (21:18)
[2017-11-17 06:00] VITALS: BP 154/76
[2017-11-17] MEDS: ARTIFICAL TEARS 0.4 ML UNIT DOSE (REFRESH PLUS) OU SCH ×4 (06:23→21:45)
[2017-11-17] MEDS: DOXYCYCLINE 100 MG (VIBRAMYCIN) TABLET PO SCH ×2 (06:29→10:41)
[2017-11-17] MEDS: oxyCODONE/APAP 5/325MG (PERCOCET 5) TABLET PEG PRN ×4 (07:48→23:03)
[2017-11-17 08:01] LABS: HEPATITIS C ANTIBODY C Reactive (Non-Reactive)
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
[2017-11-17] MEDS: lisINopril 10 MG (PRINIVIL) TABLET PEG SCH (10:41)
[2017-11-17] MEDS: ENOXAPARIN 30 MG/0.3 ML (LOVENOX) SYR SC SCH ×2 (10:42→21:44)
[2017-11-17] MEDS: DOCUSATE SODIUM 10 MG/ML 10 ML UDC (COLACE) PEG SCH ×2 (10:42→21:45)
--- NOTE | 2017-11-17 10:58 | Physical Therapy Daily Note ---
PT Daily Note-Current Subjective Patient in wheelchair pre tx, agrees to PT, no complaints of pain at rest. Appearance Patient in recliner post tx with legs elevated, has nurse call, phone, tray, all needs met. Mental Status Patient Orientation: Person, Place, Situation bilateral leg braces Transfers Functional White Measure 0=Not Assessed/NA 4=Minimal Assistance 1=Total Assistance 5=Supervision or Setup 2=Maximal Assistance 6=Modified White 3=Moderate Assistance 7=Complete IndependenceIRFPAI Quality Coding Scale 6 Independent with activity with or without an assistive device 5 Patient requires set up or clean up by helper. Patient completes activity by themselves 4 Supervision or touching assist (CGA). [place] provide cues , steadying assist 3 The helper provides less than half the effort to complete the activity 2 The helper provides more than half the effort to complete the activity 1 Dependent. The helper does all the effort to complete an activity 7 Patient refused to complete or attempt activity 9 The patient did not perform the activity before the current illness or injury 88 Not attempted due to Medical conditions or safety concerns Transfers (B, C, W/C) (FIM): 3 Sit to/from Stand: 3 Bed to/from Chair: 5 Patient slides from chair to bed or another chair with SBA and without using a sliding board. He requires min to mod assist to stand due to not being able to bend his knees because of the braces. Weight Bearing Right Lower Extremity: Right Non Weight Bearing Left Lower Extremity: Left Weight Bearing/Tolerated Gait Training Gait (FIM): 2 Distance: 100', 80', 40' Gait Level of Assist: 4 Gait Persons Needed: 1 Gait Assistive Device: FWW CGA, step-to gait pattern with left leg leading, patient is compliant with his weight bearing status. Wheelchair Training Does the Pt Use a Wheelchair?: Yes Wheelchair (FIM): 5 Distance: 150', 300', 500' Type of Wheelchair: Manual Patient was able to propel his wheelchair in an outdoors environment on sidewalk and was able to go up and down a ramp. He was able to propel a wheelchair up a ramp using only his arms to propel. Treatments transfers, ambulation, wheelchair mobility Assessment Current Status: Fair Progress improving ambulation, wheelchair mobility, endurance PT Short Term Goals Short Term Goals Time Frame: November 10, 2017 Gait (FIM): 1 Gait Distance Comment: 5' Gait Level of Assist: 4 Gait Assistive Device: FWW Wheelchair Distance: 150'x2 PT Custodial Goals Custodial Goals PT Crane Hoist Or Lift Operator Goals Time Frame: Nov 24, 2017 Transfers (B,C,W/C) (FIM): 5 Sit to Lying (QC): 4 Lying-Sitting on Side/Bed(QC): 4 Sit to Stand (QC): 4 Rollin Roll Left to Right (QC): 4 Chair/Sep-ap-Njpyy Xfer(QC): 4 Car Transfer (QC): 4 Gait (FIM): 1 Distance: 20' Walk 10 feet (QC): 4 Walk 10ft-Uneven Surface(QC): 4 Gait Level of Assist: 4 Gait Assistive Device: FWW Wheelchair (FIM): 6 Distance: 150' Wheel 50 feet with 2 turns (QC: 6 PT Plan Problem List Problem List: Activity Tolerance, Functional Strength, Safety, Balance, Gait, Transfer, Bed Mobility, ROM Treatment/Plan Treatment Plan: Continue Plan of Care Treatment Plan: Bed Mobility, Concurrent Therapy, Education, Functional Activity Douglas, Functional Strength, Group Therapy, Gait, Safety, Therapeutic Exercise, Transfers Treatment Duration: Nov 24, 2017 Frequency: At least 5 of 7 days/Wk (IRF) Estimated Hrs Per Day: 1.5 hours per day Patient and/or Family Agrees t: Yes Safety Risks/Education Patient Education: Gait Training, Transfer Techniques, Reviewed Precautions, Correct Positioning, W/C Management, Safety Issues Teaching Recipient: Patient Teaching Methods: Demonstration, Discussion Response to Teaching: Reinforcement Needed Time/GCodes Time In: 1000 Time Out: 1100 Total Billed Treatment Time: 60 Total Billed Treatment 1 visit FA 10' WCH 20' GT 30' FARIHA REYES PT November 17, 2017 10:58
--- NOTE | 2017-11-17 11:31 | Speech Therapy Daily Note ---
Speech Daily Progress Note Subjective Date Seen by Provider: November 17, 2017 Time Seen by Provider: 08:30 The patient was seated upright in bed upon entrance. The patient greeted the clinician appropriately and was agreeable to participation in the dysphagia treatment session. Per patient, he is discouraged he has been diagnosed with MRSA and Hepatitis C. Per patient, the nocturnal feedings do not make him hungry for breakfast. The clinician encouraged the patient to continue attempts at breakfast and staff would monitor his ability to tolerate PO intake. Objective Dysphagia Exercises: Base of tongue retraction, laryngeal closure, and pharyngeal wall contraction exercises were continued on this date. The patient demonstrated improved and increased accuracy and participation. Ten repetitions of each exercise were performed with mild clinician cueing. The patient was observed sipping water via cup throughout the session. No signs/ symptoms of aspiration were demonstrated. Assessment Assessment Current Status: Fair Progress Treatment Plan Continue Plan of Care Communication Comprehension: 4 Expression: 5 Social Cognition Social Interaction: 4 Problem Solvin Memory: 3 Speech Short Term Goals Short Term Goals Short Term Goals 1. The patient will attend to a task for a duration of five minutes with mild clinician verbal prompting. 2. The patient will identify safety concerns in a common environment with 80% accuracy and mild clinician verbal cueing. 3. The patient will recall and demonstrate intelligibility strategies with 80% accuracy and mild clinician cueing. 4. The patient will tolerate 10/10 puree and honey-thickened liquid bolus trials without signs/symptoms of aspiration or laryngeal penetration. Time Frame-STG: Two Weeks Speech Alf Goals Air Bag Stripper Goals 1. The patient will demonstrate improved cognitive linguistic skills for increased safety and function with ADL's. 2. The patient will tolerate trials of the least restrictive consistency without signs/symptoms of aspiration. Time Frame: Four Weeks Comprehension: 4 Expression: 5 Social Interaction: 5 Problem Solvin Memory: 4 Speech-Plan Treatment Plan Speech Therapy Treatment Plan: Continue Plan of Care Continue skilled speech pathology to continue swallowing safety. Treatment Duration: Dec 01, 2017 Frequency: 3 times per week Estimated Hrs Per Day: .5 hour per day Rehab Potential: Fair Safety Risks/Education Teaching Recipient: Patient Teaching Methods: Demonstration, Handout, Discussion Response to Teaching: Return Demonstration, Reinforcement Needed Education Topics Provided: Dysphagia Exercises Time Speech Therapy Time In: 08:30 Speech Therapy Time Out: 09:00 Total Billed Time: 30 Billed Treatment Time JermaineCHARLENE ELIZABETH ST November 17, 2017 11:31
[2017-11-17] MEDS: FLUTICASONE NASAL SPRAY (FLONASE) 16 GM BTL NS SCH (11:41)
--- NOTE | 2017-11-17 15:16 | Occupational Ther Daily Note ---
OT Current Status-Daily Note Subjective Pt seen in room, up in bed, agreeable to OT. "Bummed" because he found out he has hepatitis C. No pain mentioned. Appearance Alert, cooperative Mental Status/Objective Functional [place] Measure 0=Not Assessed/NA 4=Minimal Assistance 1=Total Assistance 5=Supervision or Setup 2=Maximal Assistance 6=Modified [place] 3=Moderate Assistance 7=Complete [place] ADL-Treatment Pt washed and dried face and hands, arms, chest, abdomen, dave and bottom sponge bath but did not do legs due to braces. Setup, seated EOB. Doffed and donned t shirt with setup. Got pants down to tops of braces and able to pull clean ones up once they were put on over braces. Help to put cast boot on L foot. Pt transferred from bed to [facility] with SBA once it was positioned, he was able to raise arm rest, then transferred SBA to [facility], able to drop arm. He was able to manage clothing and hygiene with simulation. transferred back to [facility] and then to [facility] again, with adjusting arm rest of [facility] himself. Pt please with progress but concerned about discharge plans. Pt left up in [facility], all needs met. Functional [place] Measure 0=Not Assessed/NA 4=Minimal Assistance 1=Total Assistance 5=Supervision or Setup 2=Maximal Assistance 6=Modified [place] 3=Moderate Assistance 7=Complete IndependenceIRFPAI Quality Coding Scale 6 Independent with activity with or without an assistive device 5 Patient requires set up or clean up by helper. Patient completes activity by themselves 4 Supervision or touching assist (CGA). [place] provide cues , steadying assist 3 The helper provides less than half the effort to complete the activity 2 The helper provides more than half the effort to complete the activity 1 Dependent. The helper does all the effort to complete an activity 7 Patient refused to complete or attempt activity 9 The patient did not perform the activity before the current illness or injury 88 Not attempted due to Medical conditions or safety concerns Bathing (FIM): 5 Shower/Bathe Self (QC): 5 Upper Body (FIM): 5 Upper Body Dressing (QC): 5 Lower Body Dressing (FIM): 3 Lower Body Dressing (QC): 3 On/Off Footwear (QC): 3 Toilet/Commode Transfer (FIM): 5 (BSC) Toilet Transfer (QC): 4 Education OT Patient Education: Modified ADL techniques, Purpose of tx/functional activities, Transfer techniques, Use of adapted equipment Teaching Recipient: Patient Teaching Methods: Discussion Response to Teaching: Verbalize Understanding, Return Demonstration OT Short Term Goals Short Term Goals Time Frame: November 11, 2017 Bathing(FIM): 4 Toileting(FIM): 3 Toilet/Commode Transfer(FIM): 4 Additional Short Term Goals: 1-Demonstrate ADL Tasks, 2-Verbalize Understanding , 3-ImproveStrength/Douglas 1=Demonstrate adherence to instructed precautions during ADL tasks. 2=Patient will verbalize/demonstrate understanding of assistive devices/ modifications for ADL. 3=Patient will improve strength/tolerance for activity to enable patient to perform ADL's. OT Alf Goals Alf Goals Time Frame: Nov 25, 2017 Eating (FIM): 5 Eating (QC): 5 Groomin Oral Hygiene (QC): 6 Bathing(FIM): 5 Shower/Bathe Self (QC): 4 Upper Body Dressing(FIM): 5 Upper Body Dressing (QC): 5 Lower Body Dressing(FIM): 5 Lower Body Dressing (QC): 5 On/Off Footwear (QC): 5 Toileting(FIM): 5 Toileting Hygiene (QC): 4 Toilet/Commode Transfer(FIM): 5 Toilet/Commode Transfer (QC): 4 Shower Transfer(FIM): 5 Comprehension(FIM): 4 Expression (FIM): 5 Social Interaction(FIM): 5 Problem Solving(FIM): 4 Memory(FIM): 4 Additional Goals: 1-Demonstrate ADL Tasks, 2-Verbalize Understanding, 3- ImproveStrength/Douglas 1=Demonstrate adherence to instructed precautions during ADL tasks. 2=Patient will verbalize/demonstrate understanding of assistive devices/ modifications for ADL. 3=Patient will improve strength/tolerance for activity to enable patient to perform ADL's. OT Education/Plan Problem List/Assessment Pt would benefot from skilled OT to increase his independence in basic self care to allow him to safely return home Discharge Recommendations Plan/Recommendations: Continue POC Treatment Plan/Plan of Care Patient would benefit from OT for education, treatment and training to promote independence in ADL's, mobility, safety and/or upper extremity function for ADL' s. Plan of Care: ADL Retraining, Caregiver Training, Functional Mobility, Group Exercise/Act as Ind (education, exercise, funct activity, activity tolerance, socialization, memory), Orthotic Fitting/Training, UE Funct Exercise/Act, UE Neuromus Re-Ed/Coord, Visual/Perceptual Retrain, W/C Management Training Treatment Duration: Nov 25, 2017 Frequency: At least 5 of 7 days/Wk (IRF) Estimated Hrs Per Day: 1.5 hours per day (1.25 to 1.5) Agreement: Yes Rehab Potential: Fair Time/GCodes Start Time: 09:15 Stop Time: 10:00 Total Time Billed (hr/min): 45 Billed Treatment Time visit, 45 minutes ADL AIDEN GARDINER OT November 17, 2017 15:16
--- NOTE | 2017-11-17 15:19 | Physical Therapy Daily Note ---
PT Daily Note-Current Subjective Patient is very agreeable to perform w/c mobility outside. Pain Numeric Pain Scale: 0-No Pain Location: No Pain Reported Mental Status Patient Orientation: Person, Time, Situation Transfers Functional [place] Measure 0=Not Assessed/NA 4=Minimal Assistance 1=Total Assistance 5=Supervision or Setup 2=Maximal Assistance 6=Modified [place] 3=Moderate Assistance 7=Complete IndependenceIRFPAI Quality Coding Scale 6 Independent with activity with or without an assistive device 5 Patient requires set up or clean up by helper. Patient completes activity by themselves 4 Supervision or touching assist (CGA). [place] provide cues , steadying assist 3 The helper provides less than half the effort to complete the activity 2 The helper provides more than half the effort to complete the activity 1 Dependent. The helper does all the effort to complete an activity 7 Patient refused to complete or attempt activity 9 The patient did not perform the activity before the current illness or injury 88 Not attempted due to Medical conditions or safety concerns Transfers (B, C, W/C) (FIM): 5 Scootin Chair/Wml-xf-[id number] Xfer(QC): 5 Bed to/from Chair: 5 Weight Bearing Right Lower Extremity: Right Non Weight Bearing Left Lower Extremity: Left Weight Bearing/Tolerated Wheelchair Training Does the Pt Use a Wheelchair?: Yes Wheelchair (FIM): 6 Wheelchair Distance: 5=154-89 ft Distance: 100' x 4 Wheelchair Level of Assist: 6 Wheel 50 ft with 2 turns (QC): 5 Type of Wheelchair: Manual on all terrains inside and outside and up ramp. Assessment Patient requires recovery periods due to fatigue, however, is very motivated. PT to increase activity as tolerated by patient. PT Short Term Goals Short Term Goals Time Frame: November 10, 2017 Gait (FIM): 1 Gait Distance Comment: 5' Gait Level of Assist: 4 Gait Assistive Device: FWW Wheelchair Distance: 150', 300', 500' PT Hotel Service Manager Goals Retirement Goals PT Retirement Goals Time Frame: Nov 24, 2017 Transfers (B,C,W/C) (FIM): 5 Sit to Lying (QC): 4 Lying-Sitting on Side/Bed(QC): 4 Sit to Stand (QC): 4 Rollin Roll Left to Right (QC): 4 Chair/Jbr-wg-Zmkfi Xfer(QC): 4 Car Transfer (QC): 4 Gait (FIM): 1 Distance: 20' Walk 10 feet (QC): 4 Walk 10ft-Uneven Surface(QC): 4 Gait Level of Assist: 4 Gait Assistive Device: FWW Wheelchair (FIM): 6 Distance: 150' Wheel 50 feet with 2 turns (QC: 6 PT Plan Treatment/Plan Treatment Plan: Continue Plan of Care Treatment Plan: Bed Mobility, Concurrent Therapy, Education, Functional Activity Douglas, Functional Strength, Group Therapy, Gait, Safety, Therapeutic Exercise, Transfers Treatment Duration: Nov 24, 2017 Frequency: At least 5 of 7 days/Wk (IRF) Estimated Hrs Per Day: 1.5 hours per day Patient and/or Family Agrees t: Yes Time/GCodes Time In: 1440 Time Out: 1520 Total Billed Treatment Time: 30 Total Billed Treatment 1 visit [facility] x 2 30 min VENKAT YUNG PT November 17, 2017 15:18
--- NOTE | 2017-11-17 15:21 | Occupational Ther Daily Note ---
OT Current Status-Daily Note Subjective Pt seen in room, up in recliner, agreeable to OT. Said he took a nap in recliner and felt better. Appearance Alert, cooperative Mental Status/Objective Functional [place] Measure 0=Not Assessed/NA 4=Minimal Assistance 1=Total Assistance 5=Supervision or Setup 2=Maximal Assistance 6=Modified [place] 3=Moderate Assistance 7=Complete [place] ADL-Treatment Functional [place] Measure 0=Not Assessed/NA 4=Minimal Assistance 1=Total Assistance 5=Supervision or Setup 2=Maximal Assistance 6=Modified [place] 3=Moderate Assistance 7=Complete IndependenceIRFPAI Quality Coding Scale 6 Independent with activity with or without an assistive device 5 Patient requires set up or clean up by helper. Patient completes activity by themselves 4 Supervision or touching assist (CGA). [place] provide cues , steadying assist 3 The helper provides less than half the effort to complete the activity 2 The helper provides more than half the effort to complete the activity 1 Dependent. The helper does all the effort to complete an activity 7 Patient refused to complete or attempt activity 9 The patient did not perform the activity before the current illness or injury 88 Not attempted due to Medical conditions or safety concerns Other Treatment Pt did 15 reps bilat UE exercise with red theraband, with occasional cues to do exercise correctly. He occasionally did a few more reps for "extra credit". Exercises to strengthen arms to help with transfers and ADLs. Pt left up in recliner, all needs met. Education OT Patient Education: Exercise program, Purpose of tx/functional activities Teaching Recipient: Patient Teaching Methods: Demonstration Response to Teaching: Return Demonstration, Reinforcement Needed OT Short Term Goals Short Term Goals Time Frame: November 11, 2017 Bathing(FIM): 4 Toileting(FIM): 3 Toilet/Commode Transfer(FIM): 4 Additional Short Term Goals: 1-Demonstrate ADL Tasks, 2-Verbalize Understanding , 3-ImproveStrength/Douglas 1=Demonstrate adherence to instructed precautions during ADL tasks. 2=Patient will verbalize/demonstrate understanding of assistive devices/ modifications for ADL. 3=Patient will improve strength/tolerance for activity to enable patient to perform ADL's. OT Halfway Goals Medicine Man Goals Time Frame: Nov 25, 2017 Eating (FIM): 5 Eating (QC): 5 Groomin Oral Hygiene (QC): 6 Bathing(FIM): 5 Shower/Bathe Self (QC): 4 Upper Body Dressing(FIM): 5 Upper Body Dressing (QC): 5 Lower Body Dressing(FIM): 5 Lower Body Dressing (QC): 5 On/Off Footwear (QC): 5 Toileting(FIM): 5 Toileting Hygiene (QC): 4 Toilet/Commode Transfer(FIM): 5 Toilet/Commode Transfer (QC): 4 Shower Transfer(FIM): 5 Comprehension(FIM): 4 Expression (FIM): 5 Social Interaction(FIM): 5 Problem Solving(FIM): 4 Memory(FIM): 4 Additional Goals: 1-Demonstrate ADL Tasks, 2-Verbalize Understanding, 3- ImproveStrength/Douglas 1=Demonstrate adherence to instructed precautions during ADL tasks. 2=Patient will verbalize/demonstrate understanding of assistive devices/ modifications for ADL. 3=Patient will improve strength/tolerance for activity to enable patient to perform ADL's. OT Education/Plan Problem List/Assessment Pt would benefot from skilled OT to increase his independence in basic self care to allow him to safely return home Discharge Recommendations Plan/Recommendations: Continue POC Treatment Plan/Plan of Care Patient would benefit from OT for education, treatment and training to promote independence in ADL's, mobility, safety and/or upper extremity function for ADL' s. Plan of Care: ADL Retraining, Caregiver Training, Functional Mobility, Group Exercise/Act as Ind (education, exercise, funct activity, activity tolerance, socialization, memory), Orthotic Fitting/Training, UE Funct Exercise/Act, UE Neuromus Re-Ed/Coord, Visual/Perceptual Retrain, W/C Management Training Treatment Duration: Nov 25, 2017 Frequency: At least 5 of 7 days/Wk (IRF) Estimated Hrs Per Day: 1.5 hours per day (1.25 to 1.5) Agreement: Yes Rehab Potential: Fair Time/GCodes Start Time: 14:00 Stop Time: 14:15 Total Time Billed (hr/min): 15 Billed Treatment Time visit, 15 minutes exercise AIDEN GARIDNER OT November 17, 2017 15:21
[2017-11-17 18:06] VITALS: BP 131/76
[2017-11-17] MEDS: traZODone 50 MG (DESYREL) TAB PO SCH (21:45)
[2017-11-17] MEDS: QUEtiapine 25 MG (SEROquel) TAB IMMEDIATE RELEASE PEG SCH (21:45)
[2017-11-18] MEDS: DOXYCYCLINE 100 MG (VIBRAMYCIN) TABLET PO SCH (06:05)
[2017-11-18] MEDS: ARTIFICAL TEARS 0.4 ML UNIT DOSE (REFRESH PLUS) OU SCH ×4 (06:05→21:48)
[2017-11-18 06:40] VITALS: BP 126/79
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
[2017-11-18] MEDS: DOCUSATE SODIUM 10 MG/ML 10 ML UDC (COLACE) PEG SCH ×2 (08:23→21:48)
[2017-11-18] MEDS: lisINopril 10 MG (PRINIVIL) TABLET PEG SCH (08:23)
[2017-11-18] MEDS: oxyCODONE/APAP 5/325MG (PERCOCET 5) TABLET PEG PRN ×3 (08:23→18:40)
[2017-11-18] MEDS: ENOXAPARIN 30 MG/0.3 ML (LOVENOX) SYR SC SCH ×2 (08:24→21:48)
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
--- NOTE | 2017-11-18 10:35 | Speech Therapy Daily Note ---
Speech Daily Progress Note Subjective Date Seen by Provider: Nov 18, 2017 Time Seen by Provider: 08:30 The patient was seated upright in bed upon entrance. The patient greeted the clinician appropriately and was agreeable to participation in the dysphagia treatment session. The patient is eager to discharge and asked several specific questions regarding discharge to the clinician. The clinician contacted the patient's rn social services, who will discuss the patient's questions with him in the near future. Objective Dysphagia Exercises: Base of tongue retraction, laryngeal closure, and pharyngeal wall contraction exercises were continued on this date. The patient demonstrated improved and increased accuracy and independence. Ten repetitions of each exercise were performed with minimal clinician cueing. The patient was observed sipping water via cup throughout the session. No signs/ symptoms of aspiration were demonstrated. Assessment Assessment Current Status: Good Progress Treatment Plan Continue Plan of Care Communication Comprehension: 4 Expression: 5 Social Cognition Social Interaction: 4 Problem Solvin Memory: 3 Speech Short Term Goals Short Term Goals Short Term Goals 1. The patient will attend to a task for a duration of five minutes with mild clinician verbal prompting. 2. The patient will identify safety concerns in a common environment with 80% accuracy and mild clinician verbal cueing. 3. The patient will recall and demonstrate intelligibility strategies with 80% accuracy and mild clinician cueing. 4. The patient will tolerate 10/10 puree and honey-thickened liquid bolus trials without signs/symptoms of aspiration or laryngeal penetration. Time Frame-STG: Two Weeks Speech Fpc Goals Show Horse Driver Goals 1. The patient will demonstrate improved cognitive linguistic skills for increased safety and function with ADL's. 2. The patient will tolerate trials of the least restrictive consistency without signs/symptoms of aspiration. Time Frame: Four Weeks Comprehension: 4 Expression: 5 Social Interaction: 5 Problem Solvin Memory: 4 Speech-Plan Treatment Plan Speech Therapy Treatment Plan: Continue Plan of Care Continue skilled speech pathology to target improved swallowing safety. Treatment Duration: Dec 01, 2017 Frequency: 3 times per week Estimated Hrs Per Day: .5 hour per day Rehab Potential: Fair Safety Risks/Education Teaching Recipient: Patient Teaching Methods: Demonstration, Handout, Discussion Response to Teaching: Verbalize Understanding, Return Demonstration Education Topics Provided: Dysphagia Exercises Time Speech Therapy Time In: 08:30 Speech Therapy Time Out: 09:00 Total Billed Time: 30 Billed Treatment Time CHARLENE Dean ALEXIS FOX Nov 18, 2017 10:35
[2017-11-18] MEDS ORDERED: LIDOCAINE 1% INJ 20 ML 20 ML VIAL INJ NR (10:45)
[2017-11-18] MEDS ORDERED: LIDOCAINE/EPI 2% 1:100,00 (XYLOCAINE) 20 ML VIAL INJ ONE (11:00)
[2017-11-18] MEDS: LINEZOLID (ZYVOX) 600 MG TAB PO SCH ×2 (11:06→21:48)
[2017-11-18] MEDS: FLUTICASONE NASAL SPRAY (FLONASE) 16 GM BTL NS SCH (11:06)
[2017-11-18] MEDS ORDERED: TRAZ-28 PO (11:25)
[2017-11-18] MEDS ORDERED: ENOX30DI4 SC (11:25)
[2017-11-18] MEDS ORDERED: QUET25TA73 PEG (11:25)
[2017-11-18] MEDS ORDERED: OXYC-471 PEG (11:25)
[2017-11-18] MEDS ORDERED: CARB1DRO OU (11:25)
[2017-11-18] MEDS ORDERED: SALI45SP MM (11:25)
[2017-11-18] MEDS ORDERED: LINE600T5 PO (11:25)
[2017-11-18] MEDS ORDERED: LISI10TA2 PEG (11:25)
[2017-11-18] MEDS ORDERED: DOCU50LI PEG (11:25)
[2017-11-18] MEDS ORDERED: FLUT16SP22 NS (11:25)
--- NOTE | 2017-11-18 12:46 | Physical Therapy Daily Note ---
PT Daily Note-Current Subjective Pt laying Supine in bed and Nurse is just finishing with pt upon arrival. Pt agrees to PT despite fatigue. Pain Location: No Pain Reported Mental Status Patient Orientation: Person, Place, Time, Situation Attachments: Other-See Comments (BLE Immobilizers) Transfers Functional [place] Measure 0=Not Assessed/NA 4=Minimal Assistance 1=Total Assistance 5=Supervision or Setup 2=Maximal Assistance 6=Modified [place] 3=Moderate Assistance 7=Complete IndependenceIRFPAI Quality Coding Scale 6 Independent with activity with or without an assistive device 5 Patient requires set up or clean up by helper. Patient completes activity by themselves 4 Supervision or touching assist (CGA). [place] provide cues , steadying assist 3 The helper provides less than half the effort to complete the activity 2 The helper provides more than half the effort to complete the activity 1 Dependent. The helper does all the effort to complete an activity 7 Patient refused to complete or attempt activity 9 The patient did not perform the activity before the current illness or injury 88 Not attempted due to Medical conditions or safety concerns Weight Bearing Right Lower Extremity: Right Non Weight Bearing Left Lower Extremity: Left Weight Bearing/Tolerated Exercises Supine Ex: Quad Set, Glut sets, Straight leg raise, Hip abd/add Supine Reps: 10 Treatments Pt completes Supine Ex and declines receiving HEP for discharge on Tuesday, citing HH will help with Ex. Pt wants to discuss discharge and what will happen , discussed that pt has equipment needed and will be living with mother with both sisters living next door (good family support). Pt is resting at end of tx with all needs met, including next to pt. Assessment Current Status: Good Progress Pt has improved with independence & safety of transfers and mobility. BLE Immobilizers will limit where pt is able to maneuver around house and pt states will be bathing in kitchen right now. PT Short Term Goals Short Term Goals Time Frame: November 10, 2017 Gait (FIM): 1 Gait Distance Comment: 5' Gait Level of Assist: 4 Gait Assistive Device: FWW Wheelchair Distance: 100' x 4 PT Textile Machinery Instructor Goals Group Home Goals PT Textile Machinery Instructor Goals Time Frame: Nov 24, 2017 Transfers (B,C,W/C) (FIM): 5 Sit to Lying (QC): 4 Lying-Sitting on Side/Bed(QC): 4 Sit to Stand (QC): 4 Rollin Roll Left to Right (QC): 4 Chair/Deu-rq-Rjonx Xfer(QC): 4 Car Transfer (QC): 4 Gait (FIM): 1 Distance: 20' Walk 10 feet (QC): 4 Walk 10ft-Uneven Surface(QC): 4 Gait Level of Assist: 4 Gait Assistive Device: FWW Wheelchair (FIM): 6 Distance: 150' Wheel 50 feet with 2 turns (QC: 6 PT Plan Problem List Problem List: Activity Tolerance, Functional Strength, Gait Treatment/Plan Treatment Plan: Continue Plan of Care Treatment Plan: Bed Mobility, Concurrent Therapy, Education, Functional Activity [place], Functional Strength, Group Therapy, Gait, Safety, Therapeutic Exercise, Transfers Treatment Duration: Nov 24, 2017 Frequency: At least 5 of 7 days/Wk (IRF) Estimated Hrs Per Day: 1.5 hours per day Patient and/or Family Agrees t: Yes Safety Risks/Education Patient Education: Correct Positioning, Disease Process, Safety Issues Teaching Recipient: Patient Teaching Methods: Discussion Response to Teaching: Verbalize Understanding Time/GCodes Time In: 1100 Time Out: 1145 Total Billed Treatment Time: 45 Total Billed Treatment 1, FA x3 (45m) G Codes Necessary: GAYE Navarrete KNIFER UP Nov 18, 2017 12:46
--- NOTE | 2017-11-18 13:01 | Occupational Ther Daily Note ---
OT Current Status-Daily Note Mental Status/Objective Functional [place] Measure 0=Not Assessed/NA 4=Minimal Assistance 1=Total Assistance 5=Supervision or Setup 2=Maximal Assistance 6=Modified [place] 3=Moderate Assistance 7=Complete [place] ADL-Treatment Functional [place] Measure 0=Not Assessed/NA 4=Minimal Assistance 1=Total Assistance 5=Supervision or Setup 2=Maximal Assistance 6=Modified [place] 3=Moderate Assistance 7=Complete IndependenceIRFPAI Quality Coding Scale 6 Independent with activity with or without an assistive device 5 Patient requires set up or clean up by helper. Patient completes activity by themselves 4 Supervision or touching assist (CGA). [place] provide cues , steadying assist 3 The helper provides less than half the effort to complete the activity 2 The helper provides more than half the effort to complete the activity 1 Dependent. The helper does all the effort to complete an activity 7 Patient refused to complete or attempt activity 9 The patient did not perform the activity before the current illness or injury 88 Not attempted due to Medical conditions or safety concerns OT Short Term Goals Short Term Goals Time Frame: November 11, 2017 Bathing(FIM): 4 Toileting(FIM): 3 Toilet/Commode Transfer(FIM): 4 Additional Short Term Goals: 1-Demonstrate ADL Tasks, 2-Verbalize Understanding , 3-ImproveStrength/[place] 1=Demonstrate adherence to instructed precautions during ADL tasks. 2=Patient will verbalize/demonstrate understanding of assistive devices/ modifications for ADL. 3=Patient will improve strength/tolerance for activity to enable patient to perform ADL's. OT Freight Associate Goals Mcc Goals Time Frame: Nov 25, 2017 Eating (FIM): 5 Eating (QC): 5 Groomin Oral Hygiene (QC): 6 Bathing(FIM): 5 Shower/Bathe Self (QC): 4 Upper Body Dressing(FIM): 5 Upper Body Dressing (QC): 5 Lower Body Dressing(FIM): 5 Lower Body Dressing (QC): 5 On/Off Footwear (QC): 5 Toileting(FIM): 5 Toileting Hygiene (QC): 4 Toilet/Commode Transfer(FIM): 5 Toilet/Commode Transfer (QC): 4 Shower Transfer(FIM): 5 Comprehension(FIM): 4 Expression (FIM): 5 Social Interaction(FIM): 5 Problem Solving(FIM): 4 Memory(FIM): 4 Additional Goals: 1-Demonstrate ADL Tasks, 2-Verbalize Understanding, 3- ImproveStrength/[place] 1=Demonstrate adherence to instructed precautions during ADL tasks. 2=Patient will verbalize/demonstrate understanding of assistive devices/ modifications for ADL. 3=Patient will improve strength/tolerance for activity to enable patient to perform ADL's. OT Education/Plan Problem List/Assessment Pt would benefot from skilled OT to increase his independence in basic self care to allow him to safely return home Discharge Recommendations Plan/Recommendations: Continue POC Treatment Plan/Plan of Care Patient would benefit from OT for education, treatment and training to promote independence in ADL's, mobility, safety and/or upper extremity function for ADL' s. Plan of Care: ADL Retraining, Caregiver Training, Functional Mobility, Group Exercise/Act as Ind (education, exercise, funct activity, activity tolerance, socialization, memory), Orthotic Fitting/Training, UE Funct Exercise/Act, UE Neuromus Re-Ed/Coord, Visual/Perceptual Retrain, W/C Management Training Treatment Duration: Nov 25, 2017 Frequency: At least 5 of 7 days/Wk (IRF) Estimated Hrs Per Day: 1.5 hours per day (1.25 to 1.5) Agreement: Yes Rehab Potential: Fair Time/GCodes Start Time: 09:00 Stop Time: 10:00 Total Time Billed (hr/min): 60 Billed Treatment Time visit, 60 minutes ADL AIDEN GARDINER OT Nov 18, 2017 13:01
--- NOTE | 2017-11-18 14:44 | Therapy Group Daily Note ---
Therapy Daily Group Note Exercises Fine Motor, UE Exercise Other/Notes Pt. participated in group PT OT session this date. Pt. came and went via w/c . Pts. all introduced selves to one another at the table of 4 where they were seated for either CADENCE, dominoes or a card game. Pts. all introduced selves and shared at their individual tables then played group Steffi followed by individual table games. All games and activities at each table facilitated sequencing, problem solving, social interaction , reaching, UE strength and pincer grasp. This pt. asked to go back to his room after 1 hr of group. Pt. TRFd to bed SBA to CGA. Call parrish at hand. Start Time: 13:00 Stop Time: 14:00 Total Billed Treatment Time: 60 Total Billed Treatment 1,GRP MISHA JORDAN INSURANCE PREMIUM AUDITOR Nov 18, 2017 14:44
--- NOTE | 2017-11-18 15:20 | Occupational Ther Daily Note ---
OT Current Status-Daily Note Subjective Pt seen in room, up in bed, agreeable to OT and a shower. No pain reported. Appearance Alert, cooperative Mental Status/Objective Functional [place] Measure 0=Not Assessed/NA 4=Minimal Assistance 1=Total Assistance 5=Supervision or Setup 2=Maximal Assistance 6=Modified [place] 3=Moderate Assistance 7=Complete [place] ADL-Treatment Pt reported that he con on/off BSC with SBA and managed clothing and hygiene himself - as needed for going home. Pt was able to move supine to sit EOB without help. Transferred into w/c with SBA, after setup. Needs help placing and removing leg rests but he flipped arm of chair up. Pt propelled himself to shower room and helped position w/c, with help with leg rests. Transferred SBA onto transfer tub bench. Pt needed help removing braces and cast boot. Pulled pants off to knees but unable to get them the rest of the way off by himself. Pt washed and dried all parts including legs (help to dry lower legs), using transfer tub bench, grab bars, hand held shower, long handled sponge. Dressed upper body with setup, mod assist lower body. [place] placed under braces per pt request. ADLs took longer than usual due to extensive preparations and dressing changes. Pt propelled himself back to his room and was left up in w/c, all needs met. Pt anticipates DC to home with mother on Tuesday. Will need BSC with drop arm. Functional [place] Measure 0=Not Assessed/NA 4=Minimal Assistance 1=Total Assistance 5=Supervision or Setup 2=Maximal Assistance 6=Modified [place] 3=Moderate Assistance 7=Complete IndependenceIRFPAI Quality Coding Scale 6 Independent with activity with or without an assistive device 5 Patient requires set up or clean up by helper. Patient completes activity by themselves 4 Supervision or touching assist (CGA). [place] provide cues , steadying assist 3 The helper provides less than half the effort to complete the activity 2 The helper provides more than half the effort to complete the activity 1 Dependent. The helper does all the effort to complete an activity 7 Patient refused to complete or attempt activity 9 The patient did not perform the activity before the current illness or injury 88 Not attempted due to Medical conditions or safety concerns Bathing (FIM): 4 (Help drying lower legs. ) Upper Body (FIM): 5 (setup) Lower Body Dressing (FIM): 3 (help with braces, cast boot, getting pants on/ off over lower legs. ) Education OT Patient Education: Modified ADL techniques, Purpose of tx/functional activities, Transfer techniques Teaching Recipient: Patient Teaching Methods: Discussion Response to Teaching: Verbalize Understanding, Return Demonstration OT Short Term Goals Short Term Goals Time Frame: November 11, 2017 Bathing(FIM): 4 Toileting(FIM): 3 Toilet/Commode Transfer(FIM): 4 Additional Short Term Goals: 1-Demonstrate ADL Tasks, 2-Verbalize Understanding , 3-ImproveStrength/[place] 1=Demonstrate adherence to instructed precautions during ADL tasks. 2=Patient will verbalize/demonstrate understanding of assistive devices/ modifications for ADL. 3=Patient will improve strength/tolerance for activity to enable patient to perform ADL's. OT Retirement Goals Compressor Mechanic Goals Time Frame: Nov 25, 2017 Eating (FIM): 5 Eating (QC): 5 Groomin Oral Hygiene (QC): 6 Bathing(FIM): 5 Shower/Bathe Self (QC): 4 Upper Body Dressing(FIM): 5 Upper Body Dressing (QC): 5 Lower Body Dressing(FIM): 5 Lower Body Dressing (QC): 5 On/Off Footwear (QC): 5 Toileting(FIM): 5 Toileting Hygiene (QC): 4 Toilet/Commode Transfer(FIM): 5 Toilet/Commode Transfer (QC): 4 Shower Transfer(FIM): 5 Comprehension(FIM): 4 Expression (FIM): 5 Social Interaction(FIM): 5 Problem Solving(FIM): 4 Memory(FIM): 4 Additional Goals: 1-Demonstrate ADL Tasks, 2-Verbalize Understanding, 3- ImproveStrength/[place] 1=Demonstrate adherence to instructed precautions during ADL tasks. 2=Patient will verbalize/demonstrate understanding of assistive devices/ modifications for ADL. 3=Patient will improve strength/tolerance for activity to enable patient to perform ADL's. OT Education/Plan Problem List/Assessment Pt would benefot from skilled OT to increase his independence in basic self care to allow him to safely return home Discharge Recommendations Plan/Recommendations: Continue POC Treatment Plan/Plan of Care Patient would benefit from OT for education, treatment and training to promote independence in ADL's, mobility, safety and/or upper extremity function for ADL' s. Plan of Care: ADL Retraining, Caregiver Training, Functional Mobility, Group Exercise/Act as Ind (education, exercise, funct activity, activity tolerance, socialization, memory), Orthotic Fitting/Training, UE Funct Exercise/Act, UE Neuromus Re-Ed/Coord, Visual/Perceptual Retrain, W/C Management Training Treatment Duration: Nov 25, 2017 Frequency: At least 5 of 7 days/Wk (IRF) Estimated Hrs Per Day: 1.5 hours per day (1.25 to 1.5) Agreement: Yes Rehab Potential: Fair Time/GCodes Start Time: 09:00 Stop Time: 10:00 Total Time Billed (hr/min): 60 Billed Treatment Time visit, 60 minutes AIDEN CHIU OT Nov 18, 2017 15:20
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
[2017-11-18 18:50] VITALS: BP 119/74
[2017-11-18] MEDS: QUEtiapine 25 MG (SEROquel) TAB IMMEDIATE RELEASE PEG SCH (21:48)
[2017-11-18] MEDS: traZODone 50 MG (DESYREL) TAB PO SCH (21:48)
--- NOTE | 2017-11-19 02:28 | OPERATIVE REPORT ---
DATE OF SERVICE: 11/18/2017 PREOPERATIVE DIAGNOSIS: Left axillary abscess. POSTOPERATIVE DIAGNOSIS: Left axillary abscess. PROCEDURE: Incision and drainage of left axillary abscess. SURGEON: Brian Heath DO ANESTHESIA: 2% lidocaine with epinephrine 3 mL. ESTIMATED BLOOD LOSS: Minimal. COMPLICATIONS: None. INDICATIONS: The patient is a 56-year-old male with a left axillary abscess. He understands risks and benefits of procedure and wished to proceed with procedure. Consent was signed on the chart. DESCRIPTION OF PROCEDURE: Procedure was performed at bedside. The patient was prepped and draped in sterile fashion. Timeout was performed. Local anesthetic was infiltrated into the area. A 15 blade scalpel was used to make a 1.5 cm incision over the area of fluctuance. The skin and subcutaneous tissue was then opened and purulent material erupted. Culture was obtained. Loculations were broken up and wound was irrigated. Wound was then packed with quarter-inch Xeroform gauze. The area was washed and dried. Sterile bandage was applied. The patient tolerated the procedure well without any complications. The patient to continue with wound care and daily dressing changes. The patient is to continue current antibiotics and await wound cultures. Job ID: [id number] DocumentID: [id number] Dictated Date: 11/18/2017 17:12:15 Music Education Director Date: 11/19/2017 02:27:38 Dictated By: BRIAN HEATH DO
[2017-11-19 06:14] VITALS: BP 121/77
[2017-11-19] MEDS: ARTIFICAL TEARS 0.4 ML UNIT DOSE (REFRESH PLUS) OU SCH ×4 (06:25→21:34)
[2017-11-19] MEDS: oxyCODONE/APAP 5/325MG (PERCOCET 5) TABLET PEG PRN ×3 (08:07→21:34)
[2017-11-19] MEDS: LINEZOLID (ZYVOX) 600 MG TAB PO SCH ×2 (08:08→21:34)
[2017-11-19] MEDS: lisINopril 10 MG (PRINIVIL) TABLET PEG SCH (08:08)
[2017-11-19] MEDS: DOCUSATE SODIUM 10 MG/ML 10 ML UDC (COLACE) PEG SCH ×2 (08:11→19:21)
[2017-11-19] MEDS: ENOXAPARIN 30 MG/0.3 ML (LOVENOX) SYR SC SCH ×2 (08:13→21:34)
[2017-11-19] MEDS: FLUTICASONE NASAL SPRAY (FLONASE) 16 GM BTL NS SCH (08:15)
--- NOTE | 2017-11-19 12:00 | Physical Therapy Daily Note ---
PT Daily Note-Current Subjective Pt. in bed refuses PT Rx, stating he is tired and L knee hurts, 6/10 Pain Numeric Pain Scale: 6 Location: Left Location Body Site: Knee Pain Description: Ache Mental Status Patient Orientation: Normal For Age Transfers Functional [place] Measure 0=Not Assessed/NA 4=Minimal Assistance 1=Total Assistance 5=Supervision or Setup 2=Maximal Assistance 6=Modified [place] 3=Moderate Assistance 7=Complete IndependenceIRFPAI Quality Coding Scale 6 Independent with activity with or without an assistive device 5 Patient requires set up or clean up by helper. Patient completes activity by themselves 4 Supervision or touching assist (CGA). [place] provide cues , steadying assist 3 The helper provides less than half the effort to complete the activity 2 The helper provides more than half the effort to complete the activity 1 Dependent. The helper does all the effort to complete an activity 7 Patient refused to complete or attempt activity 9 The patient did not perform the activity before the current illness or injury 88 Not attempted due to Medical conditions or safety concerns Weight Bearing Right Lower Extremity: Right Non Weight Bearing Left Lower Extremity: Left Weight Bearing/Tolerated Assessment Current Status: Refused Treatment PT Short Term Goals Short Term Goals Time Frame: November 10, 2017 Gait (FIM): 1 Gait Distance Comment: 5' Gait Level of Assist: 4 Gait Assistive Device: FWW Wheelchair Distance: 100' x 4 PT Jail Goals Jail Goals PT Order Management Specialist Goals Time Frame: Nov 24, 2017 Transfers (B,C,W/C) (FIM): 5 Sit to Lying (QC): 4 Lying-Sitting on Side/Bed(QC): 4 Sit to Stand (QC): 4 Rollin Roll Left to Right (QC): 4 Chair/Wnv-di-Pbthe Xfer(QC): 4 Car Transfer (QC): 4 Gait (FIM): 1 Distance: 20' Walk 10 feet (QC): 4 Walk 10ft-Uneven Surface(QC): 4 Gait Level of Assist: 4 Gait Assistive Device: FWW Wheelchair (FIM): 6 Distance: 150' Wheel 50 feet with 2 turns (QC: 6 PT Plan Treatment/Plan Treatment Plan: Continue Plan of Care Treatment Plan: Bed Mobility, Concurrent Therapy, Education, Functional Activity Douglas, Functional Strength, Group Therapy, Gait, Safety, Therapeutic Exercise, Transfers Treatment Duration: Nov 24, 2017 Frequency: At least 5 of 7 days/Wk (IRF) Estimated Hrs Per Day: 1.5 hours per day Patient and/or Family Agrees t: Yes Time/GCodes Time In: 900 Time Out: 902 Total Billed Treatment Time: 0 Total Billed Treatment 1, No Rx, No chg G Codes Necessary: MISHA Bell EXECUTIVE COMPENSATION ANALYST Nov 19, 2017 12:00
[2017-11-19 17:23] VITALS: BP_SYST 116; BP_SYST 120; BP_DIAS 72; BP_DIAS 74
[2017-11-19] MEDS: QUEtiapine 25 MG (SEROquel) TAB IMMEDIATE RELEASE PEG SCH (21:34)
[2017-11-19] MEDS: traZODone 50 MG (DESYREL) TAB PO SCH (21:34)
[2017-11-20 05:06] VITALS: BP 130/76
[2017-11-20] MEDS: ARTIFICAL TEARS 0.4 ML UNIT DOSE (REFRESH PLUS) OU SCH ×4 (06:37→21:38)
[2017-11-20] MEDS: DOCUSATE SODIUM 10 MG/ML 10 ML UDC (COLACE) PEG SCH ×2 (08:54→19:33)
[2017-11-20] MEDS: LINEZOLID (ZYVOX) 600 MG TAB PO SCH ×2 (09:06→21:38)
[2017-11-20] MEDS: oxyCODONE/APAP 5/325MG (PERCOCET 5) TABLET PEG PRN ×3 (09:07→21:38)
[2017-11-20] MEDS: lisINopril 10 MG (PRINIVIL) TABLET PEG SCH (09:07)
[2017-11-20] MEDS: ENOXAPARIN 30 MG/0.3 ML (LOVENOX) SYR SC SCH ×2 (09:08→20:57)
[2017-11-20] MEDS: FLUTICASONE NASAL SPRAY (FLONASE) 16 GM BTL NS SCH (09:09)
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
[2017-11-20] MEDS ORDERED: ANTACID SUSP 30 ML UDC (MYLANTA) PO PRN (12:30)
[2017-11-20 17:18] VITALS: BP 116/64
[2017-11-20] MEDS: QUEtiapine 25 MG (SEROquel) TAB IMMEDIATE RELEASE PEG SCH (21:38)
[2017-11-20] MEDS: traZODone 50 MG (DESYREL) TAB PO SCH (21:38)
[2017-11-21 05:08] VITALS: BP 121/73
[2017-11-21] MEDS: ARTIFICAL TEARS 0.4 ML UNIT DOSE (REFRESH PLUS) OU SCH ×2 (06:06→11:48)
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
[2017-11-21] MEDS: lisINopril 10 MG (PRINIVIL) TABLET PEG SCH (08:33)
[2017-11-21] MEDS: ENOXAPARIN 30 MG/0.3 ML (LOVENOX) SYR SC SCH (08:33)
[2017-11-21] MEDS: LINEZOLID (ZYVOX) 600 MG TAB PO SCH (08:33)
[2017-11-21] MEDS: FLUTICASONE NASAL SPRAY (FLONASE) 16 GM BTL NS SCH (08:33)
[2017-11-21] MEDS: DOCUSATE SODIUM 10 MG/ML 10 ML UDC (COLACE) PEG SCH ×2 (08:33→09:12)
--- NOTE | 2017-11-21 08:52 | Speech Therapy Daily Note ---
Speech Daily Progress Note Subjective Date Seen by Provider: Nov 21, 2017 Time Seen by Provider: 08:33 The patient was seated upright in bed upon entrance. The patient greeted the clinician appropriately and was agreeable to participation in the dysphagia treatment session. Objective Dysphagia Exercises: Base of tongue retraction, laryngeal closure, and pharyngeal wall contraction exercises were continued on this date. The patient demonstrated improved and increased accuracy and independence. Five repetitions of each exercise were performed with minimal clinician cueing. The patient denied questions or concerns regarding dysphagia exercises and agreed to continue exercises post discharge. The patient was observed sipping water via cup throughout the session. No signs/ symptoms of aspiration were demonstrated. Assessment Assessment Current Status: Good Progress Treatment Plan Continue Plan of Care Communication Comprehension: 4 Expression: 5 Social Cognition Social Interaction: 5 Problem Solvin Memory: 4 Speech Short Term Goals Short Term Goals Short Term Goals 1. The patient will attend to a task for a duration of five minutes with mild clinician verbal prompting. 2. The patient will identify safety concerns in a common environment with 80% accuracy and mild clinician verbal cueing. 3. The patient will recall and demonstrate intelligibility strategies with 80% accuracy and mild clinician cueing. 4. The patient will tolerate 10/10 puree and honey-thickened liquid bolus trials without signs/symptoms of aspiration or laryngeal penetration. Time Frame-STG: Two Weeks Speech Detention Goals [employer] Field Supervisor Goals 1. The patient will demonstrate improved cognitive linguistic skills for increased safety and function with ADL's. 2. The patient will tolerate trials of the least restrictive consistency without signs/symptoms of aspiration. Time Frame: Four Weeks Comprehension: 4 (MET) Expression: 5 (MET) Social Interaction: 5 (MET) Problem Solvin (MET) Memory: 4 (MET) Speech-Plan Treatment Plan Speech Therapy Treatment Plan: Discontinue ST The patient is scheduled to discharge on this date. Treatment Duration: Dec 01, 2017 Frequency: 3 times per week Estimated Hrs Per Day: .5 hour per day Rehab Potential: Fair Safety Risks/Education Teaching Recipient: Patient Teaching Methods: Demonstration, Handout, Discussion Response to Teaching: Verbalize Understanding Education Topics Provided: Dysphagia Exercises Time Speech Therapy Time In: 08:33 Speech Therapy Time Out: 08:48 Total Billed Time: 15 Billed Treatment Time 1CHARLENE ALEXIS FOX Nov 21, 2017 08:52
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
[2017-11-21] MEDS ORDERED: CIPROFLOXACIN 500 MG (CIPRO) TABLET PO SCH (09:00)
[2017-11-21] MEDS: oxyCODONE/APAP 5/325MG (PERCOCET 5) TABLET PEG PRN ×2 (09:05→14:12)
--- NOTE | 2017-11-21 10:35 | Physical Therapy Daily Note ---
PT Daily Note-Current Subjective Patient in wheelchair pre tx, agrees to PT, has 5/10 pain in his right knee. Patient states he is very tired and isn't sure how much he can do but is willing to participate. Appearance Patient in wheelchair post tx in his room. Mental Status Patient Orientation: Person, Place, Situation Attachments: PEG Tube bilateral leg braces Transfers Functional [place] Measure 0=Not Assessed/NA 4=Minimal Assistance 1=Total Assistance 5=Supervision or Setup 2=Maximal Assistance 6=Modified [place] 3=Moderate Assistance 7=Complete IndependenceIRFPAI Quality Coding Scale 6 Independent with activity with or without an assistive device 5 Patient requires set up or clean up by helper. Patient completes activity by themselves 4 Supervision or touching assist (CGA). [place] provide cues , steadying assist 3 The helper provides less than half the effort to complete the activity 2 The helper provides more than half the effort to complete the activity 1 Dependent. The helper does all the effort to complete an activity 7 Patient refused to complete or attempt activity 9 The patient did not perform the activity before the current illness or injury 88 Not attempted due to Medical conditions or safety concerns Transfers (B, C, W/C) (FIM): 4 Scootin Rollin Roll Left to Right (QC): 6 Supine to/from Sit: 6 Sit to/from Stand: 4 Sit to Lying (QC): 6 Sit to Stand (QC): 6 Chair/Zkm-lb-Iyoga Xfer(QC): 4 Bed to/from Chair: 4 Car Transfer (QC): 88 Patient performs bed mobility with mod I, supine to sit with mod I, performs a sliding transfer without the sliding board with SBA, sit to stand with min assist. Patient cannot perform a car transfer due to his legs being in full extension due to his braces. Weight Bearing Right Lower Extremity: Right Non Weight Bearing Left Lower Extremity: Left Weight Bearing/Tolerated Gait Training Does the Patient Walk?: Yes Gait (FIM): 2 Distance: 60' Walk 10 feet (QC): 4 Walk 50 ft with 2 Turns(QC): 4 Walking 10ft/uneven surface-QC: 4 Gait Level of Assist: 4 Gait Persons Needed: 1 Gait Assistive Device: FWW Patient can ambulate 60' with CGA using a rolling walker, including 50' with at least 2 turns of 90 degrees and 10' over an uneven surface. Patient is compliant with his weight bearing status. Wheelchair Training Does the Pt Use a Wheelchair?: Yes Wheelchair (FIM): 6 Distance: 200'x2 Wheel 50 ft with 2 turns (QC): 6 Wheel 150 ft (QC): 6 Type of Wheelchair: Manual Stair Training Patient cannot perform stairs because his legs are in braces that lock them out in full extension. Treatments bed mobility and transfers, wheelchair mobility, ambulation Assessment Current Status: Fair Progress improved bed mobility and transfers PT Short Term Goals Short Term Goals Time Frame: November 10, 2017 Gait (FIM): 1 Gait Distance Comment: 5' Gait Level of Assist: 4 Gait Assistive Device: FWW Wheelchair Distance: 100' x 4 PT Mcc Goals Mcc Goals PT Adaptive Physical Educator Goals Time Frame: Nov 24, 2017 Transfers (B,C,W/C) (FIM): 5 (met) Sit to Lying (QC): 4 (met) Lying-Sitting on Side/Bed(QC): 4 (met) Sit to Stand (QC): 4 Rollin (met) Roll Left to Right (QC): 4 (met) Chair/Zwo-cr-Kkctv Xfer(QC): 4 (mt) Car Transfer (QC): 4 Gait (FIM): 1 (met) Distance: 20' Walk 10 feet (QC): 4 (met) Walk 10ft-Uneven Surface(QC): 4 (met) Gait Level of Assist: 4 (met) Gait Assistive Device: FWW Wheelchair (FIM): 6 (met) Distance: 150' Wheel 50 feet with 2 turns (QC: 6 (met) PT Plan Problem List Problem List: Activity Tolerance, Functional Strength, Safety, Balance, Gait, Transfer, Bed Mobility, ROM Treatment/Plan Treatment Plan: Discontinue PT Treatment Plan: Bed Mobility, Concurrent Therapy, Education, Functional Activity [place], Functional Strength, Group Therapy, Gait, Safety, Therapeutic Exercise, Transfers Treatment Duration: Nov 24, 2017 Frequency: At least 5 of 7 days/Wk (IRF) Estimated Hrs Per Day: 1.5 hours per day Patient and/or Family Agrees t: Yes Safety Risks/Education Patient Education: Gait Training, Transfer Techniques, Correct Positioning, W/ C Management, Safety Issues Teaching Recipient: Patient Teaching Methods: Demonstration, Discussion Response to Teaching: Reinforcement Needed Discharge Recommendations Plan Patient is discharging from this facility today, he will be discharged from PT. Time/GCodes Time In: 1010 Time Out: 1030 Total Billed Treatment Time: 20 Total Billed Treatment 1 visit GT 20' FARIHA REYES PT Nov 21, 2017 10:35
--- NOTE | 2017-11-21 10:37 | Occupational Ther Daily Note ---
OT Current Status-Daily Note Subjective Pt seen in room, up in bed, agreeable to OT. "Bummed" about not getting to go home. No pain mentioned. Appearance Alert, cooperative Mental Status/Objective Functional Sloan Measure 0=Not Assessed/NA 4=Minimal Assistance 1=Total Assistance 5=Supervision or Setup 2=Maximal Assistance 6=Modified Sloan 3=Moderate Assistance 7=Complete Sloan Attachments: PEG Tube ADL-Treatment Pt moved to EOB without help but needed help to put cast shoe on. Transferred SBA to [facility] but needs help to attach leg rests. He is able to lock brakes. Pt propelled himself to shower room. Transferred to transfer tub bench with SBA, from [facility]. help needed to doff and don braces, cast boot, cast shoe, stockinette after nursing changed dressings. Dressed upper body setup, lower body mod assist. Pt transferred back to [facility] and took himself back to his room. Pt left up in [facility], all needs met. Functional Sloan Measure 0=Not Assessed/NA 4=Minimal Assistance 1=Total Assistance 5=Supervision or Setup 2=Maximal Assistance 6=Modified Sloan 3=Moderate Assistance 7=Complete IndependenceIRFPAI Quality Coding Scale 6 Independent with activity with or without an assistive device 5 Patient requires set up or clean up by helper. Patient completes activity by themselves 4 Supervision or touching assist (CGA). [place] provide cues , steadying assist 3 The helper provides less than half the effort to complete the activity 2 The helper provides more than half the effort to complete the activity 1 Dependent. The helper does all the effort to complete an activity 7 Patient refused to complete or attempt activity 9 The patient did not perform the activity before the current illness or injury 88 Not attempted due to Medical conditions or safety concerns Eating (FIM): 6 (Pt able to order own food (pureed diet), open packages, feed himself without AD or assistance. He also has tube feedings at night. Pt report) Eating (QC): 6 Grooming (FIM): 6 (Able to comb hair, shave (electric razor), wash hands and face at w/c level. Pt report) Oral Hygiene (QC): 6 Bathing (FIM): 5 (Able to wash and dry all parts except back when showering, with setup. Long handled sponge, hand held shower, grab bars, transfer tub bench. (Help needed to take dressings off legs before showering)) Shower/Bathe Self (QC): 5 (setup) Upper Body (FIM): 5 (Doffed and donned shirt with setup. ) Upper Body Dressing (QC): 5 (setup) Lower Body Dressing (FIM): 3 (Help needed to get pants on/off over feet but able to pull them up from knee level and over hips. Help to put cast boot, cast shoe, leg braces on) Lower Body Dressing (QC): 3 On/Off Footwear (QC): 1 (Unable to do these himself) Toileting (FIM): 5 (Setup, SBA to manage clothing, hygiene on BSC with drop arm ) Toileting Hygiene (QC): 4 (SBA) Toilet/Commode Transfer (FIM): 5 (SBA, BSC with drop arm (PT report)) Toilet Transfer (QC): 4 (SBA, transfer to BSC with drop arm, not using sliding board) Shower Transfer(FIM): 5 (SBA transfer on/off transfer tub bench from w/c) Education OT Patient Education: Progress toward Goal/Update tx plan, Purpose of tx/ functional activities Teaching Recipient: Patient Teaching Methods: Discussion Response to Teaching: Verbalize Understanding OT Short Term Goals Short Term Goals Time Frame: November 11, 2017 Bathing(FIM): 4 Toileting(FIM): 3 Toilet/Commode Transfer(FIM): 4 Additional Short Term Goals: 1-Demonstrate ADL Tasks, 2-Verbalize Understanding , 3-ImproveStrength/Douglas 1=Demonstrate adherence to instructed precautions during ADL tasks. 2=Patient will verbalize/demonstrate understanding of assistive devices/ modifications for ADL. 3=Patient will improve strength/tolerance for activity to enable patient to perform ADL's. OT Chcf Goals Chcf Goals Time Frame: Nov 25, 2017 Eating (FIM): 5 (met 6-4-18) Eating (QC): 5 (met 6-4-18) Groomin (met 6-4-18) Oral Hygiene (QC): 6 (met 6-4-18) Bathing(FIM): 5 (met 6-4-18) Shower/Bathe Self (QC): 4 (met 6-4-18) Upper Body Dressing(FIM): 5 (met 6-4-18) Upper Body Dressing (QC): 5 (met 6-4-18) Lower Body Dressing(FIM): 5 (not met 6-4-18) Lower Body Dressing (QC): 5 (not met 6-4-18) On/Off Footwear (QC): 5 (not met 6-4-18) Toileting(FIM): 5 (met 6--18) Toileting Hygiene (QC): 4 (met 6--18) Toilet/Commode Transfer(FIM): 5 (met 6--18) Toilet/Commode Transfer (QC): 4 (met 6--18) Shower Transfer(FIM): 5 (met 6--18) Comprehension(FIM): 4 (MET) Expression (FIM): 5 (MET) Social Interaction(FIM): 5 (MET) Problem Solving(FIM): 4 (MET) Memory(FIM): 4 (MET) Additional Goals: 1-Demonstrate ADL Tasks, 2-Verbalize Understanding, 3- ImproveStrength/Douglas 1=Demonstrate adherence to instructed precautions during ADL tasks. 2=Patient will verbalize/demonstrate understanding of assistive devices/ modifications for ADL. 3=Patient will improve strength/tolerance for activity to enable patient to perform ADL's. OT Education/Plan Problem List/Assessment Pt would benefot from skilled OT to increase his independence in basic self care to allow him to safely return home Discharge Recommendations Plan/Recommendations: Discharge/Goals Met (see tx plan for specifics) Treatment Plan/Plan of Care Patient would benefit from OT for education, treatment and training to promote independence in ADL's, mobility, safety and/or upper extremity function for ADL' s. Plan of Care: ADL Retraining, Caregiver Training, Functional Mobility, Group Exercise/Act as Ind (education, exercise, funct activity, activity tolerance, socialization, memory), Orthotic Fitting/Training, UE Funct Exercise/Act, UE Neuromus Re-Ed/Coord, Visual/Perceptual Retrain, W/C Management Training Treatment Duration: Nov 25, 2017 Frequency: At least 5 of 7 days/Wk (IRF) Estimated Hrs Per Day: 1.5 hours per day (1.25 to 1.5) Agreement: Yes Rehab Potential: Fair Time/GCodes Start Time: 09:00 Stop Time: 10:05 Total Time Billed (hr/min): 65 Billed Treatment Time visit, 65 minutes ADL AIDEN GARDINER OT Nov 21, 2017 10:37
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
[2017-11-21 15:15] VITALS: BP 121/73
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
== END 2017-11-21 15:15 | DRG 502 ==
PROVIDERS: ADMIT Physical Medicine & Rehabilitation; ATTEND Physical Medicine & Rehabilitation
PROC: 0J9F0ZZ Drainage of Left Upper Arm Subcutaneous Tissue and Fascia, Open Approach (ICD-10-PCS; principal; 2017-11-18)
DX: S32.421D Displaced fracture of posterior wall of right acetabulum, subsequent encounter for fracture with routine healing (principal); S82.002D Unspecified fracture of left patella, subsequent encounter for closed fracture with routine healing; S02.601 Fracture of unspecified part of body of right mandible; S42.221D 2-part displaced fracture of surgical neck of right humerus, subsequent encounter for fracture with routine healing; S92.902D Unspecified fracture of left foot, subsequent encounter for fracture with routine healing; S81.011D Laceration without foreign body, right knee, subsequent encounter; S92.001D Unspecified fracture of right calcaneus, subsequent encounter for fracture with routine healing; S12.600D Unspecified displaced fracture of seventh cervical vertebra, subsequent encounter for fracture with routine healing; S06.9X9S Unspecified intracranial injury with loss of consciousness of unspecified duration, sequela; R41.89 Other symptoms and signs involving cognitive functions and awareness; R45.87 Impulsiveness; R13.10 Dysphagia, unspecified; R47.1 Dysarthria and anarthria; I10 Essential (primary) hypertension; B19.20 Unspecified viral hepatitis C without hepatic coma; L02.422 Furuncle of left axilla; L02.12 Furuncle of neck; L02.224 Furuncle of groin; B95.62 Methicillin resistant Staphylococcus aureus infection as the cause of diseases classified elsewhere
CPT/HCPCS: 36415; 70491; 74230; 80053; 80076; 85025; 86803; 87070; 87077; 87186; 87205; 93880; 94760